=== PATIENT | female | born 1940 | race Caucasian/White ===

== ENCOUNTER 2017-11-09 10:06 | Day surgery (SDC) | payer OTHER, MEDICARE ==
[2017-11-06 19:05] VITALS: BMI 20.9
[2017-11-09 12:28] VITALS: TEMP 97.9
[2017-11-09 12:48] VITALS: BP 111/65; PULSE 65
--- NOTE | 2017-11-10 16:05 | PATH ---
Surgical Pathology Report Patient Name: NAKIA PROCTOR [facility]. Rec. #: [id number] /Age/Gender: 1940 (Age: 77) / F Account: [id number] Location: [facility]-ENDOSCOPY Taken: 11/09/2017 Received: 11/09/2017 Reported: 11/10/2017 Physicians: Omar Palafox M.D. Specimen(s) Received RIGHT COLON Clinical History Rule out colon cancer Postoperative diagnosis: Polyp Final Diagnosis COLON, RIGHT, BIOPSY: SESSILE SERRATED POLYP Electronically Signed Tanja Allred M.D. Gross Description Received in formalin, labeled "right colon" are 2 mcgrath, irregular portions of soft tissue measuring 0.1 and 1.1 cm. in greatest dimension. The specimens are submitted in toto in one cassette. 11/09/201711/09/2017
== END 2017-11-09 12:45 | disposition home or self-care (01) ==
LOC: FASU-ENDO 10:06
PROVIDERS: ATTEND Internal Medicine Gastroenterology
PROC: 0DBK8ZX Excision of Ascending Colon, Via Natural or Artificial Opening Endoscopic, Diagnostic (ICD-10-PCS; principal; 2017-11-09 11:21)
DX: D12.2 Benign neoplasm of ascending colon (principal); K57.30 Diverticulosis of large intestine without perforation or abscess without bleeding; K64.8 Other hemorrhoids; K62.5 Hemorrhage of anus and rectum; R19.4 Change in bowel habit
CPT/HCPCS: 88305-TC

== ENCOUNTER 2018-04-26 22:27 | Emergency (ER) | payer OTHER, MEDICARE ==
--- NOTE | 2018-04-26 22:55 | PDOC ---
Attending Attestation - Physicial Exam PE: 04/26/18 23:58 GENERAL: +thin and petite. Well developed, well nourished. Awake and alert. No acute distress. HEENT: +LT temporal swelling. +LT temporal pain.Normocephalic, atraumatic. PERRLA, EOMI. No conjunctival pallor. Sclera are non-icteric. Moist mucous membranes. Oropharynx is clear. NECK: No midline cervical tenderness. Supple. Full ROM. No JVD. Carotid pulses 2+ and symmetric, without bruits. No thyromegaly. No lymphadenopathy. CARDIOVASCULAR: Regular rate and rhythm. No murmurs, rubs, or gallops. Distal pulses are 2+ and symmetric. PULMONARY: No evidence of respiratory distress. Lungs clear to auscultation bilaterally. No wheezing, rales or rhonchi. ABDOMINAL: Soft. Non-tender. Non-distended. No rebound or guarding. No organomegaly. Normoactive bowel sounds. MUSCULOSKELETAL Normal range of motion at all joints. No bony deformities or tenderness. No CVA tenderness. EXTREMITIES: +LT knee pain on ambulation. +RT knee scar s/p knee replacement. +able to stand and bear weight. No cyanosis. No clubbing. No edema. No calf tenderness. SKIN: Warm and dry. Normal capillary refill. No rashes. No jaundice. NEUROLOGICAL: Alert, awake, appropriate. Cranial nerves 2-12 intact. No motor deficits in the in face, upper extremities and lower extremities. Normal speech. Toes are down- going bilaterally. PSYCHIATRIC: Cooperative. Good eye contact. Appropriate mood and affect - Medical Decision Making 04/27/18 01:40 EXAM: CERVICAL SPINE CT W/O CONTR HISTORY: Patient fell COMPARISON: No prior cervical spine CTs sent for comparison. FINDINGS: There is a grade 1-2 anterolisthesis of C3 on C4. This probably degenerative in nature (but in the absence of old scans it is difficult to confirm. Correlate with pain/tenderness in this area. Slight anterolisthesis of C7 on T1 is probably degenerative as well. The remainder of the cervical vertebrae are normally aligned without fracture. Degenerative changes are noted. EXAM: CT brain without contrast HISTORY: Trauma fall COMPARISON: None. FINDINGS: Involutional changes. 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 Mild chronic microvascular changes. No hemorrhage. Osseous structures are intact Read by Herminio Leigh MD <Eliza Velazquez - Last Filed: 04/27/18 01:40> - Resident Resident Name: Tessy Cruz - ED Attending Attestation I have performed the following: I have examined & evaluated the patient, The case was reviewed & discussed with the resident, I agree w/resident's findings & plan, Exceptions are as noted - HPI HPI: 04/26/18 23:11 77-year-old female who was trying was running and fell forwards and now has complaint of hitting the left side of her head, her left knee and her left hand. She has history of dementia, but she is alert and conversant. She usually ambulates with a cane due to her chronic left knee pain. She has had a knee replacement on her right knee and she has had hip replacement in the past. - Medical Decision Making 04/26/18 23:12 Alert and conversant 77-year-old female who has a history of dementia. She presents with her son after a mechanical fall while running. She thought that her cat was outside the house and ran to catch it and fell forward. Prior to this she was doing her [employer] class. 04/27/18 00:47 CAT scan of the head without contrast findings. 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 Mild chronic microvascular changes No hemorrhage. Osseous structures are intact pt is NOT on anticoagulation 04/27/18 01:43 pelvic no fractures,old ORIF knee radiograph: no dislocation, no acute fracture left hand no acute fracture,significant DJD <Yin Chaves - Last Filed: 04/27/18 01:44> Attestations - Attestations 04/27/18 00:06 Documentation prepared by Eliza Velazquez, acting as medical technologist clinical for Yin Chaves MD. <Eliza Velazquez - Last Filed: 04/27/18 01:40>
--- NOTE | 2018-04-26 22:59 | PDOC ---
History of Present Illness - General Stated Complaint: FALL Time Seen by Provider: 04/26/18 22:55 - History of Present Illness Initial Comments: Nancy Dugan is a 77yo woman with a PMH of dementia, R knee replacement, and previous R hip fracture s/p surgical repair who presents after mechanical fall outside her home this evening. Her son, who is her healthcare proxy, is at bedside. Ms Dugan reports that she went to a [employer] class this evening (dropped off by her son); the class ended at 9pm and she got a ride home. Prior to walking into the house, she thought that she saw her cat running in the alley, and she started to morgan the cat. She then realized it was likely not her cat, but she tripped and fell in the dark. She is not sure what part of her body hit the ground. She denies any lightheadedness, SOB, chest pain or other symptoms before the fall. She denies LOC. Ms Dugan was unable to stand (did not attempt ) after the fall, but she was able to crawl up the front steps and call a neighbor, who called an ambulance. Per her son, her class ended at 9pm and he was informed about the ambulance at 9:15. It does not appear that Ms Dugan was outside or on the ground for more than a few minutes. Ms Dugan is unable to report exactly where she hurts at this time. She does note that both knees, her right hip, and her shoulders hurt though notes that the [employer] class was very straining on her arms. Her son states that the left knee and right hip pain are chronic. She is unable to distinguish whether the pain is different at this time. Past History - Past Medical History Allergies/Adverse Reactions: Allergies Allergy/AdvReac Type Severity Reaction Status Date / Time Sulfa (Sulfonamide Allergy Unknown Verified 04/26/18 23:07 Antibiotics) sulfamethoxazole Allergy Verified 04/26/18 23:07 [From Bactrim] trimethoprim [From Bactrim] Allergy Verified 04/26/18 23:07 midazolam [From Versed] AdvReac Severe SEVERE Verified 04/26/18 23:07 MEMORY LOSS FOR SIX MONTHS AFER RECEIVING Opioids - Morphine Analogues AdvReac Verified 04/26/18 23:07 Home Medications: Ambulatory Orders Kirill/Vit B12/Folic Acid/Vit B6 [Folic Acid-Vit B6-Vit B12 Tab] 1 each PO DAILY L.acidoph,Paracasei, B.lactis [Probiotic] 1 each PO DAILY 11/06/17 Levocarnitine [l-Carnitine] 500 mg PO DAILY 11/06/17 Lutein [Natural Lutein] 20 mg PO DAILY 11/06/17 S-Adenosylmethionine Sul Tosyl [Edwin-E] 400 mg PO DAILY 11/06/17 Ubidecarenone [Coq-10] 200 mg PO DAILY 11/06/17 Anemia: No Asthma: No Cancer: No Cardiac Disorders: No CVA: No COPD: No CHF: No Dementia: No (PT HAS MEMORY LOSS) Diabetes: No GI Disorders: Yes (REDUNDANT BOWEL) Disorders: No HTN: No Hypercholesterolemia: No Liver Disease: No Seizures: No Thyroid Disease: No - Surgical History Abdominal Surgery: No Appendectomy: No Cardiac Surgery: No Cholecystectomy: No Lung Surgery: No Neurologic Surgery: No Orthopedic Surgery: Yes (R KNEE REPLACEMENT) - Immunization History Td Vaccination: No Immunization Up to Date: No - Suicide/Smoking/Psychosocial Hx Smoking Status: No Smoking History: Never smoked Years of Tobacco Use: 0 Number of Cigarettes Smoked Daily: 0 Hx Alcohol Use: No Drug/Substance Use Hx: No Substance Use Type: None Hx Substance Use Treatment: No Trauma Specific PMHX - Complaint Specific PMHX Arthritis: No Back Injury: No Neck Injury: No Hx Sacro Iliac Joint Dysfunction: No Other History: h/o right hip fracture s/p surgical repair, chronic hip and knee pain Review of Systems - Review of Systems Comments:: General: No fevers, no chills, no weight or appetite change, no malaise HEENT: No changes in vision, no changes in hearing, no congestion, no sore throat CV: No chest pain, no palpitations, no LE edema Pulm: No SOB, no cough, no wheezing GI: No nausea or vomiting, no change in bowel habits, no melena : No frequency, no urgency, no dysuria Musc: See HPI Skin: No rash, no lesions, no erythema Endo: No excessive thirst, no heat/cold intolerance Heme: No unusual bruising or bleeding, no swollen glands Neuro: No syncope, no numbness/tingling, no focal weakness. h/o dementia Vasc: No claudication Psych: No recent change in mood, no SI or HI *Physical Exam - Physical Exam Comments: General: Comfortable, no acute distress HEENT: PERRL, EOMI, MMM, voice normal, normal neck ROM, no LAD. Quarter-sized ecchymosis at lateral L eyebrow. Cards: RRR, no murmur appreciated Pulm: Comfortable on room air, clear to auscultation bilaterally Abd: Soft, nontender, nondistended Ext: No LE edema. ROM intact. Strength 5/5 and equal bilaterally. Able to ambulate, bear weight on BLE. Reports TTP diffusely on upper extremities, but otherwise normal UE exam. Reports pain on R hip and R medial/lateral knee w/o visible injury. Pain to palpation of L 5th finger and ulnar surface of hand Vasc: Extremities WWP. Skin: Normal color, no rashes or lesions Neuro: A&Ox3, CN grossly intact, normal speech, motor/sensory grossly intact and symmetric Psych: Mood appropriate to situation Medical Decision Making - Medical Decision Making 04/26/18 23:33 Nancy Dugan is a 77yo woman with a PMH of dementia, R knee replacement and surgical repair of R hip fracture who presents following a mechanical fall at home. - Story convincing for mechanical fall without preceding symptoms. No LOC, but Ms Dugan has forehead ecchymosis and appears frail. CT head and c-spine to rule out acute injury, fracture, intracranial bleed. - Unable to determine from history whether her left knee pain is chronic or acute. Per son, the knee and hip pain are chronic, but reporting pain on exam. Will xray to r/o injury. Also xray L hand as she reports pain at 5th finger. No obvious injuries - 650mg acetaminophen for pain 04/27/18 00:14 - Xrays of L hand, knee, and pelvis reviewed. No fracture, no dislocation. Extensive DJD. - Pt at CT currently. If scans are negative, will likely d/c home as Ms Dugan lives with her son, who seems very reliable 04/27/18 01:35 - CT head and CT c-spine negative for acute injury - Discussed home care with Ms Dugan and her son, who states understanding and agreement. Will follow up with her PMD. Discussed with Dr Chaves. Tessy Cruz PGY1 *DC/Admit/Observation/Transfer Diagnosis at time of Disposition: Fall - Discharge Dispostion Condition at time of disposition: Stable - Referrals - Patient Instructions Printed Discharge Instructions: DI for Closed Head Injury Additional Instructions: Discharge Instructions: - You were seen in the emergency department following a fall at home - You had xrays of your left knee, right hip, and left hand. You also had CT scans of your head and neck. These were all normal, without any fracture, head bleed, or other acute injury. - At home, you may use acetaminophen (Tylenol) 650mg every 6-8 hours as needed for pain. If there is pain or swelling on your face, hand, or knee you can apply ice packs for 15-20minutes every 2 hours - Make an appointment to follow up with your regular doctor within the next week to make sure you are healing well. - Seek immediate medical care if you (or family) notice any increased sleepiness , confusion, significant headache that does not improve with medication, or you have any of these along with 3 or more episodes of vomiting. - Post Discharge Activity
[2018-04-26 23:08] VITALS: BMI 20.5
[2018-04-26] MEDS ORDERED: ACETAMINOPHEN 325 MG TABLET (FP) PO ONE (23:08)
[2018-04-27 01:58] VITALS: BP 123/68; PULSE 88; TEMP 98.5
== END 2018-04-27 01:46 | disposition home or self-care (01) ==
LOC: JER 22:27
DX: S00.12XA Contusion of left eyelid and periocular area, initial encounter (principal); M25.562 Pain in left knee; M79.642 Pain in left hand; W18.39XA Other fall on same level, initial encounter; Y93.02 Activity, running; Y92.018 Other place in single-family (private) house as the place of occurrence of the external cause; Y99.8 Other external cause status; F03.90 Unspecified dementia, unspecified severity, without behavioral disturbance, psychotic disturbance, mood disturbance, and anxiety; Z96.651 Presence of right artificial knee joint; Z88.2 Allergy status to sulfonamides; Z88.8 Allergy status to other drugs, medicaments and biological substances
CPT/HCPCS: 70450-TC; 72125-TC; 72170-TC-FY; 73130-TC-LT-FY; 73560-TC-LT-FY; 99282-25

== ENCOUNTER 2018-04-28 16:40 | Emergency (ER) | payer OTHER, MEDICARE ==
[2018-04-28 16:44] VITALS: BMI 20.5
[2018-04-28] MEDS ORDERED: ACETAMINOPHEN 325 MG TABLET (FP) PO ONE (16:52)
--- NOTE | 2018-04-28 16:53 | PDOC ---
Attending Attestation - Resident Resident Name: Nancy Milligan - ED Attending Attestation I have performed the following: I have examined & evaluated the patient, The case was reviewed & discussed with the resident, I agree w/resident's findings & plan, Exceptions are as noted - HPI HPI: 04/28/18 17:36 Patient with left wrist pain subsequent to a fall several days ago. X-ray at that time was negative for acute fracture, but showed extensive degenerative disease. The ulnar aspect of the wrist is always swollen, but pain is more severe now. There is a history of osteoarthritis but no rheumatoid arthritis or gout. 04/28/18 17:40 - Physicial Exam PE: 04/28/18 17:37 The left wrist shows soft tissue swelling over the radial aspect of the wrist, especially the ulnar styloid. There is no warmth or erythema which would suggest infection. There are no wounds or abrasions. Pulses are full. No distal sensory or motor deficits. Capillary refill intact. - Medical Decision Making 04/28/18 17:38 Assessment: Repeat x-ray shows no acute fracture but extensive degenerative disease with bony erosions and calcium deposits. Most likely this is an inflammatory reaction due to trauma superimposed on extensive DJD. Plan: Volar splint for immobilization. Sling for elevation. Ice. Rest. Small dose of anti-inflammatory medication for just 2 or 3 days. She has a primary care physician with whom she plans to follow-up in 2-3 days, and is referred to an orthopedist if pain and swelling persist or worsen. She is fully ambulatory and more comfortable, in no severe pain or other distress upon discharge the son to follow-up as directed.
[2018-04-28] MEDS ORDERED: ACETAMINOPHEN 325 MG TABLET (FP) ONE (17:06)
[2018-04-28 17:12] VITALS: BP 126/68; PULSE 69; TEMP 97.6
--- NOTE | 2018-04-28 17:30 | PDOC ---
History of Present Illness - General Chief Complaint: Pain, Acute Stated Complaint: LEFT WRIST PAIN Time Seen by Provider: 04/28/18 16:50 History Source: Patient, Family Exam Limitations: No Limitations - History of Present Illness Initial Comments: 04/28/18 17:22 77YOF with h/o dementia, right knee replacement, right hip replacement 2/2 fracture, who returns to the ED 2 days after a fall, now with worsening left wrist and hand pain. She had what sounds to be a mechanical fall 2 nights ago, for which she was seen at [facility] and had CT head/C-spine, and XR chest , pelvis, and left hand. The imaging showed no acute fractures, no ICH or other concerning abnormality. The hand XR was read by radiologist as no acute fracture. The patient notes that the pain and swelling and redness have been worsening since then. She has not tried taking analgesics because she "tries to stay away from that stuff." She notes a bit of mental fogginess since the fall, but otherwise no new symptoms except as stated above. Past History - Past Medical History Allergies/Adverse Reactions: Allergies Allergy/AdvReac Type Severity Reaction Status Date / Time Sulfa (Sulfonamide Allergy Unknown Verified 04/28/18 16:41 Antibiotics) sulfamethoxazole Allergy Verified 04/28/18 16:41 [From Bactrim] trimethoprim [From Bactrim] Allergy Verified 04/28/18 16:41 midazolam [From Versed] AdvReac Severe SEVERE Verified 04/28/18 16:41 MEMORY LOSS FOR SIX MONTHS AFER RECEIVING Opioids - Morphine Analogues AdvReac Verified 04/28/18 16:41 Home Medications: Ambulatory Orders Kirill/Vit B12/Folic Acid/Vit B6 [Folic Acid-Vit B6-Vit B12 Tab] 1 each PO DAILY L.acidoph,Paracasei, B.lactis [Probiotic] 1 each PO DAILY 11/06/17 Levocarnitine [l-Carnitine] 500 mg PO DAILY 11/06/17 Lutein [Natural Lutein] 20 mg PO DAILY 11/06/17 S-Adenosylmethionine Sul Tosyl [Edwin-E] 400 mg PO DAILY 11/06/17 Ubidecarenone [Coq-10] 200 mg PO DAILY 11/06/17 Ibuprofen [Motrin -] 200 mg PO TID #10 tablet 04/28/18 Anemia: No Asthma: No Cancer: No Cardiac Disorders: No CVA: No COPD: No CHF: No Dementia: No (PT HAS MEMORY LOSS) Diabetes: No GI Disorders: Yes (REDUNDANT BOWEL) Disorders: No HTN: No Hypercholesterolemia: No Liver Disease: No Seizures: No Thyroid Disease: No - Surgical History Abdominal Surgery: No Appendectomy: No Cardiac Surgery: No Cholecystectomy: No Lung Surgery: No Neurologic Surgery: No Orthopedic Surgery: Yes (R KNEE REPLACEMENT) - Immunization History Td Vaccination: No Immunization Up to Date: No - Suicide/Smoking/Psychosocial Hx Smoking Status: No Smoking History: Never smoked Years of Tobacco Use: 0 Have you smoked in the past 12 months: No Number of Cigarettes Smoked Daily: 0 Hx Alcohol Use: No Drug/Substance Use Hx: No Substance Use Type: None Hx Substance Use Treatment: No Review of Systems - Review of Systems Able to Perform ROS?: Yes Comments:: GEN: no fever, chills, generalized weakness, or malaise HEENT: no ear pain, eye pain, throat pain, throat swelling, nosebleed, vision change, or loose teeth SKIN: bruises, no cuts, abrasions, rashes, or jaundice CV: no chest pain, palpitations, or LOC RESP: no cough or SOB GI: no abdominal pain, nausea, vomiting, or black/bloody stool : no hematuria or flank pain/bruising MSK: wrist pain and swelling, no muscle weakness NEURO: no headache, seizure, numbness, tingling, or focal weakness PSYCH: no suicidality, homicidality, or substance use *Physical Exam - Vital Signs Last Vital Signs Temp Pulse Resp BP Pulse Ox 97.6 F 69 16 126/68 97 04/28/18 16:41 04/28/18 16:41 04/28/18 16:41 04/28/18 16:41 04/28/18 16:41 - Physical Exam Comments: GENERAL: pleasantly forgetful elderly female accompanied by her son, nontoxic and well-appearing, nourished, no acute distress, speaking in full sentences, answers questions appropriately HEENT: left inferior latter day with days old-appearing small ecchymosis, no cephalohematoma, no raccoon eyes, no lane sign, no jaw malocclusion, PERRLA, EOMI, moist mucous membranes, no posterior pharyngeal erythema, no tonsillar swelling or exudates, no cervical lymphadenopathy NECK: no midline ttp, no spinal stepoff or deformity, full ROM, supple CARDIOVASCULAR: regular rate and rhythm, radial and DP pulses 2+ and symmetric, capillary refill <2 seconds, extremities warm and well-perfused LUNGS/RESPIRATORY: no respiratory distress, lungs CTA bilaterally, equal breath sounds, no cyanosis, no nail clubbing GI/ABDOMEN: symmetric appearance, normoactive bowel sounds, soft, no tenderness to palpation, no midline pulsatile masses BACK: no midline ttp or stepoff or deformity of thoracic or lumbar spine EXTREMITIES: left distal forearm with ulnar>radial edema and ttp, limited ROM at the wrist likely 2/2 swelling, worst ttp is over the ulnar styloid, edema extends to proximal phalanges of digits 2-5 mildlydistal pulses 2+, full ROM MCP /PIP/DIP of all digits, no ttp of digits, sensation and motor intact distally, radial/median/ulnar nerves intact clinically, pulses 2+, extremities otherwise warm and well-perfused, no LE edema SKIN: changes as noted on extremities section; skin otherwise warm and dry, no pallor, no jaundice, no bruising, no rash, no skin breakdown, no cuts, no lesions NEUROLOGICAL: CN II-XII grossly intact, ambulating with normal gait, moving all extremities, 5/5 strength proximally and distally Moderate Sedation - Procedure Monitoring Vital Signs: Procedure Monitoring Vital Signs Temperature 97.6 F 04/28/18 16:41 Pulse Rate 69 04/28/18 16:41 Respiratory Rate 16 04/28/18 16:41 Blood Pressure 126/68 04/28/18 16:41 O2 Sat by Pulse Oximetry (%) 97 04/28/18 16:41 ED Treatment Course - RADIOLOGY Radiology Studies Ordered: Category Date Time Status WRIST W/HAND-LEFT* [RAD] Stat Radiology 04/28/18 16:51 Ordered - Medications Given in the ED: ED Medications Discontinued Medications Generic Name Dose Route Start Last Admin Trade Name Freq PRN Reason Stop Dose Admin Acetaminophen 650 mg 04/28/18 16:52 04/28/18 17:11 Tylenol - PO 04/28/18 16:53 650 mg ONCE ONE Administration Medical Decision Making - Medical Decision Making 04/28/18 17:32 77YOF patient p/w FOOSH 2d ago now with wrist swelling and pain. Initial Vital Signs Temp Pulse Resp BP Pulse Ox 97.6 F 69 16 126/68 97 04/28/18 16:41 04/28/18 16:41 04/28/18 16:41 04/28/18 16:41 04/28/18 16:41 Exam: As noted in Physical Exam section. DDX: soft tissue contusion, exacerbation of chronic arthritis, fracture, dislocation, sprain/strain, ligamentous injury, gout, much less likely septic arthritis as the joint is not warm and the patient is very well appearing. W/U ordered: XR Lt Wrist TX ordered: Tylenol EKG: Reviewed; results as noted in ECG Review section. Left wrist XR: Unchanged from earlier this week. Nothing acute. Old trauma and extensive chronic calcifications. Orthoglass splint placed (volar splint). Patient tolerated procedure well, no complications. Neurovascularly intact distally and strength 5/5 distally. On splint check patient is neurovascularly intact, distal capillary refill <2 seconds. Patient denies any significant pain or pressure from the splint. This patient has gotten significant relief of symptoms while in the ED. On last reassessment, vitals are wnl, pain is reasonably controlled, and exam is benign. Workup is not concerning for emergency-level pathology at this time. This patient is appropriate for discharge with close outpatient follow up. She is given referral information for orthopedist. E-Rx is sent for 200 mg Motrin #10 pills for her to take #1 each, TID, to help reduce inflammation. They are comfortable with this plan and will follow up with their primary care provider in 1-3 days. Referral information given for orthopedist recreation attendant and patient will follow up with them as well. Specific return precautions are discussed and they will come back to the ER if necessary. *DC/Admit/Observation/Transfer Diagnosis at time of Disposition: Wrist pain, left - Discharge Dispostion Disposition: HOME Condition at time of disposition: Stable Decision to Admit order: No - Prescriptions Prescriptions: Ibuprofen [Motrin -] 200 mg PO TID #10 tablet - Referrals Referrals: Luis A Heller MD [Primary Care Provider] - Yared Sky MD [Staff Physician] - - Patient Instructions Additional Instructions: You were seen in the ER for a fall onto your outstretched hand, now with swelling and pain. We took x-rays which showed nothing new. We placed a splint around that wrist, which is not to be taken off until you see your doctor or an orthopedist. After our assessment, we do not believe you are having a medical emergency any longer at this time, and we believe you are safe to go home. Please keep the splint dry; do not expose it to any water. Take Tylenol as needed for pain. We are also sending a prescription for Motrin to your pharmacy , which you should take as instructed on the prescription to reduce inflammation. Please follow up with the orthopedist clinic (we are providing referral information in this information packet). Call their clinic [facility], tell them you were seen in the ER, and tell them you need an appointment. Please come back to the ER at any time, 24 hours a day, for any new or worsening symptoms, especially severe pain or hand numbness and tingling. If you are having severe or life threatening symptoms, or symptoms that make it unsafe to drive or have someone drive you, please call 911. - Post Discharge Activity
[2018-04-28] MEDS ORDERED: IBUPROFEN 200 MG TABLET PO ONE (17:49)
[2018-04-28] MEDS ORDERED: IBUPROFEN 400 MG TABLET (FP) PO ONE (17:50)
== END 2018-04-28 17:59 | disposition home or self-care (01) ==
LOC: FER 16:40
PROC: 2W3DX1Z Immobilization of Left Lower Arm using Splint (ICD-10-PCS; principal; 2018-04-28)
DX: M25.532 Pain in left wrist (principal); Z96.651 Presence of right artificial knee joint; Z96.641 Presence of right artificial hip joint; W18.39XA Other fall on same level, initial encounter; Y93.89 Activity, other specified; Y92.89 Other specified places as the place of occurrence of the external cause
CPT/HCPCS: 73110-TC-LR-FY; 73130-TC-LT-FY; 99283-25

== ENCOUNTER 2018-05-05 08:09 | Emergency (ER) | payer OTHER, MEDICARE ==
[2018-05-05 08:37] VITALS: BP 123/59; PULSE 71; TEMP 98.1; BMI 19.5
[2018-05-05 09:04] LABS: BASO % 1.4 % (0-2.0); EOS % 3.3 % (0-4.5); HEMATOCRIT 37.1 % (32.4-45.2); HEMOGLOBIN 12.4 GM/dl (10.7-15.3); LYMPH % 34.2 % (8-40); MCH 30.9 pg (25.7-33.7); MCHC 33.3 g/dl (32.0-36.0); MEAN CELL VOLUME 92.8 fl (80-96); MEAN PLT VOLUME 8.6 fl (7.5-11.1); MONO % 10.1 % (3.8-10.2); PLATELET COUNT 247 K/MM3 (134-434); RDW 12.8 % (11.6-15.6); WHITE BLOOD COUNT 3.8 K/mm3 (4.0-10.8)
[2018-05-05 09:10] LABS: ANION GAP 9 MMOL/L (8-16); BLOOD UREA NITROGEN 23 mg/dl (7-18); CALCIUM 9.3 mg/dl (8.5-10); CHLORIDE 102 mmol/L (98-107); CO2 25 mmol/L (21-32); CREATININE 0.7 mg/dl (0.55-1.3); GLUCOSE,RANDOM 109 mg/dl (74-106); POTASSIUM 3.6 mmol/L (3.5-5.1); SODIUM 136 mmol/L (136-145)
--- NOTE | 2018-05-05 09:34 | PDOC ---
History of Present Illness - General Chief Complaint: Shortness of Breath Stated Complaint: SOB Time Seen by Provider: 05/05/18 08:25 History Source: Patient, EMS, Family Exam Limitations: Dementia - History of Present Illness Initial Comments: 05/05/18 09:31 77YOF with h/o dementia, right knee replacement, right hip replacement 2/2 fracture with mechanical fall 1 week ago with healing bruise, presents by EMS with SOB, when she woke up this morning at home and sound heard her screaming.. No cp, syncope, singletary/dizziness, AP, n/v, urinary sx, diarrhea or weakness/ paresthesias. Some limitations of ROS and history with dementia. Corroboration by EMS and family/son at bedside. 1 week ago s/p mechanical fall with negative imaging and CT head/C spine. Healing facial contusion on left. No additional falls or injuries. No head trauma/fall today. No f/c or infectious or additional respiratory sx. she also sustained a left wrist sprain ~1 week ago, saw orthopedics this week and uses a brace for treatment/immobilization. Allergies: sulfa allergies Past Medical History: dementia, right knee replacement, right hip replacement 2 /2 fracture Social history: Lives with family. No smoking. No alcohol. No illicit drugs. Surgical history: knee replacement. PMD Dr Pina FUNEZ Constitutional: no fevers or chills. HEENT: no headache or dizziness. No congestion. CVS: no cp or syncope. Resp: +SOB. No cough. Gastrointestinal: no abdominal pain, nausea or vomiting. Genitourinary: no urinary sx MUSCULOSKELETAL: No joint pain and swelling. No neck or back pain. SKIN: no redness or skin changes, no discharge, no rash. No wounds. Hematologic: no easy bruising/bleeding. NEUROLOGIC: No headache, dizziness, LOC or altered mental status. No weakness, numbness or tingling. Allergic/Immunologic: sulfa allergies All other systems reviewed and negative, or as documented in HPI. PE: General: Well appearing, awake and alert, NAD. disoriented at baseline (alert and oriented to person and place) HEENT: NCAT, PERRL, EOMI, clear conjunctiva, anicteric, +left periorbital/ lateral face healing ecchymosis/contusion. clear oropharynx, no oral lesions.. Neck: neck supple, FROM Resp: CTAB, normal and even respirations, no respiratory distress CVS: RRR, no murmurs, 2+ peripheral pulses throughout, no peripheral edema Abdomen: soft, NTND, no peritoneal signs. Back: nontender, normal inspection and ROM MSK: no edema, THURMAN x4, ROM intact. No clubbing or cyanosis. normal bulk and tone. Extremities: no calf tenderness Neuro: alert, oriented to person and place only. Speech clear Skin: warm and well perfused, cap refill <2 sec, normal color 05/05/18 09:36 05/05/18 09:37 05/05/18 09:43 Past History - Past Medical History Allergies/Adverse Reactions: Allergies Allergy/AdvReac Type Severity Reaction Status Date / Time Sulfa (Sulfonamide Allergy Unknown Verified 04/28/18 16:41 Antibiotics) sulfamethoxazole Allergy Verified 04/28/18 16:41 [From Bactrim] trimethoprim [From Bactrim] Allergy Verified 04/28/18 16:41 midazolam [From Versed] AdvReac Severe SEVERE Verified 04/28/18 16:41 MEMORY LOSS FOR SIX MONTHS AFER RECEIVING Opioids - Morphine Analogues AdvReac Verified 04/28/18 16:41 Home Medications: Ambulatory Orders Kirill/Vit B12/Folic Acid/Vit B6 [Folic Acid-Vit B6-Vit B12 Tab] 1 each PO DAILY L.acidoph,Paracasei, B.lactis [Probiotic] 1 each PO DAILY 11/06/17 Levocarnitine [l-Carnitine] 500 mg PO DAILY 11/06/17 Lutein [Natural Lutein] 20 mg PO DAILY 11/06/17 S-Adenosylmethionine Sul Tosyl [Edwin-E] 400 mg PO DAILY 11/06/17 Ubidecarenone [Coq-10] 200 mg PO DAILY 11/06/17 Ibuprofen [Motrin -] 200 mg PO TID #10 tablet 04/28/18 Anemia: No Asthma: No Cancer: No Cardiac Disorders: No CVA: No COPD: No CHF: No Dementia: No (PT HAS MEMORY LOSS) Diabetes: No GI Disorders: Yes (REDUNDANT BOWEL) Disorders: No HTN: No Hypercholesterolemia: No Liver Disease: No Seizures: No Thyroid Disease: No - Surgical History Abdominal Surgery: No Appendectomy: No Cardiac Surgery: No Cholecystectomy: No Lung Surgery: No Neurologic Surgery: No Orthopedic Surgery: Yes (R KNEE REPLACEMENT) - Immunization History Td Vaccination: No Immunization Up to Date: No - Suicide/Smoking/Psychosocial Hx Smoking Status: No Smoking History: Unknown if ever smoked Years of Tobacco Use: 0 Have you smoked in the past 12 months: No Number of Cigarettes Smoked Daily: 0 Information on smoking cessation initiated: No Hx Alcohol Use: No Drug/Substance Use Hx: No Substance Use Type: None Hx Substance Use Treatment: No *Physical Exam - Vital Signs Last Vital Signs Temp Pulse Resp BP Pulse Ox 98.1 F 71 20 123/59 L 100 05/05/18 08:09 05/05/18 08:09 05/05/18 08:09 05/05/18 08:09 05/05/18 08:09 Moderate Sedation - Procedure Monitoring Vital Signs: Procedure Monitoring Vital Signs Temperature 98.1 F 05/05/18 08:09 Pulse Rate 71 05/05/18 08:09 Respiratory Rate 20 05/05/18 08:09 Blood Pressure 123/59 L 05/05/18 08:09 O2 Sat by Pulse Oximetry (%) 100 05/05/18 08:09 Heart Score/ECG Review - ECG Impressions Normal ECG: Yes Comment:: 05/05/18 09:34 EKG normal sinus rhythm, no interval abnormalities, narrow QRS, ST and T wave segments and morphology normal. 05/05/18 09:34 ED Treatment Course - LABORATORY CBC & Chemistry Diagram: 05/05/18 08:46 05/05/18 08:46 - ADDITIONAL ORDERS Additional order review: Laboratory Results 05/05/18 05/05/18 08:46 08:46 Sodium 136 Potassium 3.6 Chloride 102 Carbon Dioxide 25 Anion Gap 9 BUN 23 H Creatinine 0.7 Creat Clearance w eGFR > 60 Random Glucose 109 H Calcium 9.3 Troponin I < 0.03 05/05/18 08:46 RBC 4.00 MCV 92.8 MCHC 33.3 RDW 12.8 MPV 8.6 Neutrophils % 51.0 Lymphocytes % 34.2 Monocytes % 10.1 Eosinophils % 3.3 Basophils % 1.4 - RADIOLOGY Radiology Studies Ordered: Category Date Time Status CHEST PA & LAT [RAD] Stat Radiology 05/05/18 08:25 Taken Medical Decision Making - Medical Decision Making 05/05/18 09:32 See HPI for details DDx. pulmonary edema, infection, anxiety, ACS, angina, arrhythmia, GERD, esophageal spasm, metabolic /electrolyte derangements, anemia, anxiety. Vital signs reviewed, wnl. Prior notes reviewed, including admissions, discharges and consultations. laboratory results and imaging reviewed, basic labs and lytes wnl CXR_clear lungs, no edema or infiltrate, normal cardiac contours. Cardiac panel_neg trop, unlikely ACS or cardiac. EKG normal sinus rhythm, no interval abnormalities, narrow QRS, ST and T wave segments and morphology normal. ED course : no acute events. at baseline status. lungs are clear, no respiratory distress workup neg discussed with son regarding results. back at baseline status, waxes/waning mental status at times, but normal workup here and reassuring appearance has good f/u with Dr Heller, fall safety preventions reviewed and continued supportive care and outpatient workup for snoring/possible sleep apnea, that may have contributed to sx today. Dispo: Pt and family (son) informed of my clinical impression, treatment recommendations and disposition plan. All questions answered to patient/family' s satisfaction and expressed understanding and comfort with this. Reasons for returning to the ED sooner discussed with the patient otherwise, follow up with primary care physician. At the time of discharge, the patient is alert, clinically improved, tolerating po and verbalizes understanding of instructions. Patient does not suffer from an acute life-threatening medical condition at this time she is safe for outpatient follow-up. 05/05/18 09:43 *DC/Admit/Observation/Transfer Diagnosis at time of Disposition: Shortness of breath, Dementia - Discharge Dispostion Disposition: HOME Condition at time of disposition: Improved Decision to Admit order: No - Referrals Referrals: Luis A Heller MD [Staff Physician] - - Patient Instructions Printed Discharge Instructions: DI for Shortness of Breath Additional Instructions: your blood work here has all been normal Chest xray was clear, no fluid or infection EKG also normal Follow up with your physician and consultants as instructed, take your medications as instructed Return if worsening symptoms including fevers, headache, vomiting, visual or hearing disturbances, abdominal pain, chest pain, shortness of breath, syncope, dehydration, inability to take things by mouth/vomiting, altered mental status, or worsening concerning symptoms. - Post Discharge Activity
--- NOTE | 2018-05-05 14:54 | EKG ---
Test Reason : Blood Pressure : / mmHG Vent. Rate : 058 BPM Atrial Rate : 058 BPM P-R Int : 138 ms QRS Dur : 086 ms QT Int : 446 ms P-R-T Axes : 009 -20 045 degrees QTc Int : 437 ms SINUS BRADYCARDIA OTHERWISE NORMAL ECG WHEN COMPARED WITH ECG OF 05-SEP-2013 20:07, NO SIGNIFICANT CHANGE WAS FOUND Confirmed by JOE BUENROSTRO MD ([id number]) on 05/05/2018 2:53:53 PM Referred By: LOU CANCHOLA Confirmed By:JOE BUENROSTRO MD
== END 2018-05-05 10:01 | disposition home or self-care (01) ==
LOC: FER 08:09
DX: R06.02 Shortness of breath (principal); F03.90 Unspecified dementia, unspecified severity, without behavioral disturbance, psychotic disturbance, mood disturbance, and anxiety; Z96.641 Presence of right artificial hip joint; Z96.651 Presence of right artificial knee joint
CPT/HCPCS: 36415; 71046-TC-FY; 80048; 84484; 85025; 93005; 99281-25

== ENCOUNTER 2019-05-21 20:44 | Inpatient (IN) | payer OTHER, MEDICARE ==
[2019-05-21] MEDS ORDERED: SODIUM CHLORIDE 1,000 ML IV STA (20:54)
--- NOTE | 2019-05-21 21:01 | PDOC ---
Attending Attestation - Resident Resident Name: Adilia Da Silva - ED Attending Attestation I have performed the following: I have examined & evaluated the patient, The case was reviewed & discussed with the resident, I agree w/resident's findings & plan - HPI HPI: 05/21/19 21:29 Pt comes with spasticity and chronically biting her teeth and grinding her teeth - Physicial Exam PE: 05/21/19 21:30 Afebrile VSS Pt has normal heart and lungs Abd soft NT ND pt is spastic; right arm flexed; bilat legs are extended and spastic. Pt is very rigid and eyes are closed. She answers to her name being called, but she doesn't interact. doesn't open eyes Pt is anxious and appears scared. - Medical Decision Making 05/21/19 21:28 No pneumonia on CXR rectal temp is 99F Pt is very stiff' left leg is completely spastic 05/21/19 22:39 Labs normal lactate elevated she will be admitted for the spasms 05/22/19 01:14 Pt has a UTI and she will be treated with ceftriaxone Heart Score/ECG Review - ECG Intrepretation Rhythm: Regular Rhythm - [place]: Normal - P and NH Delta Wave(s) Present: No WPW: No - QRS Poor R Wave Progression: No Q Wave Present: No - ST and T Early Repolarization: No Non Specific ST-T Wave changes: No Flattened T Waves: No Prolonged Q-T Interval: No - ECG Impressions Normal ECG: Yes Non-specific ST Elevation: No Ischemic Changes: No Comment:: 05/22/19 01:13 POOR BASELINE
[2019-05-21 21:15] LABS: BASO % 1.3 % (0-2.0); EOS % 3.7 % (0-4.5); HEMATOCRIT 36.9 % (32.4-45.2); HEMOGLOBIN 12.6 GM/dL (10.7-15.3); LYMPH % 30.2 % (8-40); MCH 30.1 pg (25.7-33.7); MCHC 34.1 g/dl (32.0-36.0); MEAN CELL VOLUME 88.4 fl (80-96); MEAN PLT VOLUME 8.6 fl (7.5-11.1); MONO % 10.2 % (3.8-10.2); NEUT % 54.6 % (42.8-82.8); PLATELET COUNT 403 K/MM3 (134-434); RBC 4.17 M/mm3 (3.60-5.2); WHITE BLOOD COUNT 7.8 K/mm3 (4.0-10.0)
[2019-05-21] MEDS ORDERED: ACETAMINOPHEN 1000 MG/100 ML VIAL (NON FORMULARY) IVPB ONE (21:16)
[2019-05-21] MEDS ORDERED: BENZTROPINE MESYLATE 2 MG/2 ML INJECTION IM ONE (21:30)
[2019-05-21 21:32] LABS: VENOUS PC02 26.9 mmHg (38-52); VENOUS PH 7.59 (7.31-7.41)
[2019-05-21] MEDS ORDERED: ACETAMINOPHEN INJECTION 100 ML IVPB ONE (21:33)
[2019-05-21 21:34] LABS: VENOUS PO2 < 49 mmHg (28-48)
[2019-05-21 21:35] LABS: INR 0.87 (0.83-1.09); PROTHROMBIN TIME (PATIENT) 10.2 SEC (9.7-13.0)
[2019-05-21 21:37] LABS: ACTIVATED PTT 31.4 SECONDS (25.2-36.5)
[2019-05-21 21:45] LABS: ALBUMIN 3.2 g/dl (3.4-5.0); BILIRUBIN,TOTAL 0.1 mg/dL (0.2-1); BLOOD UREA NITROGEN 28.4 mg/dL (7-18); CALCIUM 9.6 mg/dL (8.5-10.1); CREATININE 0.9 mg/dL (0.55-1.3); POTASSIUM 4.4 mmol/L (3.5-5.1); TOT PROT 6.9 g/dl (6.4-8.2)
--- NOTE | 2019-05-21 23:03 | PDOC ---
History of Present Illness - General Chief Complaint: Respiratory Stated Complaint: RESPIRATORY DISTRESS Time Seen by Provider: 05/21/19 20:58 - History of Present Illness Initial Comments: 05/21/19 23:06 78 yo F PMH neurological disorder (uncertain diagnosis, followed by Dr. Avalos at [facility] for neurology, ddx from Parkinson's to Creutz Kartik, precipitous decline in mental status over the past year), dementia, presenting with tachypnea and bruxism. Patient has history of episodes where her teeth grind in the past and is on Baclofen, but normally she stops when told to by family. Today, there has been no surcease, and she has been breathing quickly for multiple hours. Family also states that she has had worsening rigidity over the past several days (has had rigidity in her arms and legs over the past year, possibly 2/2 to unknown neurological disorder). Past History - Past Medical History Allergies/Adverse Reactions: Allergies Allergy/AdvReac Type Severity Reaction Status Date / Time Sulfa (Sulfonamide Allergy Unknown Verified 04/28/18 16:41 Antibiotics) sulfamethoxazole Allergy Verified 04/28/18 16:41 [From Bactrim] trimethoprim [From Bactrim] Allergy Verified 04/28/18 16:41 midazolam [From Versed] AdvReac Severe SEVERE Verified 04/28/18 16:41 MEMORY LOSS FOR SIX MONTHS AFER RECEIVING Opioids - Morphine Analogues AdvReac Verified 04/28/18 16:41 Home Medications: Ambulatory Orders Kirill/Vit B12/Folic Acid/Vit B6 [Folic Acid-Vit B6-Vit B12 Tab] 1 each PO DAILY L.acidoph,Paracasei, B.lactis [Probiotic] 1 each PO DAILY 11/06/17 Levocarnitine [l-Carnitine] 500 mg PO DAILY 11/06/17 Lutein [Natural Lutein] 20 mg PO DAILY 11/06/17 S-Adenosylmethionine Sul Tosyl [Edwin-E] 400 mg PO DAILY 11/06/17 Ubidecarenone [Coq-10] 200 mg PO DAILY 11/06/17 Ibuprofen [Motrin -] 200 mg PO TID #10 tablet 04/28/18 Anemia: No Asthma: No Cancer: No Cardiac Disorders: No CVA: No COPD: No CHF: No Dementia: No (PT HAS MEMORY LOSS) Diabetes: No GI Disorders: Yes (REDUNDANT BOWEL) Disorders: No HTN: No Hypercholesterolemia: No Liver Disease: No Seizures: No Thyroid Disease: No - Surgical History Abdominal Surgery: No Appendectomy: No Cardiac Surgery: No Cholecystectomy: No Lung Surgery: No Neurologic Surgery: No Orthopedic Surgery: Yes (R KNEE REPLACEMENT) - Immunization History Td Vaccination: No Immunization Up to Date: No - Psycho Social/Smoking Cessation Hx Smoking Status: No Smoking History: Unknown if ever smoked Years of Tobacco Use: 0 Have you smoked in the past 12 months: No Number of Cigarettes Smoked Daily: 0 Hx Alcohol Use: No Drug/Substance Use Hx: No Substance Use Type: None Hx Substance Use Treatment: No Review of Systems - Review of Systems Able to Perform ROS?: No (dementia) *Physical Exam - Vital Signs Last Vital Signs Temp Pulse Resp BP Pulse Ox 98.9 F 87 34 H 125/61 98 05/21/19 21:10 05/21/19 21:10 05/21/19 21:10 05/21/19 21:10 05/21/19 21:10 - Physical Exam 05/22/19 05:30 GENERAL: Awake, alert, appears anxious, does not answer orientation questions HEAD: Normal with no signs of trauma EYES: Pupils equal, round and reactive to light, extraocular movements intact, sclera anicteric, conjunctiva clear. No lid lag EARS, NOSE, THROAT: Ears normal, nares patent, oropharynx clear without exudates. Dry mucous membranes NECK: Normal range of motion, supple without lymphadenopathy, JVD, or masses LUNGS: Tachypneic. Breath sounds equal, clear to auscultation bilaterally. No wheezes, and no crackles. HEART: Regular rate and rhythm, normal S1 and S2 without murmur, rub or gallop. ABDOMEN: Soft, nontender, non-distended, normoactive bowel sounds, negative guarding, negative rebound MUSCULOSKELETAL: Diffusely contracted in arms and legs. No bony deformities or tenderness. No CVA tenderness. NEUROLOGICAL: Unable to assess, parrots statements made toward her SKIN: Warm, dry ED Treatment Course - LABORATORY CBC & Chemistry Diagram: 05/21/19 21:00 05/21/19 21:00 - ADDITIONAL ORDERS Additional order review: Laboratory Results 05/21/19 05/21/19 05/21/19 21:00 21:00 21:00 PT with INR INR PTT (Actin FS) VBG pH 7.59 H POC VBG pCO2 26.9 L POC VBG pO2 < 49 H VBG HCO3 25.6 VBG O2 Sat (Mercedes) 67.6 L VBG Base Excess 4.5 H Sodium 135 L Potassium 4.4 Chloride 102 Carbon Dioxide 23 Anion Gap 9 BUN 28.4 H Creatinine 0.9 Est GFR (CKD-EPI)AfAm 70.98 Est GFR (CKD-EPI)NonAf 61.24 Random Glucose 88 Lactic Acid 2.7 H* Calcium 9.6 Total Bilirubin 0.1 L AST 17 ALT 19 Alkaline Phosphatase 69 Creatine Kinase Troponin I Total Protein 6.9 Albumin 3.2 L 05/21/19 05/21/19 21:00 21:00 PT with INR 10.20 INR 0.87 PTT (Actin FS) 31.4 VBG pH POC VBG pCO2 POC VBG pO2 VBG HCO3 VBG O2 Sat (Mercedes) VBG Base Excess Sodium Potassium Chloride Carbon Dioxide Anion Gap BUN Creatinine Est GFR (CKD-EPI)AfAm Est GFR (CKD-EPI)NonAf Random Glucose Lactic Acid Calcium Total Bilirubin AST ALT Alkaline Phosphatase Creatine Kinase 45 Troponin I < 0.02 Total Protein Albumin 05/21/19 21:00 RBC 4.17 MCV 88.4 MCHC 34.1 RDW 14.0 MPV 8.6 Neutrophils % 54.6 Lymphocytes % 30.2 Monocytes % 10.2 Eosinophils % 3.7 Basophils % 1.3 - Medications Given in the ED: ED Medications Discontinued Medications Generic Name Dose Route Start Last Admin Trade Name Freq PRN Reason Stop Dose Admin Acetaminophen 1,000 mg 05/21/19 21:16 05/21/19 22:06 Ofirmev Injection - IVPB 05/21/19 21:17 1,000 mg ONCE ONE Administration Benztropine Mesylate 2 mg 05/21/19 21:30 05/21/19 22:06 Cogentin Injection - IM 05/21/19 21:31 2 mg NOW ONE Administration Diphenhydramine HCl 50 mg 05/21/19 21:26 05/21/19 21:42 Benadryl Injection - IVPUSH 05/21/19 21:27 50 mg ONCE ONE Administration Sodium Chloride 1,000 mls @ 1,000 mls/hr 05/21/19 20:54 05/21/19 21:25 Normal Saline - IV 05/21/19 21:53 1,000 mls/hr ASDIR STA Administration Lorazepam 2 mg 05/21/19 21:17 05/21/19 21:50 Ativan Injection - IVPUSH 05/21/19 21:18 Not Given ONCE ONE Medical Decision Making - Medical Decision Making 05/21/19 23:10 Concern for worsening bruxism and tachypnea, possible infection. - sepsis workup - Benadryl/Cogentin - admit 05/21/19 23:11 CXR without PNA, lactic acidosis to 2.7. pH 7.50, pCO2 26.9, consistent with respiratory alkalosis. Will admit patient for lactic acidosis, bruxism. Discharge - Discharge Information Problems reviewed: Yes Clinical Impression/Diagnosis: Bruxism (teeth grinding), Tachypnea, Lactic acidosis - Follow up/Referral - Patient Discharge Instructions - Post Discharge Activity
[2019-05-22 00:27] LABS: EPI CELLS 0.3 /HPF (0-5/HPF); HYALINE CASTS 1 /lpf (0-8); PH,URINE 8.5 (5.0-8.0); URINE APPEARANCE TURBID; URINE BACTERIA 2455.2 /hpf (NEGATIVE); URINE BILIRUBIN NEGATIVE (NEGATIVE); URINE COLOR YELLOW; URINE GLUCOSE (UA) NEGATIVE (NEGATIVE); URINE KETONE NEGATIVE (NEGATIVE); URINE LEUK ESTERASE 3+ (NEGATIVE); URINE NITRITE POSITIVE (NEGATIVE); URINE PROTEIN NEGATIVE (NEGATIVE); URINE RBC 9 /hpf (0-4); URINE UROBILINOGEN 0.2 mg/dL (0.2-1.0); URINE WBC 675 /hpf (0-5)
--- NOTE | 2019-05-22 00:35 | HP ---
<Valente Fernandes - Last Filed: 05/22/19 01:34> CHIEF COMPLAINT: spasticity HISTORY OF PRESENT ILLNESS: This is a 78 yo F with a PMHx significant for a neurological disorder (uncertain diagnosis, followed by Dr. Avalos at [facility] for neurology), unknown dx if Parkinson's/LB dementia vs Ricardo Leigh, who p/w precipitous decline in mental status, tachypnea and worsened bruxism. Patient has history of episodes where her teeth grind in the past and is on Baclofen, but normally she stops when told to by family. She also has worsened spasticity more so in the LLE than the other leg. Family at bedside, who also states that she has had worsening rigidity over the past several days ( has had rigidity in her arms and legs over the past year, possibly 2/2 to unknown neurological disorder). Pt not exhibiting any cp, sob, bowel/bladder complaints, fevers, chills,increased frequency or dysuria at this time. ER course was notable for: (1)UA 3+ leuk est, 2455 bacteria (2)LA- 2.7, cxr negative for pna (3) PAST SURGICAL HISTORY: rt knee replacement (2011), Lt hip fracture (2016) Social History: Smoking: denies Alcohol:denies Drugs: denies Allergies Sulfa (Sulfonamide Antibiotics) Allergy (Unknown, Verified 04/28/18 16:41) sulfamethoxazole [From Bactrim] Allergy (Verified 04/28/18 16:41) trimethoprim [From Bactrim] Allergy (Verified 04/28/18 16:41) midazolam [From Versed] Adverse Reaction (Severe, Verified 04/28/18 16:41) SEVERE MEMORY LOSS FOR SIX MONTHS AFER RECEIVING Opioids - Morphine Analogues Adverse Reaction (Verified 04/28/18 16:41) "GOT DISORIENTED" "TOOK A LOG TIME TO GET OUT OF ME" HOME MEDICATIONS: Home Medications Medication Instructions Recorded Kirill/Vit B12/Folic Acid/Vit B6 1 each PO DAILY 11/06/17 [Folic Acid-Vit B6-Vit B12 Tab] L.acidoph,Paracasei, B.lactis 1 each PO DAILY 11/06/17 [Probiotic] Levocarnitine [l-Carnitine] 500 mg PO DAILY 11/06/17 Lutein [Natural Lutein] 20 mg PO DAILY 11/06/17 S-Adenosylmethionine Sul Tosyl 400 mg PO DAILY 11/06/17 [Edwin-E] Ubidecarenone [Coq-10] 200 mg PO DAILY 11/06/17 Ibuprofen [Motrin -] 200 mg PO TID #10 tablet 04/28/18 REVIEW OF SYSTEMS negative except as above PHYSICAL EXAMINATION Vital Signs - 24 hr 05/21/19 21:10 Temperature 98.9 F Pulse Rate 87 Respiratory 34 H Rate Blood Pressure 125/61 O2 Sat by Pulse 98 Oximetry (%) GENERAL: Awake, agitated, oriented to place and self, not year. exhibiting bruxism HEAD: Normal with no signs of trauma. LUNGS: Breath sounds equal, clear to auscultation bilaterally. No wheezes, and no crackles. No accessory muscle use. HEART: Regular rate and rhythm, normal S1 and S2 without murmur, rub or gallop. ABDOMEN: Soft, nontender, not distended, normoactive bowel sounds, no guarding, no rebound, no masses. No hepatomegaly or splenomegaly. LOWER EXTREMITIES: 2+ pulses, warm, well-perfused. No calf tenderness. No peripheral edema. Spastic left lower extremity unable to bend b/l LE's. NEUROLOGICAL: Normal speech. PSYCHIATRIC: agitated with bruxism Laboratory Results - last 24 hr 05/21/19 05/21/19 05/21/19 21:00 21:00 21:00 WBC 7.8 RBC 4.17 Hgb 12.6 Hct 36.9 MCV 88.4 MCH 30.1 MCHC 34.1 RDW 14.0 Plt Count 403 D MPV 8.6 Absolute Neuts (auto) 4.2 Neutrophils % 54.6 Lymphocytes % 30.2 Monocytes % 10.2 Eosinophils % 3.7 Basophils % 1.3 Nucleated RBC % 0 PT with INR 10.20 INR 0.87 PTT (Actin FS) 31.4 VBG pH POC VBG pCO2 POC VBG pO2 VBG HCO3 VBG O2 Sat (Mercedes) VBG Base Excess Sodium Potassium Chloride Carbon Dioxide Anion Gap BUN Creatinine Est GFR (CKD-EPI)AfAm Est GFR (CKD-EPI)NonAf Random Glucose Lactic Acid Calcium Total Bilirubin AST ALT Alkaline Phosphatase Creatine Kinase 45 Troponin I < 0.02 Total Protein Albumin Urine Color Urine Appearance Urine pH Ur Specific [place] Urine Protein Urine Glucose (UA) Urine Ketones Urine Blood Urine Nitrite Urine Bilirubin Urine Urobilinogen Ur Leukocyte Esterase Urine WBC (Auto) Urine RBC (Auto) Urine Casts (Auto) U Epithel Cells (Auto) Urine Bacteria (Auto) 05/21/19 05/21/19 05/21/19 21:00 21:00 21:00 WBC RBC Hgb Hct MCV MCH MCHC RDW Plt Count MPV Absolute Neuts (auto) Neutrophils % Lymphocytes % Monocytes % Eosinophils % Basophils % Nucleated RBC % PT with INR INR PTT (Actin FS) VBG pH 7.59 H POC VBG pCO2 26.9 L POC VBG pO2 < 49 H VBG HCO3 25.6 VBG O2 Sat (Mercedes) 67.6 L VBG Base Excess 4.5 H Sodium 135 L Potassium 4.4 Chloride 102 Carbon Dioxide 23 Anion Gap 9 BUN 28.4 H Creatinine 0.9 Est GFR (CKD-EPI)AfAm 70.98 Est GFR (CKD-EPI)NonAf 61.24 Random Glucose 88 Lactic Acid 2.7 H* Calcium 9.6 Total Bilirubin 0.1 L AST 17 ALT 19 Alkaline Phosphatase 69 Creatine Kinase Troponin I Total Protein 6.9 Albumin 3.2 L Urine Color Urine Appearance Urine pH Ur Specific [place] Urine Protein Urine Glucose (UA) Urine Ketones Urine Blood Urine Nitrite Urine Bilirubin Urine Urobilinogen Ur Leukocyte Esterase Urine WBC (Auto) Urine RBC (Auto) Urine Casts (Auto) U Epithel Cells (Auto) Urine Bacteria (Auto) 05/21/19 23:55 WBC RBC Hgb Hct MCV MCH MCHC RDW Plt Count MPV Absolute Neuts (auto) Neutrophils % Lymphocytes % Monocytes % Eosinophils % Basophils % Nucleated RBC % PT with INR INR PTT (Actin FS) VBG pH POC VBG pCO2 POC VBG pO2 - c VBG HCO3 VBG O2 Sat (Mercedes) VBG Base Excess Sodium Potassium Chloride Carbon Dioxide Anion Gap BUN Creatinine Est GFR (CKD-EPI)AfAm Est GFR (CKD-EPI)NonAf Random Glucose Lactic Acid Calcium Total Bilirubin AST ALT Alkaline Phosphatase Creatine Kinase Troponin I Total Protein Albumin Urine Color Yellow Urine Appearance Turbid Urine pH 8.5 H Ur Specific [place] 1.014 Urine Protein Negative Urine Glucose (UA) Negative Urine Ketones Negative Urine Blood 1+ H Urine Nitrite Positive H Urine Bilirubin Negative Urine Urobilinogen 0.2 Ur Leukocyte Esterase 3+ H Urine WBC (Auto) 675 Urine RBC (Auto) 9 Urine Casts (Auto) 1 U Epithel Cells (Auto) 0.3 Urine Bacteria (Auto) 2455.2 ASSESSMENT/PLAN: This is a 78 yo F with a PMHx significant for a neurological disorder ( uncertain diagnosis, followed by Dr. Avalos at [facility] for neurology), unknown dx if Parkinson's/LB dementia vs Creutzjairon Leigh, who p/w precipitous decline in mental status, tachypnea and worsened bruxism. Patient has history of episodes where her teeth grind in the past and is on Baclofen, but normally she stops when told to by family. #Acute cystitis - UA 3+ leuk est with 2455 bacteria - bed bound mostly 2/2 stasis - ceftriaxone 2 g daily - ? if acute mental status changes is 2/2 UTI - bladder scan pending result and trial of voiding - if unable to void will place evans - urine culture/blood culture ordered #Neurologic dysfunction/Bruxism - possibly 2/2 UTI vs underlying PD/LB dementia vs Tardive dyskinesia but doubt it given not on antipsychotic and symptoms not aligned completely. - son refuse meds for bruxism, benzo haldol clonidine - neurology consult (Dr. Vargas) for spasticity and proper neurologic dx identification with possible EMG. 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 - psych consult for psych med optimization (Dr. Davenport) - continue home med baclofen 10 BID, per family pt only on CBD cream and baclofen - benadryl prn for agitation/? Tardive dyskinesia - Utox pending - ekg ordered - B12, Folic acid, TSH, cpk, mg, phos pending DVT Ppx: Heparin [id number] Visit type - Emergency Visit Emergency Visit: Yes ED Registration Date: 05/21/19 Care time: The patient presented to the Emergency Department on the above date and was hospitalized for further evaluation of their emergent condition. - New Patient This patient is new to me today: Yes Date on this admission: 05/22/19 - Critical Care Critical Care patient: No ATTENDING PHYSICIAN STATEMENT I saw and evaluated the patient. I reviewed the resident's note and discussed the case with the resident. I agree with the resident's findings and plan as documented. SUBJECTIVE: OBJECTIVE: ASSESSMENT AND PLAN: <Brian Interiano - Last Filed: 05/22/19 07:09> CHIEF COMPLAINT: PCP: HISTORY OF PRESENT ILLNESS: ER course was notable for: (1) (2) (3) Recent Travel: PAST MEDICAL HISTORY: PAST SURGICAL HISTORY: Social History: Smoking: Alcohol: Drugs: Allergies Sulfa (Sulfonamide Antibiotics) Allergy (Unknown, Verified 04/28/18 16:41) sulfamethoxazole [From Bactrim] Allergy (Verified 04/28/18 16:41) trimethoprim [From Bactrim] Allergy (Verified 04/28/18 16:41) midazolam [From Versed] Adverse Reaction (Severe, Verified 04/28/18 16:41) SEVERE MEMORY LOSS FOR SIX MONTHS AFER RECEIVING Opioids - Morphine Analogues Adverse Reaction (Verified 04/28/18 16:41) "GOT DISORIENTED" "TOOK A LOG TIME TO GET OUT OF ME" HOME MEDICATIONS: Home Medications Medication Instructions Recorded Kirill/Vit B12/Folic Acid/Vit B6 1 each PO DAILY 11/06/17 [Folic Acid-Vit B6-Vit B12 Tab] L.acidoph,Paracasei, B.lactis 1 each PO DAILY 11/06/17 [Probiotic] Levocarnitine [l-Carnitine] 500 mg PO DAILY 11/06/17 Lutein [Natural Lutein] 20 mg PO DAILY 11/06/17 S-Adenosylmethionine Sul Tosyl 400 mg PO DAILY 11/06/17 [Edwin-E] Ubidecarenone [Coq-10] 200 mg PO DAILY 11/06/17 Ibuprofen [Motrin -] 200 mg PO TID #10 tablet 04/28/18 REVIEW OF SYSTEMS CONSTITUTIONAL: Absent: fever, chills, diaphoresis, generalized weakness, malaise, loss of appetite, weight change HEENT: Absent: rhinorrhea, nasal congestion, throat pain, throat swelling, difficulty swallowing, mouth swelling, ear pain, eye pain, visual changes CARDIOVASCULAR: Absent: chest pain, syncope, palpitations, irregular heart rate, lightheadedness , peripheral edema RESPIRATORY: Absent: cough, shortness of breath, dyspnea with exertion, orthopnea, wheezing, stridor, hemoptysis GASTROINTESTINAL: Absent: abdominal pain, abdominal distension, nausea, vomiting, diarrhea, constipation, melena, hematochezia GENITOURINARY: Absent: dysuria, frequency, urgency, hesitancy, hematuria, flank pain, genital pain MUSCULOSKELETAL: Absent: myalgia, arthralgia, joint swelling, back pain, neck pain SKIN: Absent: rash, itching, pallor HEMATOLOGIC/IMMUNOLOGIC: Absent: easy bleeding, easy bruising, lymphadenopathy, frequent infections ENDOCRINE: Absent: unexplained weight gain, unexplained weight loss, heat intolerance, cold intolerance NEUROLOGIC: Absent: headache, focal weakness or paresthesias, dizziness, unsteady gait, seizure, mental status changes, bladder or bowel incontinence PSYCHIATRIC: Absent: anxiety, depression, suicidal or homicidal ideation, hallucinations. PHYSICAL EXAMINATION Vital Signs - 24 hr 05/21/19 05/21/19 05/22/19 21:10 23:50 05:28 Temperature 98.9 F 97.7 F Pulse Rate 87 68 Pulse Rate [ 67 Apical] Respiratory 34 H 24 H 20 Rate Blood Pressure 125/61 141/69 Blood Pressure 130/67 [Left Arm] O2 Sat by Pulse 98 97 97 Oximetry (%) 05/22/19 06:00 Temperature 99.5 F Pulse Rate 80 Pulse Rate [ Apical] Respiratory 20 Rate Blood Pressure 125/78 Blood Pressure [Left Arm] O2 Sat by Pulse Oximetry (%) GENERAL: Awake, alert, and fully oriented, in no acute distress. HEAD: Normal with no signs of trauma. EYES: Pupils equal, round and reactive to light, extraocular movements intact, sclera anicteric, conjunctiva clear. No lid lag. EARS, NOSE, THROAT: Ears normal, nares patent, oropharynx clear without exudates. Moist mucous membranes. NECK: Normal range of motion, supple without lymphadenopathy, JVD, or masses. LUNGS: Breath sounds equal, clear to auscultation bilaterally. No wheezes, and no crackles. No accessory muscle use. HEART: Regular rate and rhythm, normal S1 and S2 without murmur, rub or gallop. ABDOMEN: Soft, nontender, not distended, normoactive bowel sounds, no guarding, no rebound, no masses. No hepatomegaly or splenomegaly. MUSCULOSKELETAL: Normal range of motion at all joints. No bony deformities or tenderness. No CVA tenderness. UPPER EXTREMITIES: 2+ pulses, warm, well-perfused. No cyanosis. No clubbing. No peripheral edema. LOWER EXTREMITIES: 2+ pulses, warm, well-perfused. No calf tenderness. No peripheral edema. NEUROLOGICAL: Cranial nerves II-XII intact. Normal speech. Normal gait. PSYCHIATRIC: Cooperative. Good eye contact. Appropriate mood and affect. SKIN: Warm, dry, normal turgor, no rashes or lesions noted, normal capillary refill. Laboratory Results - last 24 hr 05/21/19 05/21/19 05/21/19 21:00 21:00 21:00 WBC 7.8 RBC 4.17 Hgb 12.6 Hct 36.9 MCV 88.4 MCH 30.1 MCHC 34.1 RDW 14.0 Plt Count 403 D MPV 8.6 Absolute Neuts (auto) 4.2 Neutrophils % 54.6 Lymphocytes % 30.2 Monocytes % 10.2 Eosinophils % 3.7 Basophils % 1.3 Nucleated RBC % 0 PT with INR 10.20 INR 0.87 PTT (Actin FS) 31.4 VBG pH POC VBG pCO2 POC VBG pO2 VBG HCO3 VBG O2 Sat (Mercedes) VBG Base Excess Sodium Potassium Chloride Carbon Dioxide Anion Gap BUN Creatinine Est GFR (CKD-EPI)AfAm Est GFR (CKD-EPI)NonAf Random Glucose Lactic Acid Calcium Total Bilirubin AST ALT Alkaline Phosphatase Creatine Kinase 45 Troponin I < 0.02 Total Protein Albumin Urine Color Urine Appearance Urine pH Ur Specific [place] Urine Protein Urine Glucose (UA) Urine Ketones Urine Blood Urine Nitrite Urine Bilirubin Urine Urobilinogen Ur Leukocyte Esterase Urine WBC (Auto) Urine RBC (Auto) Urine Casts (Auto) U Epithel Cells (Auto) Urine Bacteria (Auto) Influenza A (Rapid) Influenza B (Rapid) 05/21/19 05/21/19 05/21/19 21:00 21:00 21:00 WBC RBC Hgb Hct MCV MCH MCHC RDW Plt Count MPV Absolute Neuts (auto) Neutrophils % Lymphocytes % Monocytes % Eosinophils % Basophils % Nucleated RBC % PT with INR INR PTT (Actin FS) VBG pH 7.59 H POC VBG pCO2 26.9 L POC VBG pO2 < 49 H VBG HCO3 25.6 VBG O2 Sat (Mercedes) 67.6 L VBG Base Excess 4.5 H Sodium 135 L Potassium 4.4 Chloride 102 Carbon Dioxide 23 Anion Gap 9 BUN 28.4 H Creatinine 0.9 Est GFR (CKD-EPI)AfAm 70.98 Est GFR (CKD-EPI)NonAf 61.24 Random Glucose 88 Lactic Acid 2.7 H* Calcium 9.6 Total Bilirubin 0.1 L AST 17 ALT 19 Alkaline Phosphatase 69 Creatine Kinase Troponin I Total Protein 6.9 Albumin 3.2 L Urine Color Urine Appearance Urine pH Ur Specific [place] Urine Protein Urine Glucose (UA) Urine Ketones Urine Blood Urine Nitrite Urine Bilirubin Urine Urobilinogen Ur Leukocyte Esterase Urine WBC (Auto) Urine RBC (Auto) Urine Casts (Auto) U Epithel Cells (Auto) Urine Bacteria (Auto) Influenza A (Rapid) Influenza B (Rapid) 05/21/19 05/22/19 05/22/19 23:55 01:37 01:40 WBC RBC Hgb Hct MCV MCH MCHC RDW Plt Count MPV Absolute Neuts (auto) Neutrophils % Lymphocytes % Monocytes % Eosinophils % Basophils % Nucleated RBC % PT with INR INR PTT (Actin FS) VBG pH POC VBG pCO2 POC VBG pO2 VBG HCO3 VBG O2 Sat (Mercedes) VBG Base Excess Sodium Potassium Chloride Carbon Dioxide Anion Gap BUN Creatinine Est GFR (CKD-EPI)AfAm Est GFR (CKD-EPI)NonAf Random Glucose Lactic Acid 1.8 Calcium Total Bilirubin AST ALT Alkaline Phosphatase Creatine Kinase Troponin I Total Protein Albumin Urine Color Yellow Urine Appearance Turbid Urine pH 8.5 H Ur Specific [place] 1.014 Urine Protein Negative Urine Glucose (UA) Negative Urine Ketones Negative Urine Blood 1+ H Urine Nitrite Positive H Urine Bilirubin Negative Urine Urobilinogen 0.2 Ur Leukocyte Esterase 3+ H Urine WBC (Auto) 675 Urine RBC (Auto) 9 Urine Casts (Auto) 1 U Epithel Cells (Auto) 0.3 Urine Bacteria (Auto) 2455.2 Influenza A (Rapid) Negative Influenza B (Rapid) Negative ASSESSMENT/PLAN: ATTENDING PHYSICIAN STATEMENT I saw and evaluated the patient. I reviewed the resident's note and discussed the case with the resident. I agree with the resident's findings and plan as documented. 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 As per family she has worsening of her neurological symptoms for past several days. Her LE became more stiff. She denies chest pain, SOb, nausea, vomiting, fever, urinary frequency, dysuria. patient is examined at bedside with resident staff. 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 They want only benadryl to be given Neurology consult in AM benadryl prn B12, Folic acid, TSH, cpk, mg, phos DVt ppx
[2019-05-22] MEDS: SODIUM CHLORIDE 1,000 ML IV SCH (01:29)
[2019-05-22] MEDS ORDERED: diphenhydrAMINE HCL 25 MG CAPSULE (FP) PO ONE (02:08)
[2019-05-22] MEDS: diphenhydrAMINE HCL 25 MG CAPSULE (FP) PO PRN (02:10)
[2019-05-22 06:10] VITALS: BMI 23.7
[2019-05-22] MEDS: HEPARIN NA (PORCINE) 5,000 UNITS/ML 1ML VIAL SQ SCH ×3 (06:22→22:55)
[2019-05-22] MEDS ORDERED: CEFTRIAXONE 2 GM in DEXTROSE 5%-WATER 100 ML IVPB SCH (10:00)
--- NOTE | 2019-05-22 10:05 | CONSULT ---
Consult - text type - Consultation Consultation Note: Neurology CHIEF COMPLAINT: spasticity HISTORY OF PRESENT ILLNESS: Seen in coverage for Dr. Vargas 78 yo F with a PMHx significant for a neurological disorder (uncertain diagnosis , followed by Dr. Avalos at [facility] for neurology), unknown dx if Parkinson's/LB dementia vs Ricardo Leigh, who presented with precipitous decline in mental status, tachypnea and worsened bruxism on day of admission. Patient has history of episodes where her teeth grind in the past and is on Baclofen, but normally she stops when told to by family. She also has worsened spasticity more so in the LLE than the other leg. Family at bedside, who also states that she has had worsening rigidity over the past several days prior to admission (has had rigidity in her arms and legs over the past year, possibly 2/ 2 to unknown neurological disorder). Pt not exhibiting any cp, sob, bowel/ bladder complaints, fevers, chills,increased frequency or dysuria at this time. Lactic Acid elevated at 2.7, possible UTI. In speaking with the patient, she is awake alert and conversive, tangential n conversation butis following simple commands. Unclear diagnosis as limited information available, do not have records of prior workup from [place] aand history and exam alone and not elucidating of her condition. At this time, would continue to treat symptomatically and would advise her to follow-up with neurologist that she has been seeing. PAST MEDICAL HISTORY: unknown dx if Parkinson's/LB dementia PAST SURGICAL HISTORY: rt knee replacement (2011), Lt hip fracture (2016) Social History: Smoking: denies Alcohol:denies Drugs: denies Family History: HTN Allergies Allergy/AdvReac Type Severity Reaction Status Date / Time Sulfa (Sulfonamide Allergy Unknown Verified 04/28/18 16:41 Antibiotics) sulfamethoxazole Allergy Verified 04/28/18 16:41 [From Bactrim] trimethoprim [From Bactrim] Allergy Verified 04/28/18 16:41 midazolam [From Versed] AdvReac Severe SEVERE Verified 04/28/18 16:41 MEMORY LOSS FOR SIX MONTHS AFER RECEIVING Opioids - Morphine Analogues AdvReac Verified 04/28/18 16:41 HOME MEDICATIONS: Ambulatory Orders Kirill/Vit B12/Folic Acid/Vit B6 [Folic Acid-Vit B6-Vit B12 Tab] 1 each PO DAILY L.acidoph,Paracasei, B.lactis [Probiotic] 1 each PO DAILY 11/06/17 Levocarnitine [l-Carnitine] 500 mg PO DAILY 11/06/17 Lutein [Natural Lutein] 20 mg PO DAILY 11/06/17 S-Adenosylmethionine Sul Tosyl [Edwin-E] 400 mg PO DAILY 11/06/17 Ubidecarenone [Coq-10] 200 mg PO DAILY 11/06/17 Ibuprofen [Motrin -] 200 mg PO TID #10 tablet 04/28/18 Active Medications Baclofen (Lioresal -) 10 mg PO BID [facility] Diphenhydramine HCl (Benadryl -) 25 mg PO DAILY PRN PRN Reason: AGITATION Last Admin: 05/22/19 02:10 Dose: 25 mg Heparin Sodium (Porcine) (Heparin -) 5,000 unit SQ TID [facility] Last Admin: 05/22/19 06:22 Dose: 5,000 unit Sodium Chloride (Normal Saline -) 1,000 mls @ 75 mls/hr IV ASDIR [facility] Last Admin: 05/22/19 01:29 Dose: 75 mls/hr Ceftriaxone Sodium 2 gm/ (Dextrose) 100 mls @ 100 mls/hr IVPB DAILY [facility]; Protocol REVIEW OF SYSTEMS CONSTITUTIONAL: Absent: fever, chills, diaphoresis, generalized weakness, malaise, loss of appetite, weight change HEENT: Absent: rhinorrhea, nasal congestion, throat pain, throat swelling, difficulty swallowing, mouth swelling, ear pain, eye pain, visual changes CARDIOVASCULAR: Absent: chest pain, syncope, palpitations, irregular heart rate, lightheadedness , peripheral edema RESPIRATORY: Absent: cough, shortness of breath, dyspnea with exertion, orthopnea, wheezing, stridor, hemoptysis GASTROINTESTINAL: Absent: abdominal pain, abdominal distension, nausea, vomiting, diarrhea, constipation, melena, hematochezia GENITOURINARY: Absent: dysuria, frequency, urgency, hesitancy, hematuria, flank pain, genital pain MUSCULOSKELETAL: Absent: myalgia, arthralgia, joint swelling, back pain, neck pain SKIN: Absent: rash, itching, pallor HEMATOLOGIC/IMMUNOLOGIC: Absent: easy bleeding, easy bruising, lymphadenopathy, frequent infections ENDOCRINE: Absent: unexplained weight gain, unexplained weight loss, heat intolerance, cold intolerance NEUROLOGIC: Absent: headache, focal weakness or paresthesias, dizziness, unsteady gait, seizure, mental status changes, bladder or bowel incontinence PSYCHIATRIC: Absent: anxiety, depression, suicidal or homicidal ideation, hallucinations. PHYSICAL EXAMINATION Vital Signs Period Temp Pulse Resp BP Sys/Rivera Pulse Ox Last 24 Hr 97.7 F-99.5 F 67-87 20-34 125-141/61-78 97-98 GENERAL: Awake, calm, oriented to place and self HEAD: Normal with no signs of trauma. LUNGS: Breath sounds equal, clear to auscultation bilaterally. No wheezes, and no crackles. No accessory muscle use. HEART: Regular rate and rhythm, normal S1 and S2 without murmur, rub or gallop. ABDOMEN: Soft, nontender, not distended, normoactive bowel sounds, no guarding, no rebound, no masses. No hepatomegaly or splenomegaly. LOWER EXTREMITIES: 2+ pulses, warm, well-perfused. No calf tenderness. No peripheral edema. Spastic left lower extremity unable to bend b/l LE's. NEUROLOGICAL: no aphasia, no dysarthria,tangential, cranial nerves intact, right upper extremity in flexed position, left arm mobile, adequate hospital coordinator strength, lower extremities 5-/5, sensory intact PSYCHIATRIC: calm, not agitated CBCD WBC 7.8 K/mm3 (4.0-10.0) 05/21/19 21:00 RBC 4.17 M/mm3 (3.60-5.2) 05/21/19 21:00 Hgb 12.6 GM/dL (10.7-15.3) 05/21/19 21:00 Hct 36.9 % (32.4-45.2) 05/21/19 21:00 MCV 88.4 fl (80-96) 05/21/19 21:00 MCHC 34.1 g/dl (32.0-36.0) 05/21/19 21:00 RDW 14.0 % (11.6-15.6) 05/21/19 21:00 Plt Count 403 K/MM3 (134-434) D 05/21/19 21:00 MPV 8.6 fl (7.5-11.1) 05/21/19 21:00 CMP Sodium 135 mmol/L (136-145) L 05/21/19 21:00 Potassium 4.4 mmol/L (3.5-5.1) 05/21/19 21:00 Chloride 102 mmol/L (98-107) 05/21/19 21:00 Carbon Dioxide 23 mmol/L (21-32) 05/21/19 21:00 Anion Gap 9 MMOL/L (8-16) 05/21/19 21:00 BUN 28.4 mg/dL (7-18) H 05/21/19 21:00 Creatinine 0.9 mg/dL (0.55-1.3) 05/21/19 21:00 Random Glucose 88 mg/dL (74-106) 05/21/19 21:00 Calcium 9.6 mg/dL (8.5-10.1) 05/21/19 21:00 Total Bilirubin 0.1 mg/dL (0.2-1) L 05/21/19 21:00 AST 17 U/L (15-37) 05/21/19 21:00 ALT 19 U/L (13-61) 05/21/19 21:00 Alkaline Phosphatase 69 U/L (45-117) 05/21/19 21:00 Total Protein 6.9 g/dl (6.4-8.2) 05/21/19 21:00 Albumin 3.2 g/dl (3.4-5.0) L 05/21/19 21:00 CARDIAC ENZYMES Creatine Kinase 45 U/L (26-192) 05/21/19 21:00 Troponin I < 0.02 ng/ml (0.00-0.05) 05/21/19 21:00 ASSESSMENT/PLAN: 78 yo F with a PMHx significant for a neurological disorder (uncertain diagnosis , followed by Dr. Avalos at [facility] for neurology), unknown dx if Parkinson's/LB dementia vs Creleonie Leigh, who presented with precipitous decline in mental status, tachypnea and worsened bruxism on day of admission. Patient has history of episodes where her teeth grind in the past and is on Baclofen, but normally she stops when told to by family. She also has worsened spasticity more so in the LLE than the other leg. Family at bedside, who also states that she has had worsening rigidity over the past several days prior to admission (has had rigidity in her arms and legs over the past year, possibly 2/ 2 to unknown neurological disorder). Pt not exhibiting any cp, sob, bowel/ bladder complaints, fevers, chills,increased frequency or dysuria at this time. Lactic Acid elevated at 2.7, possible UTI. In speaking with the patient, she is awake alert and conversive, tangential n conversation butis following simple commands. Unclear diagnosis as limited information available, do not have records of prior workup from [place] aand history and exam alone and not elucidating of her condition. At this time, would continue to treat symptomatically and would advise her to follow-up with neurologist that she has been seeing. Can continue baclofen as well as Benadryl. Continue ceftriaxone for urinary tract infection. Maintain adequate hydration, frequent reorientation. Will also inform Dr. Vargas of case.
[2019-05-22] MEDS ORDERED: DEXTROSE 5%-WATER 100 ML IVPB ONE (10:59)
[2019-05-22] MEDS: BACLOFEN 10 MG TABLET (FP) PO SCH ×2 (11:06→22:53)
[2019-05-22 13:49] LABS: HEMATOCRIT 32.6 % (32.4-45.2); HEMOGLOBIN 10.9 GM/dL (10.7-15.3); MCH 29.4 pg (25.7-33.7); MCHC 33.3 g/dl (32.0-36.0); MEAN CELL VOLUME 88.3 fl (80-96); MEAN PLT VOLUME 8.7 fl (7.5-11.1); PLATELET COUNT 359 K/MM3 (134-434); RBC 3.69 M/mm3 (3.60-5.2); RDW 14.2 % (11.6-15.6); WHITE BLOOD COUNT 6.5 K/mm3 (4.0-10.0)
--- NOTE | 2019-05-22 13:55 | PN ---
Physical Exam: SUBJECTIVE: Patient seen and examined. She is confused. She says she is afraid because her family left her. She appears comfortable. OBJECTIVE: Vital Signs Period Temp Pulse Resp BP Sys/Rivera Pulse Ox Last 24 Hr 97.6 F-99.5 F 67-87 20-34 125-141/61-78 97-100 GENERAL: The patient is awake, alert, and confused, in no acute distress. LUNGS: Breath sounds equal, clear to auscultation bilaterally, no wheezes, no crackles, no accessory muscle use. HEART: Regular rate and rhythm, S1, S2 without murmur, rub or gallop. ABDOMEN: Soft, nontender, nondistended, normoactive bowel sounds, no guarding, no rebound, no hepatosplenomegaly, no masses. EXTREMITIES: 2+ pulses, warm, well-perfused, no edema. Laboratory Results - last 24 hr 05/21/19 05/21/19 05/21/19 21:00 21:00 21:00 WBC 7.8 RBC 4.17 Hgb 12.6 Hct 36.9 MCV 88.4 MCH 30.1 MCHC 34.1 RDW 14.0 Plt Count 403 D MPV 8.6 Absolute Neuts (auto) 4.2 Neutrophils % 54.6 Lymphocytes % 30.2 Monocytes % 10.2 Eosinophils % 3.7 Basophils % 1.3 Nucleated RBC % 0 PT with INR 10.20 INR 0.87 PTT (Actin FS) 31.4 VBG pH POC VBG pCO2 POC VBG pO2 VBG HCO3 VBG O2 Sat (Mercedes) VBG Base Excess Sodium Potassium Chloride Carbon Dioxide Anion Gap BUN Creatinine Est GFR (CKD-EPI)AfAm Est GFR (CKD-EPI)NonAf Random Glucose Lactic Acid Calcium Total Bilirubin AST ALT Alkaline Phosphatase Creatine Kinase 45 Troponin I < 0.02 Total Protein Albumin Urine Color Urine Appearance Urine pH Ur Specific Edison Urine Protein Urine Glucose (UA) Urine Ketones Urine Blood Urine Nitrite Urine Bilirubin Urine Urobilinogen Ur Leukocyte Esterase Urine WBC (Auto) Urine RBC (Auto) Urine Casts (Auto) U Epithel Cells (Auto) Urine Bacteria (Auto) Influenza A (Rapid) Influenza B (Rapid) 05/21/19 05/21/19 05/21/19 21:00 21:00 21:00 WBC RBC Hgb Hct MCV MCH MCHC RDW Plt Count MPV Absolute Neuts (auto) Neutrophils % Lymphocytes % Monocytes % Eosinophils % Basophils % Nucleated RBC % PT with INR INR PTT (Actin FS) VBG pH 7.59 H POC VBG pCO2 26.9 L POC VBG pO2 < 49 H VBG HCO3 25.6 VBG O2 Sat (Mercedes) 67.6 L VBG Base Excess 4.5 H Sodium 135 L Potassium 4.4 Chloride 102 Carbon Dioxide 23 Anion Gap 9 BUN 28.4 H Creatinine 0.9 Est GFR (CKD-EPI)AfAm 70.98 Est GFR (CKD-EPI)NonAf 61.24 Random Glucose 88 Lactic Acid 2.7 H* Calcium 9.6 Total Bilirubin 0.1 L AST 17 ALT 19 Alkaline Phosphatase 69 Creatine Kinase Troponin I Total Protein 6.9 Albumin 3.2 L Urine Color Urine Appearance Urine pH Ur Specific Edison Urine Protein Urine Glucose (UA) Urine Ketones Urine Blood Urine Nitrite Urine Bilirubin Urine Urobilinogen Ur Leukocyte Esterase Urine WBC (Auto) Urine RBC (Auto) Urine Casts (Auto) U Epithel Cells (Auto) Urine Bacteria (Auto) Influenza A (Rapid) Influenza B (Rapid) 05/21/19 05/22/19 05/22/19 23:55 01:37 01:40 WBC RBC Hgb Hct MCV MCH MCHC RDW Plt Count MPV Absolute Neuts (auto) Neutrophils % Lymphocytes % Monocytes % Eosinophils % Basophils % Nucleated RBC % PT with INR INR PTT (Actin FS) VBG pH POC VBG pCO2 POC VBG pO2 VBG HCO3 VBG O2 Sat (Mercedes) VBG Base Excess Sodium Potassium Chloride Carbon Dioxide Anion Gap BUN Creatinine Est GFR (CKD-EPI)AfAm Est GFR (CKD-EPI)NonAf Random Glucose Lactic Acid 1.8 Calcium Total Bilirubin AST ALT Alkaline Phosphatase Creatine Kinase Troponin I Total Protein Albumin Urine Color Yellow Urine Appearance Turbid Urine pH 8.5 H Ur Specific Edison 1.014 Urine Protein Negative Urine Glucose (UA) Negative Urine Ketones Negative Urine Blood 1+ H Urine Nitrite Positive H Urine Bilirubin Negative Urine Urobilinogen 0.2 Ur Leukocyte Esterase 3+ H Urine WBC (Auto) 675 Urine RBC (Auto) 9 Urine Casts (Auto) 1 U Epithel Cells (Auto) 0.3 Urine Bacteria (Auto) 2455.2 Influenza A (Rapid) Negative Influenza B (Rapid) Negative Active Medications Generic Name Dose Route Start Last Admin Trade Name Freq PRN Reason Stop Dose Admin Baclofen 10 mg 05/22/19 10:00 05/22/19 11:06 Lioresal - PO 10 mg BID [facility] Administration Diphenhydramine HCl 25 mg 05/22/19 00:29 05/22/19 02:10 Benadryl - PO 25 mg DAILY PRN Administration AGITATION Heparin Sodium (Porcine) 5,000 unit 05/22/19 06:00 05/22/19 06:22 Heparin - SQ 5,000 unit TID [facility] Administration Sodium Chloride 1,000 mls @ 75 mls/hr 05/22/19 00:30 05/22/19 01:29 Normal Saline - IV 75 mls/hr ASDIR [facility] Administration Ceftriaxone Sodium 2 gm/ 100 mls @ 100 mls/hr 05/22/19 10:00 05/22/19 11:01 Dextrose IVPB 100 mls/hr DAILY [facility] Administration Protocol ASSESSMENT/PLAN: This is a 78 year old woman with a history of an undiagnosed neurological disorder who presented to the ED with declining mental status, tachypnea, teeth grinding. 1. Acute metabolic encephalopathy secondary to UTI - Continue ceftriaxone - Urine, blood cultures pending 2. Lactic acidosis - Improved 3. Neurological disorder with cognitive decline, spasticity, bruxism - Obtain prior neurology records - Continue Baclofen - TSH, B12, folate pending Visit type - Emergency Visit Emergency Visit: Yes ED Registration Date: 05/21/19 Care time: The patient presented to the Emergency Department on the above date and was hospitalized for further evaluation of their emergent condition. - New Patient This patient is new to me today: Yes Date on this admission: 05/22/19 - Critical Care Critical Care patient: No - Discharge Referral Referred to [facility] Med P.C.: No
[2019-05-22 14:30] LABS: ALBUMIN 2.9 g/dl (3.4-5.0); BILIRUBIN,TOTAL 0.2 mg/dL (0.2-1); BLOOD UREA NITROGEN 16.4 mg/dL (7-18); CALCIUM 9.1 mg/dL (8.5-10.1); CREATININE 0.6 mg/dL (0.55-1.3); MAGNESIUM 2.1 mg/dL (1.8-2.4); POTASSIUM 4.1 mmol/L (3.5-5.1); TOT PROT 6.3 g/dl (6.4-8.2)
[2019-05-23] MEDS: HEPARIN NA (PORCINE) 5,000 UNITS/ML 1ML VIAL SQ SCH ×3 (07:04→22:09)
[2019-05-23] MEDS: SODIUM CHLORIDE 1,000 ML IV SCH ×2 (07:04→22:45)
[2019-05-23] MEDS ORDERED: DEXTROSE 5%-WATER - 50 ML IVPB ONE (09:38)
[2019-05-23] MEDS ORDERED: cefTRIAXone SODIUM 1 GM VIAL ONE (09:38)
--- NOTE | 2019-05-23 10:17 | EKG ---
Test Reason : Blood Pressure : / mmHG Vent. Rate : 069 BPM Atrial Rate : 267 BPM P-R Int : 000 ms QRS Dur : 076 ms QT Int : 394 ms P-R-T Axes : 050 -26 231 degrees QTc Int : 422 ms Poor data quality , motion artifact Likely sinus rhythm ABNORMAL ECG WHEN COMPARED WITH ECG OF 05-MAY-2018 08:43, Repeat ECG Confirmed by Giancarlo Tran ([id number]) on 05/23/2019 10:17:07 AM Referred By: Confirmed By:Giancarlo Tran
[2019-05-23] MEDS: BACLOFEN 10 MG TABLET (FP) PO SCH ×2 (10:20→22:10)
[2019-05-23] MEDS: CEFTRIAXONE 1 GM in DEXTROSE 5%-WATER - 50 ML IVPB SCH (10:20)
--- NOTE | 2019-05-23 10:56 | PN ---
Progress Note (short form) - Note Progress Note: Neurology CHIEF COMPLAINT: spasticity HISTORY OF PRESENT ILLNESS: Seen in coverage for Dr. Vargas 78 yo F with a PMHx significant for a neurological disorder (uncertain diagnosis , followed by Dr. Avalos at [facility] for neurology), unknown dx if Parkinson's/LB dementia vs Ricardo Leigh, who presented with precipitous decline in mental status, tachypnea and worsened bruxism on day of admission. Patient has history of episodes where her teeth grind in the past and is on Baclofen, but normally she stops when told to by family. She also has worsened spasticity more so in the LLE than the other leg. Family at bedside, who also states that she has had worsening rigidity over the past several days prior to admission (has had rigidity in her arms and legs over the past year, possibly 2/ 2 to unknown neurological disorder). Pt not exhibiting any cp, sob, bowel/ bladder complaints, fevers, chills,increased frequency or dysuria at this time. Lactic Acid elevated at 2.7, possible UTI. In speaking with the patient, she is awake alert and conversive, tangential conversation but is following simple commands. Unclear diagnosis as limited information available, do not have records of prior workup from [place] and history and exam alone and not elucidating of her condition. At this time, would continue to treat symptomatically and would advise her to follow-up with neurologist that she has been seeing. Remains on baclofen as well as Benadryl, not sedated or demonstrating significant side effects from these medications but clearly has cognitive impairment. Active Medications Baclofen (Lioresal -) 10 mg PO BID [facility] Last Admin: 05/23/19 10:20 Dose: 10 mg Diphenhydramine HCl (Benadryl -) 25 mg PO DAILY PRN PRN Reason: AGITATION Last Admin: 05/22/19 02:10 Dose: 25 mg Heparin Sodium (Porcine) (Heparin -) 5,000 unit SQ TID [facility] Last Admin: 05/23/19 07:04 Dose: 5,000 unit Sodium Chloride (Normal Saline -) 1,000 mls @ 75 mls/hr IV ASDIR [facility] Last Admin: 05/23/19 07:04 Dose: 75 mls/hr Ceftriaxone Sodium 1 gm/ (Dextrose) 50 mls @ 200 mls/hr IVPB DAILY [facility]; Protocol Last Admin: 05/23/19 10:20 Dose: 200 mls/hr PHYSICAL EXAMINATION Vital Signs Period Temp Pulse Resp BP Sys/Rivera Pulse Ox Last 24 Hr 97.3 F-98.7 F 57-79 20-20 103-133/57-86 96 GENERAL: Awake, calm, oriented to place and self HEAD: Normal with no signs of trauma. LUNGS: Breath sounds equal, clear to auscultation bilaterally. No wheezes, and no crackles. No accessory muscle use. HEART: Regular rate and rhythm, normal S1 and S2 without murmur, rub or gallop. ABDOMEN: Soft, nontender, not distended, normoactive bowel sounds, no guarding, no rebound, no masses. No hepatomegaly or splenomegaly. LOWER EXTREMITIES: 2+ pulses, warm, well-perfused. No calf tenderness. No peripheral edema. Spastic left lower extremity unable to bend b/l LE's. NEUROLOGICAL: no aphasia, no dysarthria,tangential, cranial nerves intact, right upper extremity in flexed position, left arm mobile, adequate inclusion special educator strength, lower extremities 5-/5, sensory intact PSYCHIATRIC: calm, not agitated CBCD WBC 6.5 K/mm3 (4.0-10.0) 05/22/19 13:18 RBC 3.69 M/mm3 (3.60-5.2) 05/22/19 13:18 Hgb 10.9 GM/dL (10.7-15.3) 05/22/19 13:18 Hct 32.6 % (32.4-45.2) 05/22/19 13:18 MCV 88.3 fl (80-96) 05/22/19 13:18 MCHC 33.3 g/dl (32.0-36.0) 05/22/19 13:18 RDW 14.2 % (11.6-15.6) 05/22/19 13:18 Plt Count 359 K/MM3 (134-434) 05/22/19 13:18 MPV 8.7 fl (7.5-11.1) 05/22/19 13:18 CMP Sodium 140 mmol/L (136-145) 05/22/19 13:18 Potassium 4.1 mmol/L (3.5-5.1) 05/22/19 13:18 Chloride 110 mmol/L (98-107) H 05/22/19 13:18 Carbon Dioxide 22 mmol/L (21-32) 05/22/19 13:18 Anion Gap 8 MMOL/L (8-16) 05/22/19 13:18 BUN 16.4 mg/dL (7-18) 05/22/19 13:18 Creatinine 0.6 mg/dL (0.55-1.3) 05/22/19 13:18 Random Glucose 105 mg/dL (74-106) 05/22/19 13:18 Calcium 9.1 mg/dL (8.5-10.1) 05/22/19 13:18 Total Bilirubin 0.2 mg/dL (0.2-1) 05/22/19 13:18 AST 15 U/L (15-37) 05/22/19 13:18 ALT 15 U/L (13-61) 05/22/19 13:18 Alkaline Phosphatase 57 U/L (45-117) 05/22/19 13:18 Total Protein 6.3 g/dl (6.4-8.2) L 05/22/19 13:18 Albumin 2.9 g/dl (3.4-5.0) L 05/22/19 13:18 CARDIAC ENZYMES Creatine Kinase 63 U/L (26-192) 05/22/19 13:18 Troponin I < 0.02 ng/ml (0.00-0.05) 05/21/19 21:00 ASSESSMENT/PLAN: 78 yo F with a PMHx significant for a neurological disorder (uncertain diagnosis , followed by Dr. Avalos at [facility] for neurology), unknown dx if Parkinson's/LB dementia vs [place] Leigh, who presented with precipitous decline in mental status, tachypnea and worsened bruxism on day of admission. Patient has history of episodes where her teeth grind in the past and is on Baclofen, but normally she stops when told to by family. She also has worsened spasticity more so in the LLE than the other leg. Family at bedside, who also states that she has had worsening rigidity over the past several days prior to admission (has had rigidity in her arms and legs over the past year, possibly 2/ 2 to unknown neurological disorder). Pt not exhibiting any cp, sob, bowel/ bladder complaints, fevers, chills,increased frequency or dysuria at this time. Lactic Acid elevated at 2.7, possible UTI. In speaking with the patient, she is awake alert and conversive, tangential n conversation butis following simple commands. Unclear diagnosis as limited information available, do not have records of prior workup from [place] aand history and exam alone and not elucidating of her condition. At this time, would continue to treat symptomatically and would advise her to follow-up with neurologist that she has been seeing. Can continue baclofen as well as Benadryl. Continue ceftriaxone for urinary tract infection. Remains on baclofen as well as Benadryl, not sedated or demonstrating significant side effects from these medications but clearly has cognitive impairment. Maintain adequate hydration, frequent reorientation. Will also inform Dr. Vargas of case.
--- NOTE | 2019-05-23 12:10 | PN ---
Physical Exam: SUBJECTIVE: Patient seen and examined. She has no complaints. OBJECTIVE: Vital Signs Period Temp Pulse Resp BP Sys/Rivera Pulse Ox Last 24 Hr 97.3 F-98.7 F 57-79 20-20 103-133/57-86 96 GENERAL: The patient is awake, alert, and confused, in no acute distress. LUNGS: Breath sounds equal, clear to auscultation bilaterally, no wheezes, no crackles, no accessory muscle use. HEART: Regular rate and rhythm, S1, S2 without murmur, rub or gallop. ABDOMEN: Soft, nontender, nondistended, normoactive bowel sounds, no guarding, no rebound, no hepatosplenomegaly, no masses. EXTREMITIES: 2+ pulses, warm, well-perfused, no edema. Laboratory Results - last 24 hr 05/22/19 05/22/19 05/22/19 13:18 13:18 13:18 WBC 6.5 RBC 3.69 Hgb 10.9 Hct 32.6 MCV 88.3 MCH 29.4 MCHC 33.3 RDW 14.2 Plt Count 359 MPV 8.7 D-Dimer 2325 H Sodium 140 Potassium 4.1 Chloride 110 H Carbon Dioxide 22 Anion Gap 8 BUN 16.4 Creatinine 0.6 Est GFR (CKD-EPI)AfAm 101.18 Est GFR (CKD-EPI)NonAf 87.30 Random Glucose 105 Calcium 9.1 Phosphorus 4.0 Magnesium 2.1 Total Bilirubin 0.2 AST 15 ALT 15 Alkaline Phosphatase 57 Creatine Kinase Total Protein 6.3 L Albumin 2.9 L Vitamin B12 Serum Folate TSH 1.64 05/22/19 13:18 WBC RBC Hgb Hct MCV MCH MCHC RDW Plt Count MPV D-Dimer Sodium Potassium Chloride Carbon Dioxide Anion Gap BUN Creatinine Est GFR (CKD-EPI)AfAm Est GFR (CKD-EPI)NonAf Random Glucose Calcium Phosphorus Magnesium Total Bilirubin AST ALT Alkaline Phosphatase Creatine Kinase 63 Total Protein Albumin Vitamin B12 379 Serum Folate 10 TSH Active Medications Generic Name Dose Route Start Last Admin Trade Name Freq PRN Reason Stop Dose Admin Baclofen 10 mg 05/22/19 10:00 05/23/19 10:20 Lioresal - PO 10 mg BID [facility] Administration Diphenhydramine HCl 25 mg 05/22/19 00:29 05/22/19 02:10 Benadryl - PO 25 mg DAILY PRN Administration AGITATION Heparin Sodium (Porcine) 5,000 unit 05/22/19 06:00 05/23/19 07:04 Heparin - SQ 5,000 unit TID [facility] Administration Sodium Chloride 1,000 mls @ 75 mls/hr 05/22/19 00:30 05/23/19 07:04 Normal Saline - IV 75 mls/hr ASDIR [facility] Administration Ceftriaxone Sodium 1 gm/ 50 mls @ 200 mls/hr 05/23/19 10:00 05/23/19 10:20 Dextrose IVPB 200 mls/hr DAILY [facility] Administration Protocol ASSESSMENT/PLAN: This is a 78 year old woman with a history of an undiagnosed neurological disorder who presented to the ED with declining mental status, tachypnea, teeth grinding. 1. Acute metabolic encephalopathy secondary to UTI - Continue ceftriaxone - Urine culture growing gram neg rods - Blood cultures negative after 24 hours 2. Lactic acidosis - Improved 3. Neurological disorder with cognitive decline, spasticity, bruxism - Obtain prior neurology records - Continue Baclofen - TSH, B12, folate normal Visit type - Emergency Visit Emergency Visit: Yes ED Registration Date: 05/21/19 Care time: The patient presented to the Emergency Department on the above date and was hospitalized for further evaluation of their emergent condition. - New Patient This patient is new to me today: No - Critical Care Critical Care patient: No - Discharge Referral Referred to [facility] Med P.C.: No
[2019-05-24] MEDS: SODIUM CHLORIDE 1,000 ML IV SCH ×2 (06:55→11:45)
[2019-05-24] MEDS: HEPARIN NA (PORCINE) 5,000 UNITS/ML 1ML VIAL SQ SCH ×3 (06:55→22:09)
[2019-05-24 09:23] LABS: HEMATOCRIT 31.4 % (32.4-45.2); HEMOGLOBIN 10.6 GM/dL (10.7-15.3); MCH 29.9 pg (25.7-33.7); MCHC 33.6 g/dl (32.0-36.0); MEAN PLT VOLUME 8.9 fl (7.5-11.1); PLATELET COUNT 306 K/MM3 (134-434); RBC 3.53 M/mm3 (3.60-5.2); RDW 14.1 % (11.6-15.6); WHITE BLOOD COUNT 6.7 K/mm3 (4.0-10.0)
--- NOTE | 2019-05-24 09:35 | PN ---
Physical Exam: SUBJECTIVE: Patient seen and examined at bedside. pt is stating that she has some pain but is very vague and unable to explain where OBJECTIVE: Vital Signs Period Temp Pulse Resp BP Sys/Rivera Pulse Ox Last 24 Hr 97.3 F-98.7 F 62-66 20-20 101-154/48-86 97 GENERAL: The patient is awake, alert, and fully oriented, in no acute distress. + bruxism HEAD: Normal with no signs of trauma. ENT: moist mucous membranes. LUNGS: Breath sounds equal, no wheezes, no crackles, no accessory muscle use. HEART: Regular rate and rhythm, S1, S2 without murmur, rub or gallop. ABDOMEN: Soft, TTP RUQ RLQ suprapubic; nondistended, normoactive bowel sounds EXTREMITIES: 2+ pulses, warm, well-perfused, no edema. SKIN: Warm, dry, normal turgor, no rashes or lesions noted Active Medications Current Medications Baclofen (Lioresal -) 10 mg PO BID [facility] Last Admin: 05/23/19 22:10 Dose: 10 mg Diphenhydramine HCl (Benadryl -) 25 mg PO DAILY PRN PRN Reason: AGITATION Last Admin: 05/22/19 02:10 Dose: 25 mg Heparin Sodium (Porcine) (Heparin -) 5,000 unit SQ TID [facility] Last Admin: 05/24/19 06:55 Dose: 5,000 unit Sodium Chloride (Normal Saline -) 1,000 mls @ 75 mls/hr IV ASDIR [facility] Last Admin: 05/24/19 06:55 Dose: Not Given Ceftriaxone Sodium 1 gm/ (Dextrose) 50 mls @ 200 mls/hr IVPB DAILY [facility]; Protocol Last Admin: 05/23/19 10:20 Dose: 200 mls/hr ASSESSMENT/PLAN: 78 yo F PMH of Parkinson's presented to the ED for worsening mental status and bruxism. Pt is admitted for acute toxic metabolic encephalopathy 2/2 UTI Acute Toxic metabolic encephalopathy 2/2 UTI - c/w ceftriaxone day 2 - UCx: enterobacter, sensitivities reviewed. mike sensitive -BCx Neg to date - psych consulted, no intervention necessary' - neuro consulted Lactic Acidosis -improved Parkinsons vs Ricardo Leigh - pending neuro records - c/w baclofen -TSH, B12 , folate wnl -contacted outpt Neurologist : Dr. Avalos; stated that working DDx is Creutzfeld vs Parkinson's. Pt was not tested for Creutzfeld and has not been seen since 01/2019. pending fax report of records Visit type - Emergency Visit Emergency Visit: No - New Patient This patient is new to me today: Yes Date on this admission: 05/24/19 - Critical Care Critical Care patient: No - Discharge Referral Referred to [facility] Med P.C.: No ATTENDING PHYSICIAN STATEMENT I saw and evaluated the patient. I reviewed the resident's note and discussed the case with the resident. I agree with the resident's findings and plan as documented. SUBJECTIVE: OBJECTIVE: ASSESSMENT AND PLAN:
[2019-05-24] MEDS ORDERED: cefTRIAXone SODIUM 1 GM VIAL ONE (09:46)
[2019-05-24] MEDS ORDERED: DEXTROSE 5%-WATER - 50 ML IVPB ONE (09:47)
[2019-05-24] MEDS: CEFTRIAXONE 1 GM in DEXTROSE 5%-WATER - 50 ML IVPB SCH (09:50)
[2019-05-24] MEDS: BACLOFEN 10 MG TABLET (FP) PO SCH ×2 (09:50→22:08)
[2019-05-24 09:56] LABS: BLOOD UREA NITROGEN 10.9 mg/dL (7-18); CALCIUM 8.9 mg/dL (8.5-10.1); CREATININE 0.5 mg/dL (0.55-1.3); MAGNESIUM 1.9 mg/dL (1.8-2.4); PHOSPHOROUS 3.3 mg/dL (2.5-4.9); POTASSIUM 3.9 mmol/L (3.5-5.1)
--- NOTE | 2019-05-24 10:12 | CON.PSY ---
Psychiatry Consult Chief Complaint: 78 Year old female with Parkinsons disese and other severe spasms seen for Psych meds. She appatanrly bneen ojn Psycvh meds at a N home. No reports of her meds. Patient is notv disp0l;aying any acute agitation or Psychosis or self damaging behaviours. Has severe spasms all over her body along with cognitive impairment. - Previous Psychiatric Treatment Outpatient: None Inpatient: None - Previous Substance Abuse Treatment Outpatient: None Inpatient: None - Current Medications Current Medications: Active Medications Baclofen (Lioresal -) 10 mg PO BID [facility] Last Admin: 05/24/19 09:50 Dose: 10 mg Diphenhydramine HCl (Benadryl -) 25 mg PO DAILY PRN PRN Reason: AGITATION Last Admin: 05/22/19 02:10 Dose: 25 mg Heparin Sodium (Porcine) (Heparin -) 5,000 unit SQ TID [facility] Last Admin: 05/24/19 06:55 Dose: 5,000 unit Sodium Chloride (Normal Saline -) 1,000 mls @ 75 mls/hr IV ASDIR [facility] Last Admin: 05/24/19 06:55 Dose: Not Given Ceftriaxone Sodium 1 gm/ (Dextrose) 50 mls @ 200 mls/hr IVPB DAILY [facility]; Protocol Last Admin: 05/24/19 09:50 Dose: 200 mls/hr - Allergies Allergies: Allergies Allergy/AdvReac Type Severity Reaction Status Date / Time Sulfa (Sulfonamide Allergy Unknown Verified 04/28/18 16:41 Antibiotics) sulfamethoxazole Allergy Verified 04/28/18 16:41 [From Bactrim] trimethoprim [From Bactrim] Allergy Verified 04/28/18 16:41 midazolam [From Versed] AdvReac Severe SEVERE Verified 04/28/18 16:41 MEMORY LOSS FOR SIX MONTHS AFER RECEIVING Opioids - Morphine Analogues AdvReac Verified 04/28/18 16:41 - Current Living Status Usual Living Arrangement: With Child - Current Mental Status Evaluation Appearance: Well Groomed Attitude: Cooperative - Affect Affect: Constrictive Appropriateness: Not Appropriate - Mood Mood: Euthymic - Speech/Language Expressive: Delayed - Psychomotor Activity Psychomotor Activity: Hyperactive - Thought Process Thought Process: Circumstantial - Thought Content Hallucinations: Absent Delusions: Absent - Self Perception Self Perception: No Impairment - Cognition Attention: Alert, Diminished Orientation: Time Memory, Immediate Recall: Impaired Memory, Short Term: 1/3 Memory, Remote with Promptin/3 - Concentration Serial Sevens Intact: No Simple Calculations Intact: No - Abstraction Proverb Interpretation: Impaired Judgement: Intact - Insight Insight: Impaired - Impulse Control Impulse Control: Good Control - Suicidal Ideation Suicidal Ideation: No - Homicidal Ideation Homicidal Ideation: No Assessment/Plan 1) No Psych meds needed at this time.
[2019-05-24] MEDS ORDERED: PT OWN MED DRAWER 7, Y5N ONE (11:31)
--- NOTE | 2019-05-24 16:16 | PN ---
Teaching Attending Note Name of Resident: Joy Arnold ATTENDING PHYSICIAN STATEMENT I saw and evaluated the patient. I reviewed the resident's note and discussed the case with the resident. I agree with the resident's findings and plan as documented. SUBJECTIVE: Patient awake and alert. She is keeping her hands clenched and is grinding teeth. OBJECTIVE: Vital Signs Period Temp Pulse Resp BP Sys/Rivera Pulse Ox Last 24 Hr 97.3 F-98.7 F 62-64 20-20 105-154/48-86 95-97 GENERAL: The patient is awake, alert, and confused, in no acute distress. LUNGS: Breath sounds equal, clear to auscultation bilaterally, no wheezes, no crackles, no accessory muscle use. HEART: Regular rate and rhythm, S1, S2 without murmur, rub or gallop. ABDOMEN: Soft, nontender, nondistended, normoactive bowel sounds, no guarding, no rebound, no hepatosplenomegaly, no masses. EXTREMITIES: 2+ pulses, warm, well-perfused, no edema. Laboratory Results - last 24 hr 05/24/19 05/24/19 08:17 08:17 WBC 6.7 RBC 3.53 L Hgb 10.6 L Hct 31.4 L MCV 89.0 MCH 29.9 MCHC 33.6 RDW 14.1 Plt Count 306 MPV 8.9 Sodium 140 Potassium 3.9 Chloride 111 H Carbon Dioxide 22 Anion Gap 7 L BUN 10.9 Creatinine 0.5 L Est GFR (CKD-EPI)AfAm 107.44 Est GFR (CKD-EPI)NonAf 92.70 Random Glucose 87 Calcium 8.9 Phosphorus 3.3 Magnesium 1.9 Current Medications Generic Name Dose Route Start Last Admin Trade Name Freq PRN Reason Stop Dose Admin Baclofen 10 mg 05/22/19 10:00 05/24/19 09:50 Lioresal - PO 10 mg BID [facility] Administration Diphenhydramine HCl 25 mg 05/22/19 00:29 05/22/19 02:10 Benadryl - PO 25 mg DAILY PRN Administration AGITATION Heparin Sodium (Porcine) 5,000 unit 05/22/19 06:00 05/24/19 06:55 Heparin - SQ 5,000 unit TID [facility] Administration Sodium Chloride 1,000 mls @ 75 mls/hr 05/22/19 00:30 05/24/19 11:45 Normal Saline - IV 75 mls/hr ASDIR [facility] Administration Ceftriaxone Sodium 1 gm/ 50 mls @ 200 mls/hr 05/23/19 10:00 05/24/19 09:50 Dextrose IVPB 200 mls/hr DAILY [facility] Administration Protocol ASSESSMENT AND PLAN: This is a 78 year old woman with a history of an undiagnosed neurological disorder who presented to the ED with declining mental status, tachypnea, teeth grinding. 1. Acute metabolic encephalopathy secondary to UTI - Continue ceftriaxone (day 3) - Urine culture growing Enterobacter aerogenes sensitive to ceftriaxone - Blood cultures negative 2. Lactic acidosis - Improved 3. Neurological disorder with cognitive decline, spasticity, bruxism - Obtain prior neurology records - Continue Baclofen - TSH, B12, folate normal 4. Disposition - Discharge planning for possible return home
[2019-05-25] MEDS: SODIUM CHLORIDE 1,000 ML IV SCH ×2 (01:14→09:29)
[2019-05-25] MEDS: HEPARIN NA (PORCINE) 5,000 UNITS/ML 1ML VIAL SQ SCH ×3 (06:31→23:13)
[2019-05-25 08:56] LABS: HEMATOCRIT 30.2 % (32.4-45.2); HEMOGLOBIN 10.2 GM/dL (10.7-15.3); MCH 29.9 pg (25.7-33.7); MCHC 33.8 g/dl (32.0-36.0); MEAN CELL VOLUME 88.7 fl (80-96); MEAN PLT VOLUME 9.2 fl (7.5-11.1); PLATELET COUNT 303 K/MM3 (134-434); RBC 3.41 M/mm3 (3.60-5.2); RDW 14.2 % (11.6-15.6); WHITE BLOOD COUNT 6.5 K/mm3 (4.0-10.0)
[2019-05-25 09:10] LABS: BLOOD UREA NITROGEN 8.2 mg/dL (7-18); CALCIUM 8.6 mg/dL (8.5-10.1); CREATININE 0.4 mg/dL (0.55-1.3); MAGNESIUM 1.9 mg/dL (1.8-2.4); PHOSPHOROUS 3.2 mg/dL (2.5-4.9); POTASSIUM 3.6 mmol/L (3.5-5.1)
[2019-05-25] MEDS ORDERED: DEXTROSE 5%-WATER - 50 ML IVPB ONE (09:27)
[2019-05-25] MEDS ORDERED: cefTRIAXone SODIUM 1 GM VIAL ONE (09:27)
[2019-05-25] MEDS: BACLOFEN 10 MG TABLET (FP) PO SCH ×2 (09:29→23:12)
[2019-05-25] MEDS: CEFTRIAXONE 1 GM in DEXTROSE 5%-WATER - 50 ML IVPB SCH (09:30)
--- NOTE | 2019-05-25 17:55 | PN ---
Physical Exam: SUBJECTIVE: Patient seen and examined at bedside. pt is more coherent today. she states she has pain but she is unable to specify. she is able to stop grinding teeth and movements when prompted. OBJECTIVE: Vital Signs Period Temp Pulse Resp BP Sys/Rivera Pulse Ox Last 24 Hr 97.7 F-99.7 F 68-82 20-20 100-141/53-79 95 GENERAL: The patient is awake, alert, in no acute distress. pt is spastic. she has facial twitches. +bruxism- improved from yesterday HEAD: Normal with no signs of trauma. EYES: PERRL, extraocular movements intact LUNGS: Breath sounds equal, no wheezes, no crackles, no accessory muscle use. HEART: Regular rate and rhythm, S1, S2 ABDOMEN: Soft, nontender, mildly TTP of Upper abdomen and suprapubic, normoactive bowel sounds EXTREMITIES: 2+ pulses, warm, well-perfused, no edema. SKIN: Warm, dry, normal turgor, no rashes or lesions noted Laboratory Results - last 24 hr 05/25/19 05/25/19 08:00 08:00 WBC 6.5 RBC 3.41 L Hgb 10.2 L Hct 30.2 L MCV 88.7 MCH 29.9 MCHC 33.8 RDW 14.2 Plt Count 303 MPV 9.2 Sodium 140 Potassium 3.6 Chloride 110 H Carbon Dioxide 25 Anion Gap 5 L BUN 8.2 Creatinine 0.4 L Est GFR (CKD-EPI)AfAm 115.62 Est GFR (CKD-EPI)NonAf 99.76 Random Glucose 87 Calcium 8.6 Phosphorus 3.2 Magnesium 1.9 Microbiology 05/21/19 21:00 Blood - Peripheral Venous Blood Culture - Preliminary NO GROWTH OBTAINED AFTER 72 HOURS, INCUBATION TO CONTINUE FOR 2 DAYS. 05/21/19 21:00 Blood - Peripheral Venous Blood Culture - Preliminary NO GROWTH OBTAINED AFTER 72 HOURS, INCUBATION TO CONTINUE FOR 2 DAYS. 05/21/19 23:55 Urine - Urine - Catheterized Urine Culture - Final Enterobacter Aerogenes Current Medications Baclofen (Lioresal -) 10 mg PO BID [facility] Last Admin: 05/25/19 09:29 Dose: 10 mg Diphenhydramine HCl (Benadryl -) 25 mg PO DAILY PRN PRN Reason: AGITATION Last Admin: 05/22/19 02:10 Dose: 25 mg Heparin Sodium (Porcine) (Heparin -) 5,000 unit SQ TID [facility] Last Admin: 05/25/19 15:36 Dose: 5,000 unit Sodium Chloride (Normal Saline -) 1,000 mls @ 75 mls/hr IV ASDIR [facility] Last Admin: 05/25/19 09:29 Dose: 75 mls/hr Ceftriaxone Sodium 1 gm/ (Dextrose) 50 mls @ 200 mls/hr IVPB DAILY [facility]; Protocol Last Admin: 05/25/19 09:30 Dose: 200 mls/hr ASSESSMENT/PLAN: 78 yo F PMH of Parkinson's presented to the ED for worsening mental status and bruxism. Pt is admitted for acute toxic metabolic encephalopathy 2/2 UTI Acute Toxic metabolic encephalopathy 2/2 UTI - c/w ceftriaxone day 3 - UCx: enterobacter, sensitivities reviewed. mike sensitive -BCx Neg to date - psych consulted, no intervention necessary' - neuro consulted Lactic Acidosis -improved Parkinsons vs Creutzfeld Leigh - pending neuro records - c/w baclofen -TSH, B12 , folate wnl -contacted outpt Neurologist : Dr. Avalos; stated that working DDx is Creutzfeld vs Parkinson's. Pt was not tested for Creutzfeld and has not been seen since 01/2019. records obtained and reviewed, pt does not have any confirmatory tests for Creutzfeld, although outpt neurologist suggests thats the most likely Dx DVT ppx: Heparin Dispo: - contacted pt's son, pt has been immobile since last november. pt has 27/10 home health aid. - possible DC tomorrow Visit type - Emergency Visit Emergency Visit: No - New Patient This patient is new to me today: No - Critical Care Critical Care patient: No - Discharge Referral Referred to [facility] Med P.C.: No ATTENDING PHYSICIAN STATEMENT I saw and evaluated the patient. I reviewed the resident's note and discussed the case with the resident. I agree with the resident's findings and plan as documented. SUBJECTIVE: OBJECTIVE: ASSESSMENT AND PLAN:
--- NOTE | 2019-05-25 18:38 | PN ---
Teaching Attending Note Name of Resident: Joy Arnold ATTENDING PHYSICIAN STATEMENT I saw and evaluated the patient. I reviewed the resident's note and discussed the case with the resident. I agree with the resident's findings and plan as documented. SUBJECTIVE: denies pain, denies SOB. limited interaction OBJECTIVE: NAD, awake, alert, answers some questions, knows her name. teeth grinding Cv: RRR, no MRG Lungs: CTAB Abd: soft , NT, ND , NL BS Ext : No edema or erythema spasticity of legs and feet with b/l feet drop. flexion contraction of R elbow and wrist and hand ASSESSMENT AND PLAN: 78 y/o lady with h/o a neurological disorder being worked up by her neurologist who presented with worsening mental status 1- UTI 2- Acute metabolic encephalopathy : improved 3- cognitive impairment 4- Possible diagnosis of Creutzfeld Reese plan : - cont Abx - cx reviewed. - records obtained from her neurologist. possible diagnosis of Creleonie carcamo . last visit in Jan. family declined repeat LP as out pt - cont baclofen and benadryl - f/u with her own neuro as out pt Team spoke to son. Possible dc tomorrow . she is bed ridden at home and has services. He wants her to return home with services Possible dc tomorrow
[2019-05-26] MEDS: HEPARIN NA (PORCINE) 5,000 UNITS/ML 1ML VIAL SQ SCH ×3 (05:32→21:30)
[2019-05-26 08:14] LABS: HEMATOCRIT 31.8 % (32.4-45.2); HEMOGLOBIN 10.9 GM/dL (10.7-15.3); MCHC 34.2 g/dl (32.0-36.0); MEAN CELL VOLUME 87.7 fl (80-96); MEAN PLT VOLUME 8.9 fl (7.5-11.1); PLATELET COUNT 299 K/MM3 (134-434); RBC 3.62 M/mm3 (3.60-5.2); RDW 13.8 % (11.6-15.6); WHITE BLOOD COUNT 5.8 K/mm3 (4.0-10.0)
[2019-05-26 08:36] LABS: BLOOD UREA NITROGEN 9.1 mg/dL (7-18); CALCIUM 8.7 mg/dL (8.5-10.1); CREATININE 0.4 mg/dL (0.55-1.3); MAGNESIUM 1.9 mg/dL (1.8-2.4); PHOSPHOROUS 3.5 mg/dL (2.5-4.9); POTASSIUM 3.7 mmol/L (3.5-5.1)
[2019-05-26] MEDS ORDERED: DEXTROSE 5%-WATER - 50 ML IVPB ONE (10:07)
[2019-05-26] MEDS ORDERED: cefTRIAXone SODIUM 1 GM VIAL ONE (10:07)
[2019-05-26] MEDS: BACLOFEN 10 MG TABLET (FP) PO SCH ×2 (10:13→21:32)
[2019-05-26] MEDS: CEFTRIAXONE 1 GM in DEXTROSE 5%-WATER - 50 ML IVPB SCH (10:13)
--- NOTE | 2019-05-26 15:36 | PN ---
Teaching Attending Note Name of Resident: Joy Arnold ATTENDING PHYSICIAN STATEMENT I saw and evaluated the patient. I reviewed the resident's note and discussed the case with the resident. I agree with the resident's findings and plan as documented. SUBJECTIVE: no events. answers yes to almost all the questions including pain in chest, abd , hand, and head. OBJECTIVE: NAD, awake, alert, answers some questions, knows her name. teeth grinding Cv: RRR, no MRG Lungs: CTAB, but decreased breath sounds at bases Abd: soft, NT, ND, NL BS Ext: No edema or erythema. spasticity of legs and feet with b/l feet drop. 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 no signs of systemic response - mental status is at base line now - cont baclofen and benadryl. - f/u with her own neuro as out pt Team spoke to son yesterday. plan for home with [facility], she has 24/7 aid . dc today.
--- NOTE | 2019-05-26 18:39 | DS ---
Physical Exam: SUBJECTIVE: Patient seen and examined at bedside. she states no complaints. denies problems breathing or cp. eating well OBJECTIVE: Vital Signs Period Temp Pulse Resp BP Sys/Rivera Pulse Ox Last 24 Hr 98 F-99.8 F 64-85 - 115-144/56-73 95-95 PHYSICAL EXAM GENERAL: The patient is awake, alert, and oriented to person , in no acute distress.she appears more comfortable and less bruxism. HEAD: Normal with no signs of trauma. LUNGS: Breath sounds equal, clear to auscultation bilaterally, no accessory muscle use. HEART: Regular rate and rhythm, S1, S2 without murmur ABDOMEN: Soft, nontender, nondistended, normoactive bowel sounds EXTREMITIES: 2+ pulses, warm, well-perfused, no edema. Laboratory Results - last 24 hr 05/26/19 05/26/19 07:10 07:10 WBC 5.8 RBC 3.62 Hgb 10.9 Hct 31.8 L MCV 87.7 MCH 30.0 MCHC 34.2 RDW 13.8 Plt Count 299 MPV 8.9 Sodium 139 Potassium 3.7 Chloride 108 H Carbon Dioxide 23 Anion Gap 7 L BUN 9.1 Creatinine 0.4 L Est GFR (CKD-EPI)AfAm 115.62 Est GFR (CKD-EPI)NonAf 99.76 Random Glucose 90 Calcium 8.7 Phosphorus 3.5 Magnesium 1.9 HOSPITAL COURSE: Date of Admission:05/21/19 78 yo F PMH of Parkinson's presented to the ED for worsening mental status and bruxism. Pt is admitted for acute toxic metabolic encephalopathy 2/2 UTI. Urine cultures grew Enerobacter, sensitivities were sensitive to ceftriaxone. While in the hospital, pt was treated with ceftriaxone for 4 days. pt was evaluated by neurology, who recommended continuation of baclofen. Contact was made with the patient's neurologist, Dr. Avalos, records were received indicating the suspected dx of CJD, although no confirmatory testing was done and pt was lost to follow up since 01/2019. Psychiatry also assessed and did not see any psych intervention/ meds necessary. pt. Pt's son was contacted who stated that pt has had a rapid decline in mental status including bruxism since november, leaving her immobile. pt has a 27/10 home health aid, son stated over the phone that pts mental status appeared at baseline. Pt is discharged back home with Home health aid. Date of Discharge: 05/26/19 Minutes to complete discharge: 38 Discharge Summary Problems reviewed: Yes Reason For Visit: MUSCLE SPASM,LACTIC ACIDOSIS Current Active Problems Bruxism (teeth grinding) (Chronic) Creutzfeldt-Kevin disease, unspecified (Chronic) Condition: Improved - Instructions Diet, Activity, Other Instructions: You came into the hospital for an infection in your urine. You were treated with a complete course of IV antibiotics. You were seen by the medicine hospitalists, the neurologist, and the psychiatrist. After communication with your neurologist, Dr. Avalos, it is possible that you have an infection in your brain. Your symptoms worsened recently because you had the infection in your urine. Medications: Please continue your home medications as prescribed. Please follow up with your primary care physician in 1 week to monitor your improvement. Please follow up with your Neurologist, Dr. Avalos, in 1 week to monitor your neurologic improvement. If you have any new, worsening, or concerning symptoms please return to the ED or call 911. Referrals: Luis A Heller MD [Primary Care Provider] - 1 Week ON STAFF,NOT [Non Staff, Medical] - 1 Week (Dr. Avalos @ [facility] ([phone]) [address] [place] [address]) Disposition: VNS/HOME HEALTH CARE - Home Medications Comprehensive Discharge Medication List: Ambulatory Orders Baclofen 10 mg PO BID 05/25/19 This patient is new to me today: No Emergency Visit: No Critical Care patient: No - Discharge Referral Referred to [facility] Med [facility].: No ATTENDING PHYSICIAN STATEMENT I saw and evaluated the patient. I reviewed the resident's note and discussed the case with the resident. I agree with the resident's findings and plan as documented. SUBJECTIVE: OBJECTIVE: ASSESSMENT AND PLAN:
[2019-05-27] MEDS: diphenhydrAMINE HCL 25 MG CAPSULE (FP) PO PRN (01:17)
[2019-05-27] MEDS ORDERED: PT OWN MED DRAWER 7, Y5N ONE ×2 (05:25→21:01)
[2019-05-27] MEDS: HEPARIN NA (PORCINE) 5,000 UNITS/ML 1ML VIAL SQ SCH ×3 (07:01→21:06)
[2019-05-27] MEDS: BACLOFEN 10 MG TABLET (FP) PO SCH ×2 (10:41→21:06)
--- NOTE | 2019-05-27 16:41 | PN ---
Progress Note (short form) - Note Progress Note: Physical Exam: SUBJECTIVE: Patient seen and examined at bedside. she states no complaints. denies sob or cp. OBJECTIVE: Vital Signs Period Temp Pulse Resp BP Sys/Rivera Pulse Ox Last 24 Hr 98 F-99.8 F 64-85 20-20 115-144/56-73 95-95 PHYSICAL EXAM GENERAL: The patient is awake, alert, and oriented to person , in no acute distress.she appears more comfortable and less bruxism. HEAD: Normal with no signs of trauma. LUNGS: Breath sounds equal, clear to auscultation bilaterally, no accessory muscle use. HEART: Regular rate and rhythm, S1, S2 without murmur ABDOMEN: Soft, nontender, nondistended, normoactive bowel sounds EXTREMITIES: 2+ pulses, warm, well-perfused, no edema. Pt discharged yesterday. pt appealed discharge. plan still unchanged. 78 yo F PMH of Parkinson's presented to the ED for worsening mental status and bruxism. Pt is admitted for acute toxic metabolic encephalopathy 2/2 UTI Acute Toxic metabolic encephalopathy 2/2 UTI - s/p ceftriaxone x 3 days - UCx: enterobacter, sensitivities reviewed. mike sensitive - psych consulted, no intervention necessary' - neuro consulted, pt will f/u outpt Parkinsons vs Creutzfeld Leigh - c/w baclofen -TSH, B12 , folate wnl -contacted outpt Neurologist : Dr. Avalos; stated that working DDx is Creutzfeld vs Parkinson's. Pt was not tested for Creutzfeld and has not been seen since 01/2019. records obtained and reviewed, pt does not have any confirmatory tests for Creutzfeld, although outpt neurologist suggests thats the most likely Dx DVT ppx: Heparin pt DC home with 27/10 home health aid
--- NOTE | 2019-05-27 19:27 | PN ---
Teaching Attending Note Name of Resident: Joy Arnold ATTENDING PHYSICIAN STATEMENT I saw and evaluated the patient. I reviewed the resident's note and discussed the case with the resident. I agree with the resident's findings and plan as documented. SUBJECTIVE: seen at 8:30 am denies any pain or fever or N/V. No events over night OBJECTIVE: NAD, awake, alert, less teeth grinding CV: RRR, no MRG Lungs: CTAB anteriorly Abd: soft, NT, ND, NL BS Ext: No edema or erythema. spasticity of legs and feet with b/l feet drop. 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 - f/u with her own neuro as out pt patient was discharged today but family appealed
[2019-05-27] MEDS: POLYETHYLENE GLYCOL 3350 119 GM BTL PO SCH (21:06)
[2019-05-27] MEDS ORDERED: SENNOSIDES/DOCUSATE COMBO (SENNA PLUS) TABLET (UD) PO SCH (22:00)
[2019-05-28] MEDS: HEPARIN NA (PORCINE) 5,000 UNITS/ML 1ML VIAL SQ SCH ×2 (06:16→16:45)
[2019-05-28] MEDS: POLYETHYLENE GLYCOL 3350 119 GM BTL PO SCH (11:15)
[2019-05-28] MEDS: BACLOFEN 10 MG TABLET (FP) PO SCH (11:15)
--- NOTE | 2019-05-28 16:51 | PN ---
Teaching Attending Note Name of Resident: Joy Arnold ATTENDING PHYSICIAN STATEMENT I saw and evaluated the patient. I reviewed the resident's note and discussed the case with the resident. I agree with the resident's findings and plan as documented. SUBJECTIVE: seen around 10 am No fever or chills, she denies any pain, or SOB. she feels " better today " OBJECTIVE: NAD, awake, alert, no teeth grinding today CV: RRR, no MRG Lungs: CTAB anteriorly Abd: soft, NT, ND, NL BS. Ext: No edema or erythema. spasticity of legs and feet with b/l feet drop. 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 - f/u with her own neuro as out pt patient was already discharged but family declined taking her home ( the don' t want NH placement ). Of note per team d/w her neurologist, family was informed of possibility of CJD after many studies and LP. Family declined further diagnostic testing , including repeat LP and kept her at home with help. Last visit to neuro was Jan. patient has been declining but now at her base line before admission. Neuro eval during this admission , indicated stable condition and out pt follow up. Dr. Arnold discussed this case with Dr. Vargas who indicated no need for inpatient work up, and that all work up can be done as out pt . She was provided with dr. Vargas information to follow up with him if she and family wish to.
--- NOTE | 2019-05-28 18:48 | PN ---
Progress Note (short form) - Note Progress Note: Physical Exam: SUBJECTIVE: Patient seen and examined at bedside. she states no complaints. denies sob or cp. Vital Signs Period Temp Pulse Resp BP Sys/Rivera Pulse Ox Last 24 Hr 98.6 F-98.7 F 75-79 20-20 98-117/57-67 96-96 PHYSICAL EXAM GENERAL: The patient is awake, alert, and oriented to person , in no acute distress.she appears more comfortable and less bruxism. HEAD: Normal with no signs of trauma. LUNGS: Breath sounds equal, clear to auscultation bilaterally, no accessory muscle use. HEART: Regular rate and rhythm, S1, S2 without murmur ABDOMEN: Soft, nontender, nondistended, normoactive bowel sounds EXTREMITIES: 2+ pulses, warm, well-perfused, no edema. Pt discharged from 2 days ago. pt appealed discharge. plan still unchanged. pt plan was discussed with pt's sons. Dr. Vargas was consulted. Pt will be discharged and will follow up outpt for MRI. Pt will bring old MRI and testing to her outpt neuro appointment . pt advised to have close f/u with neuro and pmd. pt is discharged home to home health aid.
[2019-05-28 18:50] VITALS: BP 98/57; PULSE 76; TEMP 98.7
--- NOTE | 2019-05-28 19:16 | CONSULT ---
Consult - text type - Consultation Consultation Note: NEUROLOGY CONSULTATION is greatly appreciated: Events reviewed and discussed with Dr. Arnold and Pt's son, David, at the bedside. Later discussed with son, Casey. This 78 yo woman has had a year course of progressive neurological deterioration without a definitive diagnosis. Short-term memory changes were the harbinger of changes 4-5 years ago. At least 1 year of progressive gait dysfunction and falls. Used walker until last summer and wheelchair since. Progressive spasticity and contractures. Hallucinations and delusions over the last year unresponsive to multiple psychoactive meds which son feels may have induced worsening bruxism x 6 mos. David describes Lumbar puncture which was non-diagnostic and Casey recalls MRI of brain (07/2018) showing atrophy and extensive "White matter disease." Multiple hospitalizations for deterioration, often associated with UTI, including this admission. Apparently improving somewhat after antibiotics. - FH of neurodegenerative disease TSH and B12 Normal JONI: Neck rigid in all directions. No evidence of head trauma. No bruits. In diaper NEURO: Awake, alert. Rests with eyes closed. Follows simple commands. Perseverative speech. Names David after multiple tries. No month, date, year, etc. ++Glabella, snout, suck, root, grasps. Full EOM's. Occ. Right conjugate gaze deviation. Full youssef to threat. No facial. Gag OK. Swallowing soft and fluids without difficulty + bruxism and some dystonic mov'ts of head and neck Severe rigidity all fours but right arm >> left with severe contactures. Contractures of both ankle in plantarflexion. Plantars silent Some cogwheel rigidity. Normal upper and reduced LE reflexes. Grimaces to pinch all 4's. IMP: Severe B/L cerebral dysfunction (OMS) with progressive Rigidity contractures and mild extrapyramidal features. 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 Most like associated with the more global movement disorder +/- contribution of possible Tardive dyskinesia Worsening due to Toxic-metabolic encephalopathy (UTI). The most likely unifying diagnoses are neurodegenerative conditions and, statistically, Alzheimer's disease would be the most likely cause. Doubt infectious etiologies but would not exclude autoimmune conditions such as late onset MS. SUGGEST: I have offered to review the recent CSF results (especially to see is MS studies were sent) and the images of July's MRI-family will provide. I would then repeat the MRI and compare. Consider AMVID PET scan for Amyloidopathy and STU scan for alpha- Synucleinopathy. Review prior drug trials Try Clonazepam 0.5 mg q12 H for bruxism. Thank you very much, Herminio Vargas MD
[2019-05-28] MEDS ORDERED: clonazePAM 0.5 MG TABLET PO PRN (19:24)
== END 2019-05-28 08:45 | disposition home health service (06) | DRG 689 ==
LOC: JER 20:44 → JERBED 23:04 → J5S 05-22 03:02
PROVIDERS: ADMIT Internal Medicine; ATTEND Internal Medicine
DX: N39.0 Urinary tract infection, site not specified (principal); G93.41 Metabolic encephalopathy; E87.2 Acidosis; E87.3 Alkalosis; A81.00 Creutzfeldt-Jakob disease, unspecified; R06.82 Tachypnea, not elsewhere classified; F45.8 Other somatoform disorders; G20 Parkinson's disease; G31.84 Mild cognitive impairment of uncertain or unknown etiology
CPT/HCPCS: 36415; 71045-TC-FY; 80048; 80053; 81003; 82550; 82607; 82746; 82803; 83605; 83735; 84100; 84443; 84484; 85025; 85027; 85379; 85610; 85730; 87040; 87086; 87186; 87804; 93005; 93010; 97161-GP; 99285-25; J0131; J0475; J1644; J7030

== ENCOUNTER 2019-10-09 12:51 | Inpatient (IN) | payer OTHER, MEDICARE ==
--- NOTE | 2019-10-09 13:10 | PDOC ---
History of Present Illness - General Chief Complaint: Injury Stated Complaint: FALL Time Seen by Provider: 10/09/19 13:08 History Source: Family - History of Present Illness Initial Comments: 10/09/19 13:09 79F w/hx parkinson's disease, admission earlier this year for urosepsis (enterobacter, ceftriaxone sensitive) p/w unwitnessed fall at home. She has dementia and is unable to contribute to history. Per her son she has two home health aids who alternate shifts - the second home health aid found her on the ground this AM upon her arrival. Per her son she is at her baseline mental status. No recent fevers, cough, chills. She denies any pain, chest pain, sob, weakness, fatigue. She does not recall the fall. Neuro: Dr. Avalos Past History - Medical History Allergies/Adverse Reactions: Allergies Allergy/AdvReac Type Severity Reaction Status Date / Time Sulfa (Sulfonamide Allergy Unknown Verified 10/09/19 13:04 Antibiotics) sulfamethoxazole Allergy Verified 10/09/19 13:04 [From Bactrim] trimethoprim [From Bactrim] Allergy Verified 10/09/19 13:04 midazolam [From Versed] AdvReac Severe SEVERE Verified 10/09/19 13:04 MEMORY LOSS FOR SIX MONTHS AFER RECEIVING Opioids - Morphine Analogues AdvReac Verified 10/09/19 13:04 Home Medications: Ambulatory Orders Sennosides [Senna] 2 tab PO HS 10/09/19 Anemia: No Asthma: No Cancer: No Cardiac Disorders: No CVA: No COPD: No CHF: No Dementia: Yes Diabetes: No GI Disorders: Yes (REDUNDANT BOWEL) Disorders: No HTN: No Hypercholesterolemia: No Liver Disease: No Seizures: No Thyroid Disease: No - Surgical History Abdominal Surgery: No Appendectomy: No Cardiac Surgery: No Cholecystectomy: No Lung Surgery: No Neurologic Surgery: No Orthopedic Surgery: Yes (R KNEE REPLACEMENT) - Immunization History Td Vaccination: No Immunization Up to Date: No - Psycho-Social/Smoking History Smoking Status: No Smoking History: Unknown if ever smoked Years of Tobacco Use: 0 Have you smoked in the past 12 months: No Number of Cigarettes Smoked Daily: 0 Review of Systems - Review of Systems Able to Perform ROS?: Yes Comments:: GENERAL/CONSTITUTIONAL: No fever or chills. No weakness. HEAD, EYES, EARS, NOSE AND THROAT: No change in vision. No ear pain or discharge. No sore throat. CARDIOVASCULAR: No chest pain or shortness of breath RESPIRATORY: No cough, wheezing, or hemoptysis. GASTROINTESTINAL: No nausea, vomiting, diarrhea or constipation. GENITOURINARY: No dysuria, frequency, or change in urination. MUSCULOSKELETAL: No joint or muscle swelling or pain. No neck or back pain. SKIN: No rash NEUROLOGIC: No headache, vertigo, loss of consciousness, or change in strength/sensation. ENDOCRINE: No increased thirst. No abnormal weight change HEMATOLOGIC/LYMPHATIC: No anemia, easy bleeding, or history of blood clots. ALLERGIC/IMMUNOLOGIC: No hives or skin allergy. *Physical Exam - Physical Exam GENERAL: Awake, alert, in no acute distress HEAD: No signs of trauma, normocephalic, atraumatic EYES: PERRLA, EOMI, sclera anicteric, conjunctiva clear ENT: Auricles normal inspection, hearing grossly normal, nares patent, oropharynx clear without exudates. Moist mucosa NECK: Normal ROM, supple, no lymphadenopathy, JVD, or masses LUNGS: No distress, speaks full sentences, clear to auscultation bilaterally HEART: Regular rate and rhythm, normal S1 and S2, no murmurs, rubs or gallops, peripheral pulses normal and equal bilaterally. ABDOMEN: Soft, nontender, normoactive bowel sounds. No guarding, no rebound. No masses EXTREMITIES : Normal inspection, Normal range of motion, no edema. No clubbing or cyanosis NEUROLOGICAL: Cranial nerves II through XII grossly intact. Normal speech, normal gait, no focal sensorimotor deficits SKIN: Warm, Dry, normal turgor, no rashes or lesions noted BACK: Thoracic midline spinal tenderness, paraspinal tenderness. No bruising, crepitus, or bony stepoffs noted. ED Treatment Course - LABORATORY CBC & Chemistry Diagram: 10/10/19 07:40 10/10/19 07:40 Medical Decision Making - Medical Decision Making 10/09/19 13:34 79F w/hx dementia p/w unwitnessed fall at home. History limited by dementia. Ddx subdural vs other ICH, UTI, pneumonia. Plan: CT Head, cervical/thoracic/lumbar spine UA Urine culture Straight cath CBC CMP EKG CXR Troponin I PT/INR, APTT Dispo: Admit 10/09/19 14:05 rectal temp 99.4 --- UA - trace leuk esterase, 350 bacteria Plan for ceftriaxone. --- CT head/chest/CTL spines negative for fracture or other acute process. Plan for admission. Discharge - Discharge Information Problems reviewed: Yes Clinical Impression/Diagnosis: Fall, AMS (altered mental status), UTI (urinary tract infection) Condition: Stable - Admission Yes - Follow up/Referral - Patient Discharge Instructions - Post Discharge Activity
--- NOTE | 2019-10-09 13:38 | PDOC ---
Documentation entered by Meghan Piper SCRIBE, acting as scribe for Rosalia Ahumada MD. Rosalia Ahumada MD: This documentation has been prepared by the Feliz brock Ana, SCRIBE, under my direction and personally reviewed by me in its entirety. I confirm that the documentation accurately reflects all work, treatment, procedures, and medical decision making performed by me. Attending Attestation - Resident Resident Name: Logan Amaya - ED Attending Attestation I have performed the following: I have examined & evaluated the patient, The case was reviewed & discussed with the resident, I agree w/resident's findings & plan, Exceptions are as noted - HPI HPI: 10/09/19 13:14 Patient is a 79 year old female with a significant past medical history of dementia, arthritis, frequent UTIs, and hearing issues, who presents to the ED with a fall as per home health aid who found her on the ground this morning. Patient stated that she does not recall falling. Per EMS, patient is on multiple medications, patient cannot bend her left leg, there was slight coloration on her back, but there was no bleeding, bruising, or loss of consciousness. Patient stated she has minor back pain and pain increases when she lays in her side. Patient denies any other related symptoms. Allergies: sulfonamide antibiotics, sulfamethoxazole, benzodiazepines, diazepam - Physicial Exam PE: 10/09/19 13:20 awake alert head atraumatic. no midline spinal tenderness. abd soft nt nd ext wwp. lungs clear bilat heart rrr no mrg - Medical Decision Making 10/09/19 13:[address] head r/o ich, labs r/o anemia, electrolyte abnormality. also unwitness so will add trop and ekg r/o syncope. ct cervical spine. ua r/o infection. pt positive for uti given ceftriaxone. ct head c spine unremarkable. will be admitted. for unwitnessed fal/ syncope. and uti. Discharge - Discharge Information Problems reviewed: Yes Clinical Impression/Diagnosis: Fall, AMS (altered mental status), UTI (urinary tract infection) Condition: Stable Disposition: HOME - Follow up/Referral - Patient Discharge Instructions - Post Discharge Activity
[2019-10-09 14:10] LABS: BASO % 1.1 % (0-2.0); EOS % 2.9 % (0-4.5); HEMATOCRIT 34.4 % (32.4-45.2); HEMOGLOBIN 11.5 GM/dL (10.7-15.3); LYMPH % 22.1 % (8-40); MCH 28.8 pg (25.7-33.7); MCHC 33.4 g/dl (32.0-36.0); MEAN CELL VOLUME 86.3 fl (80-96); MEAN PLT VOLUME 7.2 fl (7.5-11.1); MONO % 12.1 % (3.8-10.2); NEUT % 61.8 % (42.8-82.8); PLATELET COUNT 362 K/MM3 (134-434); RBC 3.99 M/mm3 (3.60-5.2); RDW 14.5 % (11.6-15.6); WHITE BLOOD COUNT 6.9 K/mm3 (4.0-10.0)
[2019-10-09 14:16] LABS: INR 0.9 (0.83-1.09); PROTHROMBIN TIME (PATIENT) 10.6 SEC (9.7-13.0)
[2019-10-09 14:19] LABS: ACTIVATED PTT 30.4 SECONDS (25.2-36.5)
[2019-10-09 14:32] LABS: ALBUMIN 3.2 g/dl (3.4-5.0); ALK PHOS 68 U/L (45-117); ANION GAP 9 MMOL/L (8-16); BILIRUBIN,TOTAL 0.7 mg/dL (0.2-1); BLOOD UREA NITROGEN 5.9 mg/dL (7-18); CALCIUM 9.4 mg/dL (8.5-10.1); CHLORIDE 91 mmol/L (98-107); CO2 26 mmol/L (21-32); CREATININE 0.5 mg/dL (0.55-1.3); GLUCOSE,RANDOM 106 mg/dL (74-106); POTASSIUM 4.4 mmol/L (3.5-5.1); SGOT/AST 24 U/L (15-37); SGPT/ALT 14 U/L (13-61); SODIUM 126 mmol/L (136-145); TOT PROT 6.8 g/dl (6.4-8.2)
[2019-10-09] MEDS ORDERED: SODIUM CHLORIDE 0.9% 500 ML INFUS.BAG IV ONE (14:37)
[2019-10-09] MEDS ORDERED: CEFTRIAXONE 1,000 MG in DEXTROSE 5%-WATER - 50 ML IVPB ONE (14:42)
[2019-10-09 14:50] LABS: EPI CELLS 22 /uL (0-25.1); HYALINE CASTS 0 /uL (0-3.1); PH,URINE 8.5 (5.0-8.0); URINE APPEARANCE CLOUDY; URINE BACTERIA 353 /uL (0-1359); URINE BILIRUBIN NEGATIVE (NEGATIVE); URINE COLOR YELLOW; URINE GLUCOSE (UA) NEGATIVE (NEGATIVE); URINE KETONE NEGATIVE (NEGATIVE); URINE LEUK ESTERASE TRACE (NEGATIVE); URINE NITRITE NEGATIVE (NEGATIVE); URINE PROTEIN NEGATIVE (NEGATIVE); URINE UROBILINOGEN 0.2 mg/dL (0.2-1.0); URINE WBC 12 /uL (0-25.8)
[2019-10-09] MEDS ORDERED: CEFTRIAXONE 1 GM/50 ML BAG ONE (14:54)
[2019-10-09 15:14] LABS: URINE RBC 127.7 /uL (0-23.9); YEAST NON SEEN (NEGATIVE)
[2019-10-09] MEDS ORDERED: ACETAMINOPHEN 325 MG TABLET (FP) PO PRN (18:16)
--- NOTE | 2019-10-09 18:25 | HP ---
CHIEF COMPLAINT: post fall PCP: Dr Heller HISTORY OF PRESENT ILLNESS: 79F w/hx dementia (unclear exactly if parkinson's disease), admission earlier this year for urosepsis (enterobacter, ceftriaxone sensitive) p/w unwitnessed fall at home overnight. She has dementia and is unable to contribute to history. Per her son, David, she has two home health aids who alternate shifts - the second home health aid found her on the ground this AM upon her arrival. Per her son she is at her baseline mental status. No r ecent fevers, cough, chills. She denies any pain, chest pain, sob, weakness, fatigue. She does not recall the fall. Son reports that she was admitted about a year ago with panic attacks, then transferred to snf -- in the SNF she declined significantly to the point where they finally brought her home with 24 hour care. She is extremely sensitive to benzos and has adverse reactions, as well as seroquel. PER SON"S REQUEST - NO BENZOS OR SEROQUEL He uses benadryl at night if pt gets agitated and cannot fall asleep Neuro: Dr. Avalos ER course was notable for: (1) Low sodium (2) Confusion but at her baseline (3) Recent Travel: None PAST MEDICAL HISTORY: None, not taking any meds; dementia as mentioned above PAST SURGICAL HISTORY: Left hip fx, right knee repair Social History: Smoking: None Alcohol: None Drugs: None Allergies Sulfa (Sulfonamide Antibiotics) Allergy (Unknown, Verified 10/09/19 13:04) sulfamethoxazole [From Bactrim] Allergy (Verified 10/09/19 13:04) trimethoprim [From Bactrim] Allergy (Verified 10/09/19 13:04) midazolam [From Versed] Adverse Reaction (Severe, Verified 10/09/19 13:04) SEVERE MEMORY LOSS FOR SIX MONTHS AFER RECEIVING Opioids - Morphine Analogues Adverse Reaction (Verified 10/09/19 13:04) "GOT DISORIENTED" "TOOK A LOG TIME TO GET OUT OF ME" HOME MEDICATIONS: Home Medications Medication Instructions Recorded Sennosides [Senna] 2 tab PO HS 10/09/19 REVIEW OF SYSTEMS: unreliable as pt is disoriented, is only oriented to self right now CONSTITUTIONAL: Absent: fever, chills, diaphoresis, generalized weakness, malaise, loss of appetite, weight change HEENT: Absent: rhinorrhea, nasal congestion, throat pain, throat swelling, difficulty swallowing, mouth swelling, ear pain, eye pain, visual changes CARDIOVASCULAR: Absent: chest pain, syncope, palpitations, irregular heart rate, lightheadedness, peripheral edema RESPIRATORY: Absent: cough, shortness of breath, dyspnea with exertion, orthopnea, wheezing, stridor, hemoptysis GASTROINTESTINAL: Absent: abdominal pain, abdominal distension, nausea, vomiting, diarrhea, constipation, melena, hematochezia GENITOURINARY: Absent: dysuria, frequency, urgency, hesitancy, hematuria, flank pain, genital pain MUSCULOSKELETAL: Absent: myalgia, arthralgia, joint swelling, Pos back pain, no neck pain SKIN: Absent: rash, itching, pallor HEMATOLOGIC/IMMUNOLOGIC: Absent: easy bleeding, easy bruising, lymphadenopathy, frequent infections ENDOCRINE: Absent: unexplained weight gain, unexplained weight loss, heat intolerance, cold intolerance NEUROLOGIC: Absent: headache, focal weakness or paresthesias, dizziness, unsteady gait, seizure, mental status changes, bladder or bowel incontinence PSYCHIATRIC: Absent: anxiety, depression, suicidal or homicidal ideation, hallucinations. PHYSICAL EXAMINATION Vital Signs - 24 hr 10/09/19 10/09/19 13:04 13:20 Temperature 99.1 F Pulse Rate 74 Respiratory 24 H Rate Blood Pressure 109/66 O2 Sat by Pulse 96 Oximetry (%) GENERAL: Awake, alert, and answering questions but confused, pleasant, no agitation, son at bedside, in no acute distress. HEAD: Normal with no signs of trauma. EYES: extraocular movements intact, sclera anicteric, conjunctiva clear. No lid lag. EARS, NOSE, THROAT: Ears normal, nares patent, oropharynx clear without exudates. Moist mucous membranes. NECK: Normal range of motion, supple without lymphadenopathy, JVD, or masses. LUNGS: Breath sounds equal, clear to auscultation bilaterally. No wheezes, and no crackles. No accessory muscle use. HEART: Regular rate and rhythm, normal S1 and S2 without murmur, rub or gallop. ABDOMEN: Soft, nontender, not distended, normoactive bowel sounds, no guarding, no rebound, no masses. No hepatomegaly or splenomegaly. MUSCULOSKELETAL: Normal range of motion at all joints. No bony deformities or tenderness. No CVA tenderness. Mild mid back tenderness to palpation UPPER EXTREMITIES: 2+ pulses, warm, well-perfused. No cyanosis. No clubbing. No peripheral edema. RUE contracted (per son, for the past 6 months not new) LOWER EXTREMITIES: 2+ pulses, warm, well-perfused. No calf tenderness. No peripheral edema. NEUROLOGICAL: Unable to assess clearly, not following commands PSYCHIATRIC: Cooperative. Good eye contact. Appropriate mood and affect. Forgetful SKIN: Warm, dry, normal turgor, no rashes or lesions noted, normal capillary refill. Laboratory Results - last 24 hr 10/09/19 10/09/19 10/09/19 13:30 13:30 13:30 WBC 6.9 RBC 3.99 Hgb 11.5 Hct 34.4 MCV 86.3 MCH 28.8 MCHC 33.4 RDW 14.5 Plt Count 362 D MPV 7.2 L D Absolute Neuts (auto) 4.3 Neutrophils % 61.8 Lymphocytes % 22.1 D Monocytes % 12.1 H Eosinophils % 2.9 Basophils % 1.1 Nucleated RBC % 0 PT with INR 10.60 INR 0.90 PTT (Actin FS) 30.4 Sodium 126 L Potassium 4.4 Chloride 91 L Carbon Dioxide 26 Anion Gap 9 BUN 5.9 L Creatinine 0.5 L Est GFR (CKD-EPI)AfAm 106.69 Est GFR (CKD-EPI)NonAf 92.05 Random Glucose 106 Calcium 9.4 Total Bilirubin 0.7 AST 24 ALT 14 Alkaline Phosphatase 68 Troponin I < 0.02 Total Protein 6.8 Albumin 3.2 L Urine Color Urine Appearance Urine pH Ur Specific Hayden Urine Protein Urine Glucose (UA) Urine Ketones Urine Blood Urine Nitrite Urine Bilirubin Urine Urobilinogen Ur Leukocyte Esterase Urine WBC (Auto) Urine RBC (Auto) Urine Casts (Auto) U Epithel Cells (Auto) Urine Bacteria (Auto) Urine Yeast (Auto) 10/09/19 14:15 WBC RBC Hgb Hct MCV MCH MCHC RDW Plt Count MPV Absolute Neuts (auto) Neutrophils % Lymphocytes % Monocytes % Eosinophils % Basophils % Nucleated RBC % PT with INR INR PTT (Actin FS) Sodium Potassium Chloride Carbon Dioxide Anion Gap BUN Creatinine Est GFR (CKD-EPI)AfAm Est GFR (CKD-EPI)NonAf Random Glucose Calcium Total Bilirubin AST ALT Alkaline Phosphatase Troponin I Total Protein Albumin Urine Color Yellow Urine Appearance Cloudy Urine pH 8.5 H Ur Specific Hayden 1.007 L Urine Protein Negative Urine Glucose (UA) Negative Urine Ketones Negative Urine Blood 1+ H Urine Nitrite Negative Urine Bilirubin Negative Urine Urobilinogen 0.2 Ur Leukocyte Esterase Trace Urine WBC (Auto) 12 Urine RBC (Auto) 127.7 Urine Casts (Auto) 0 U Epithel Cells (Auto) 22 Urine Bacteria (Auto) 353 Urine Yeast (Auto) Non seen Ct head/thoracic spine - pending ekg: not done yet ASSESSMENT/PLAN: 79 y/o female with dementia admitted post fall * post unwitnessed fall -- ct head neg for acute pathology await rest of ct results -- rule out fx currently not in pain fall precautions at baseline per son *dementia - son requests to not use benzos or seropquel due to horrible reactions in the past on these meds will use benadryl may need restraints if s at night *hyponatremia - with low chloride likely volume contracted gentle hydration *?uti - given rocephin in ed ua looks unimpressive to me, con switch to oral abx if urine culture positive *dvt prophy - sq heparin F/U final; ekg, ct results as still not done Family Medical History Family History: Denies Problem List - Problem (1) Dementia Code(s): F03.90 - UNSPECIFIED DEMENTIA WITHOUT BEHAVIORAL DISTURBANCE Visit type - Emergency Visit Emergency Visit: Yes ED Registration Date: 10/09/19 Care time: The patient presented to the Emergency Department on the above date and was hospitalized for further evaluation of their emergent condition. - New Patient This patient is new to me today: Yes Date on this admission: 10/09/19 - Critical Care Critical Care patient: No
[2019-10-09] MEDS ORDERED: SODIUM CHLORIDE 1,000 ML IV SCH (18:30)
[2019-10-09 19:13] VITALS: BMI 21.2
[2019-10-09] MEDS ORDERED: diphenhydrAMINE HCL 25 MG CAPSULE (FP) PO ONE (22:16)
[2019-10-09] MEDS ORDERED: SENNOSIDES 8.6MG TABLET (FP) PO ONE (22:16)
[2019-10-09] MEDS ORDERED: HEPARIN NA (PORCINE) 5,000 UNITS/ML 1ML VIAL ONE (22:17)
[2019-10-09] MEDS: HEPARIN NA (PORCINE) 5,000 UNITS/ML 1ML VIAL SQ SCH (23:00)
[2019-10-09] MEDS: SENNOSIDES 8.6MG TABLET (FP) PO SCH (23:00)
[2019-10-10] MEDS ORDERED: diphenhydrAMINE HCL 25 MG CAPSULE (FP) PO ONE (04:37)
[2019-10-10] MEDS: diphenhydrAMINE HCL 25 MG CAPSULE (FP) PO SCH ×2 (04:44→22:19)
--- NOTE | 2019-10-10 07:44 | PN ---
Progress Note, Physician Chief Complaint: Seen and examined in ED with son at bedside. Confused -more so as per son-speech incoherent at times. Aferile. As per son has had episodes of hyponatremia causing confusion in the past. COVID PCR pending-tested negative as per family in past. History of Present Illness: 79 y/o female with dementia admitted post fall. Recently admitted and treated for UTI with sepsis-enterobacter ceftriaxone sensitive - Current Medication List Current Medications: Active Medications Acetaminophen (Tylenol -) 650 mg PO Q4H PRN PRN Reason: MILD PAIN 1-3 Diphenhydramine HCl (Benadryl -) 25 mg PO HS [facility] Last Admin: 10/10/19 04:44 Dose: 25 mg Documented by: Heparin Sodium (Porcine) (Heparin -) 5,000 unit SQ BID [facility] Last Admin: 10/09/19 23:00 Dose: 5,000 unit Documented by: Sodium Chloride (Normal Saline -) 1,000 mls @ 50 mls/hr IV ASDIR [facility] Stop: 10/10/19 18:17 Last Admin: 10/09/19 18:55 Dose: 50 mls/hr Documented by: Pneumococcal 13-Valent Conj Vacc (Prevnar 13 Syringe -) 0.5 ml IM .ONCE ONE Stop: 10/09/19 19:30 Senna (Senna -) 2 tab PO [facility] Last Admin: 10/09/19 23:00 Dose: 2 tab Documented by: - Objective Vital Signs: Vital Signs Temperature 97.8 F 10/10/19 06:58 Pulse Rate 66 10/10/19 06:58 Respiratory Rate 16 10/10/19 06:58 Blood Pressure 122/74 10/10/19 06:58 O2 Sat by Pulse Oximetry (%) 98 10/10/19 06:58 Constitutional: Yes: Anxious, Mild Distress, Thin Eyes: Yes: WNL, Conjunctiva Clear HENT: Yes: WNL, Atraumatic, Normocephalic Neck: Yes: WNL, Supple, Trachea Midline Cardiovascular: Yes: WNL, Regular Rate and Rhythm Respiratory: Yes: Regular, Diminished Gastrointestinal: Yes: Normal Bowel Sounds, Soft ...Rectal Exam: Yes: Deferred Genitourinary: Yes: WNL, Incontinence Musculoskeletal: Yes: WNL, Muscle Weakness (generalized weakness) Extremities: Yes: Other (RUE contracted (per son, for the past 6 months)) Edema: No Peripheral Pulses WNL: Yes Peripheral Pulses: Left Radial: 2+, Right Radial: 2+, Left Doralis Pedis: 2+, Right Dorsalis Pedis: 2+, Left Femoral: 2+, Right Femoral: 2+ Integumentary: Yes: Bruising (to left forarm), Other (to righ) Neurological: Yes: Alert, Confusion, Dysarthria, Weakness ...Motor Strength: LUE, LLE, RUE, RLE (generalized wekaness) Labs: CBC, BMP 10/09/19 13:30 10/09/19 13:30 INR, PTT INR 0.90 (0.83-1.09) 10/09/19 13:30 - ....Imaging Cat Scan: Report Reviewed (HCT: no acute pathology, bibasilar atelectasis) Problem List - Problems (1) Acute metabolic encephalopathy Assessment/Plan: more confused then normal as per son avoid benzo/seroquel-adverse effects can give Benadryl orn q hs multifactorial-hyponatremia, dementia, uti HCT withput acute patghology may need 1:1-try to avoid restraining overnight Code(s): G93.41 - METABOLIC ENCEPHALOPATHY (2) 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 Assessment/Plan: PT requested Code(s): M62.421 - CONTRACTURE OF MUSCLE, RIGHT UPPER ARM (3) Suspected COVID-19 virus infection Assessment/Plan: COVID Suspicion low On RA strict airborne/droplet precautions until resulted Code(s): Z20.828 - CONTACT W AND EXPOSURE TO OTH VIRAL COMMUNICABLE DISEASES (4) Prophylactic measure Assessment/Plan: FEN Fluids: poor PO intake Electrolytes: monitor & replete as needed Nutrition: reg diet DVT moderate risk sq heparin Dispo Maintain as inpatient full code discharge planning tp home-was in SNF and decompenesated mentally Code(s): Z29.9 - ENCOUNTER FOR PROPHYLACTIC MEASURES, UNSPECIFIED (5) Hyponatremia Assessment/Plan: Na 126-hx of hyponatremia in past Fluid restrict to 1000cc free water /day c/w IVF @ 50cc/he renal consultation requested-Dr Saba to see urine lytes pending Code(s): E87.1 - HYPO-OSMOLALITY AND HYPONATREMIA (6) Fall Assessment/Plan: s/p fall HCT negative fall precautions PT requested Code(s): W19.XXXA - UNSPECIFIED FALL, INITIAL ENCOUNTER (7) UTI (urinary tract infection) Assessment/Plan: UCx with LFNB grew enterbacter sensitive to ceftriaxone on last admission c/w ceftriaxone Code(s): N39.0 - URINARY TRACT INFECTION, SITE NOT SPECIFIED (8) Dementia Assessment/Plan: supportive care avoid benzo/seroquel Code(s): F03.90 - UNSPECIFIED DEMENTIA WITHOUT BEHAVIORAL DISTURBANCE (9) Malnutrition Assessment/Plan: as evidenced by muscle/temporal wasting, bony prominences nutritional supplements aviation electronic warfare operator consultation requested Code(s): E46 - UNSPECIFIED PROTEIN-CALORIE MALNUTRITION Visit type - Emergency Visit Emergency Visit: Yes ED Registration Date: 10/09/19 Care time: The patient presented to the Emergency Department on the above date and was hospitalized for further evaluation of their emergent condition. - New Patient This patient is new to me today: Yes Date on this admission: 10/10/19 - Critical Care Critical Care patient: No - Discharge Referral Referred to [facility] No
[2019-10-10 09:03] LABS: HEMATOCRIT 36.9 % (32.4-45.2); MCH 28.4 pg (25.7-33.7); MCHC 32.4 g/dl (32.0-36.0); MEAN CELL VOLUME 87.7 fl (80-96); MEAN PLT VOLUME 7.9 fl (7.5-11.1); PLATELET COUNT 392 K/MM3 (134-434); RBC 4.21 M/mm3 (3.60-5.2); RDW 14.9 % (11.6-15.6); WHITE BLOOD COUNT 6.1 K/mm3 (4.0-10.0)
[2019-10-10 09:41] LABS: BLOOD UREA NITROGEN 7.4 mg/dL (7-18); CALCIUM 9.1 mg/dL (8.5-10.1); CREATININE 0.5 mg/dL (0.55-1.3); MAGNESIUM 2.2 mg/dL (1.8-2.4); POTASSIUM 3.9 mmol/L (3.5-5.1)
--- NOTE | 2019-10-10 10:26 | EKG ---
Test Reason : Blood Pressure : / mmHG Vent. Rate : 069 BPM Atrial Rate : 069 BPM P-R Int : 180 ms QRS Dur : 084 ms QT Int : 392 ms P-R-T Axes : 048 -37 061 degrees QTc Int : 420 ms NORMAL SINUS RHYTHM LEFT AXIS DEVIATION NONSPECIFIC T WAVE ABNORMALITY ABNORMAL ECG WHEN COMPARED WITH ECG OF 22-MAY-2019 01:09, Likely no significant changes Confirmed by Giancarlo Tran ([id number]) on 10/10/2019 10:25:36 AM Referred By: Confirmed By:Giancarlo Tran
[2019-10-10] MEDS ORDERED: HEPARIN NA (PORCINE) 5,000 UNITS/ML 1ML VIAL ONE ×2 (10:50→22:04)
[2019-10-10] MEDS: HEPARIN NA (PORCINE) 5,000 UNITS/ML 1ML VIAL SQ SCH ×2 (11:15→22:19)
--- NOTE | 2019-10-10 13:48 | CON.ID ---
Consult - Alcohol/Substance Use Hx Alcohol Use: No - Smoking History Smoking history: Unknown if ever smoked Have you smoked in the past 12 months: No Aproximately how many cigarettes per day: 0 - Social History Usual Living Arrangement: With Child Home Medications - Allergies Allergies/Adverse Reactions: Allergies Allergy/AdvReac Type Severity Reaction Status Date / Time Sulfa (Sulfonamide Allergy Unknown Verified 10/09/19 13:04 Antibiotics) sulfamethoxazole Allergy Verified 10/09/19 13:04 [From Bactrim] trimethoprim [From Bactrim] Allergy Verified 10/09/19 13:04 midazolam [From Versed] AdvReac Severe SEVERE Verified 10/09/19 13:04 MEMORY LOSS FOR SIX MONTHS AFER RECEIVING Benzodiazepines AdvReac Verified 10/10/19 11:36 Opioids - Morphine Analogues AdvReac Verified 10/09/19 13:04 quetiapine [From Seroquel] AdvReac Verified 10/10/19 11:34 - Home Medications Home Medications: Ambulatory Orders Sennosides [Senna] 2 tab PO HS 10/09/19 Physical Exam Vital Signs: Vital Signs Temperature 97.8 F 10/10/19 06:58 Pulse Rate 66 10/10/19 06:58 Respiratory Rate 16 10/10/19 06:58 Blood Pressure 122/74 10/10/19 06:58 O2 Sat by Pulse Oximetry (%) 98 10/10/19 06:58 Labs: CBC, BMP 10/10/19 07:40 10/10/19 07:40
[2019-10-10] MEDS ORDERED: CEFTRIAXONE 1 GM/50 ML BAG ONE (15:26)
[2019-10-10] MEDS: CEFTRIAXONE 1 GM in DEXTROSE 5%-WATER - 50 ML IVPB SCH (15:27)
[2019-10-10] MEDS ORDERED: MELATONIN 1 MG TABLET PO ONE (22:01)
[2019-10-10] MEDS ORDERED: SENNOSIDES 8.6MG TABLET (FP) PO ONE (22:04)
[2019-10-10] MEDS ORDERED: MELATONIN 5 MG TABLETS ONE (22:04)
[2019-10-10] MEDS ORDERED: SODIUM CHLORIDE 1,000 ML IV SCH (22:15)
[2019-10-10] MEDS: SENNOSIDES 8.6MG TABLET (FP) PO SCH (22:19)
[2019-10-11] MEDS: HEPARIN NA (PORCINE) 5,000 UNITS/ML 1ML VIAL SQ SCH ×2 (09:45→21:00)
[2019-10-11] MEDS: CEFTRIAXONE 1 GM in DEXTROSE 5%-WATER - 50 ML IVPB SCH (09:46)
--- NOTE | 2019-10-11 12:33 | PN ---
Progress Note, Physician History of Present Illness: confused uncooperative - Current Medication List Current Medications: Active Medications Acetaminophen (Tylenol -) 650 mg PO Q4H PRN PRN Reason: MILD PAIN 1-3 Diphenhydramine HCl (Benadryl -) 25 mg PO HS LOGAN Last Admin: 10/10/19 22:19 Dose: Not Given Documented by: Heparin Sodium (Porcine) (Heparin -) 5,000 unit SQ BID LOGAN Last Admin: 10/11/19 09:45 Dose: 5,000 unit Documented by: Ceftriaxone Sodium 1 gm/ (Dextrose) 50 mls @ 100 mls/hr IVPB DAILY LOGAN; Protocol Last Admin: 10/11/19 09:46 Dose: 100 mls/hr Documented by: Sodium Chloride (Normal Saline -) 1,000 mls @ 50 mls/hr IV ASDIR LOGAN Stop: 10/11/19 22:01 Last Admin: 10/10/19 22:20 Dose: 50 mls/hr Documented by: Pneumococcal 13-Valent Conj Vacc (Prevnar 13 Syringe -) 0.5 ml IM .ONCE ONE Stop: 10/09/19 19:30 Senna (Senna -) 2 tab PO HS [facility] Last Admin: 10/10/19 22:19 Dose: 2 tab Documented by: - Objective Vital Signs: Vital Signs Temperature 97.9 F 10/11/19 08:22 Pulse Rate 66 10/11/19 08:22 Respiratory Rate 18 10/11/19 08:22 Blood Pressure 131/67 10/11/19 08:22 O2 Sat by Pulse Oximetry (%) 96 10/11/19 08:22 Constitutional: Yes: Calm, Other (uncooperative) Eyes: Yes: Conjunctiva Clear Cardiovascular: Yes: S1, S2 Respiratory: Yes: Regular, CTA Bilaterally Gastrointestinal: Yes: Normal Bowel Sounds, Soft Musculoskeletal: Yes: WNL Extremities: Yes: Other Wound/Incision: Yes: Other Neurological: Yes: Confusion Psychiatric: Yes: Other Labs: CBC, BMP 10/10/19 07:40 10/10/19 07:40 INR, PTT INR 0.90 (0.83-1.09) 10/09/19 13:30 Assessment/Plan 79 y/o female with dementia admitted post fall post unwitnessed fall dementia hyponatremia uti plan continue abx close watch
--- NOTE | 2019-10-11 12:36 | DS ---
Physical Exam: SUBJECTIVE: Patient seen and examined OBJECTIVE: Vital Signs Period Temp Pulse Resp BP Sys/Rivera Pulse Ox Last 24 Hr 97.2 F-98.5 F 66-73 16-18 111-141/63-76 96-97 PHYSICAL EXAM GENERAL: The patient is awake, alert, and fully oriented, in no acute distress. HEAD: Normal with no signs of trauma. EYES: PERRL, extraocular movements intact, sclera anicteric, conjunctiva clear. ENT: Ears normal, nares patent, oropharynx clear without exudates, moist mucous membranes. NECK: Trachea midline, full range of motion, supple. LUNGS: Breath sounds equal, clear to auscultation bilaterally, no wheezes, no crackles, no accessory muscle use. HEART: Regular rate and rhythm, S1, S2 without murmur, rub or gallop. ABDOMEN: Soft, nontender, nondistended, normoactive bowel sounds, no guarding, no rebound, no hepatosplenomegaly, no masses. EXTREMITIES: 2+ pulses, warm, well-perfused, no edema. NEUROLOGICAL: Cranial nerves II through XII grossly intact. Normal speech, gait not observed. PSYCH: Normal mood, normal affect. SKIN: Warm, dry, normal turgor, no rashes or lesions noted. 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
--- NOTE | 2019-10-11 17:00 | PN ---
Physical Exam: SUBJECTIVE: Patient seen and examined at the bedside. confused and speaking gibberish. when moved, began to get upset with me and her speech was clear. OBJECTIVE: Patient is a 79 year old female with a significant past medical history of dementia, admission earlier this year for urosepsis (enterobacter, ceftriaxone sensitive) p/w unwitnessed fall at home. She has dementia and is unable to contribute to history. Patient was found on the ground by her home health aide and family noted her to be more confused then her baseline. PER SON"S REQUEST - NO BENZOS OR SEROQUEL He uses benadryl at night if pt gets agitated and cannot fall asleep *awaiting today's labs Vital Signs Period Temp Pulse Resp BP Sys/Rivera Pulse Ox Last 24 Hr 97.2 F-98.5 F 57-73 16-18 111-141/62-75 96-97 GENERAL: The patient is awake, agitated. unable to give me any history. spoke gibberish, then speech was clear when she became upset i was auscultating her lungs. HEAD: Normal with no signs of trauma. EYES: PERRL, extraocular movements intact, sclera anicteric, conjunctiva clear. No ptosis. ENT: Ears normal, nares patent, oropharynx clear without exudates NECK: Trachea midline, full range of motion, supple. LUNGS: left base with mild fine crackles. right lung clear HEART: Regular rate and rhythm ABDOMEN: Soft, nontender, nondistended, normoactive bowel sounds EXTREMITIES: no edema. right foot drop, right arm contracted (baseline?) NEUROLOGICAL: gibberish speech/alternating with clear speech. PSYCH: Normal mood, normal affect. SKIN: Warm, dry, normal turgor, no rashes or lesions noted Active Medications Generic Name Dose Route Start Last Admin Trade Name Freq PRN Reason Stop Dose Admin Acetaminophen 650 mg 10/09/19 18:16 Tylenol - PO Q4H PRN MILD PAIN 1-3 Diphenhydramine HCl 25 mg 10/09/19 22:00 10/10/19 22:19 Benadryl - PO Not Given HS LOGAN Heparin Sodium (Porcine) 5,000 unit 10/09/19 22:00 10/11/19 09:45 Heparin - SQ 5,000 unit BID LOGAN Administration Ceftriaxone Sodium 1 gm/ 50 mls @ 100 mls/hr 10/10/19 14:00 10/11/19 09:46 Dextrose IVPB 100 mls/hr DAILY LOGAN Administration Protocol Sodium Chloride 1,000 mls @ 50 mls/hr 10/10/19 22:15 10/10/19 22:20 Normal Saline - IV 10/11/19 22:01 50 mls/hr ASDIR LOGAN Administration Pneumococcal 13-Valent Conj Vacc 0.5 ml 10/09/19 19:29 Prevnar 13 Syringe - IM 10/09/19 19:30 .ONCE ONE Senna 2 tab 10/09/19 22:00 10/10/19 22:19 Senna - PO 2 tab HS LOGAN Administration ASSESSMENT/PLAN: Problem List - Problems (1) Acute metabolic encephalopathy Assessment/Plan: Patient confused above baseline. Head CT negative. being treated for urosepsis, on ceftriaxone. Avoid any benzos, seroquel per family wishes HCT without acute pathology also noted to have hyponatremia, awaiting today's labs seen by neuro for similar presentation earlier this year. will consult neuro. 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 Code(s): E87.1 - HYPO-OSMOLALITY AND HYPONATREMIA (5) Malnutrition Assessment/Plan: monitor intake and output. may need calorie count if not tolerating PO Code(s): E46 - UNSPECIFIED PROTEIN-CALORIE MALNUTRITION (6) Prophylactic measure Code(s): Z29.9 - ENCOUNTER FOR PROPHYLACTIC MEASURES, UNSPECIFIED (7) Suspected COVID-19 virus infection Assessment/Plan: pending serology Code(s): Z20.828 - CONTACT W AND EXPOSURE TO OTH VIRAL COMMUNICABLE DISEASES (8) UTI (urinary tract infection) Assessment/Plan: on ceftriaxone for urine with ecoli Code(s): N39.0 - URINARY TRACT INFECTION, SITE NOT SPECIFIED (9) Creutzfeldt-La disease, unspecified Assessment/Plan: neuro follow up Code(s): A81.00 - CREUTZFELDT-LA DISEASE, UNSPECIFIED (10) DVT prophylaxis Assessment/Plan: heparin tid Code(s): Z29.9 - ENCOUNTER FOR PROPHYLACTIC MEASURES, UNSPECIFIED Visit type - Emergency Visit Emergency Visit: Yes ED Registration Date: 10/09/19 Care time: The patient presented to the Emergency Department on the above date and was hospitalized for further evaluation of their emergent condition. - New Patient This patient is new to me today: Yes Date on this admission: 10/11/19 - Critical Care Critical Care patient: No - Discharge Referral Referred to [facility] No
[2019-10-11 18:38] LABS: BASO % 0.4 % (0-2.0); HEMATOCRIT 37.4 % (32.4-45.2); HEMOGLOBIN 12.3 GM/dL (10.7-15.3); LYMPH % 26.6 % (8-40); MCHC 32.8 g/dl (32.0-36.0); MEAN CELL VOLUME 88.3 fl (80-96); MONO % 6.3 % (3.8-10.2); NEUT % 62.7 % (42.8-82.8); PLATELET COUNT 394 K/MM3 (134-434); RBC 4.24 M/mm3 (3.60-5.2); WHITE BLOOD COUNT 6.5 K/mm3 (4.0-10.0)
[2019-10-11 18:57] LABS: BLOOD UREA NITROGEN 9.2 mg/dL (7-18); CALCIUM 9.3 mg/dL (8.5-10.1); CREATININE 0.5 mg/dL (0.55-1.3); POTASSIUM 3.4 mmol/L (3.5-5.1)
[2019-10-11 19:00] LABS: ALBUMIN 3.2 g/dl (3.4-5.0); BILIRUBIN,TOTAL 0.4 mg/dL (0.2-1); BLOOD UREA NITROGEN 9.4 mg/dL (7-18); CALCIUM 9.5 mg/dL (8.5-10.1); CREATININE 0.5 mg/dL (0.55-1.3); MAGNESIUM 2.1 mg/dL (1.8-2.4); POTASSIUM 3.4 mmol/L (3.5-5.1); TOT PROT 6.8 g/dl (6.4-8.2)
--- NOTE | 2019-10-11 19:07 | CONSULT ---
Consult - text type - Consultation Consultation Note: NEUROLOGY CONSULTATION is greatly appreciated: This 79 yo RH woman with advancing dementia was recently seen in consultation in my office accompanied by her son with whom she lives. At least one year of progressive cognitive and functional decline punctuated by repeated hospitalizations for infections (UTI's), falls, etc. Progressive gait dysfunction for at least 1 year and 6 mos of bedbound with progressive contractures (R>L). No useful speech. Still takes PO. Home with round the clock health aides. Found on floor yesterday AM without signs of bodily or head trauma. Admittedly "at baseline" according to her son. CT of head (reviewed): Moderately severe, diffuse atrophy. 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 JONI: Advanced contractures right arm, knee and ankle, Early contractures on left (Leg>arm). No external head trauma. NEURO: Awake, alert. Follows rare, simple commands. Gibberish sing-song speech +Glabela, snout, suck, grasps. Extremely rigid tone (R>L) without sig. cogwheeling. Grimaces to pinch all fours. IMP: Moderately severe, B/L cerebral dysfunction (OMS, chronic). Most c/w Advanced Alzheimer's. No change from recent office exam. SUGGEST: Continue antibiotics and hydration. Bedside PT Quetiapine 12.5 mg PO q 8 hrs PRN agitation or sleep Check B12 levels. guest services director Thank you very much, Herminio Vargas MD
--- NOTE | 2019-10-11 19:11 | CONSULT ---
Consult Consult Specialty:: Nephrology Reason for Consultation:: hyponatremia - History of Present Illness Chief Complaint: s/p fall History of Present Illness: Pt is a 79 year old female with pmhx of dementia and uti who presents after a fall. She was found to have hyponatremia. She was started on fluids and sodium normalized. SHe is unable to give history. She has not had any recent fevers or chills. Her mental status has been declining over the last years. - History Source History Provided By: Family Member - Past Medical History KINDERGARTNER: Yes: Dementia - Alcohol/Substance Use Hx Alcohol Use: No - Smoking History Smoking history: Unknown if ever smoked Have you smoked in the past 12 months: No Aproximately how many cigarettes per day: 0 - Social History Usual Living Arrangement: With Child Home Medications - Allergies Allergies/Adverse Reactions: Allergies Allergy/AdvReac Type Severity Reaction Status Date / Time Sulfa (Sulfonamide Allergy Unknown Verified 10/09/19 13:04 Antibiotics) sulfamethoxazole Allergy Verified 10/09/19 13:04 [From Bactrim] trimethoprim [From Bactrim] Allergy Verified 10/09/19 13:04 midazolam [From Versed] AdvReac Severe SEVERE Verified 10/09/19 13:04 MEMORY LOSS FOR SIX MONTHS AFER RECEIVING Benzodiazepines AdvReac Verified 10/10/19 11:36 Opioids - Morphine Analogues AdvReac Verified 10/09/19 13:04 quetiapine [From Seroquel] AdvReac Verified 10/10/19 11:34 - Home Medications Home Medications: Ambulatory Orders Sennosides [Senna] 2 tab PO HS 10/09/19 Family Medical History Family History: Unable to Obtain Review of Systems Unable to obtain ROS, reason: lethargy Physical Exam Vital Signs: Vital Signs Temperature 99.0 F 10/11/19 17:00 Pulse Rate 68 10/11/19 17:00 Respiratory Rate 20 10/11/19 17:00 Blood Pressure 117/72 10/11/19 17:00 O2 Sat by Pulse Oximetry (%) 96 10/11/19 08:22 Constitutional: Yes: Calm Eyes: Yes: Conjunctiva Clear Cardiovascular: Yes: S1, S2 Respiratory: Yes: CTA Bilaterally Gastrointestinal: Yes: Soft Renal/: Yes: Incontinence Musculoskeletal: Yes: Muscle Weakness Edema: No Neurological: Yes: Lethargy Labs: CBC, BMP 10/11/19 17:45 07/07/20 17:45 Imaging - Results Cat Scan: Report Reviewed Assessment/Plan Current Medications Generic Name Dose Route Start Last Admin Trade Name Faustino PRN Reason Stop Dose Admin Acetaminophen 650 mg 10/09/19 18:16 Tylenol - PO Q4H PRN MILD PAIN 1-3 Diphenhydramine HCl 25 mg 10/09/19 22:00 10/10/19 22:19 Benadryl - PO Not Given HS LOGAN Heparin Sodium (Porcine) 5,000 unit 10/09/19 22:00 10/11/19 09:45 Heparin - SQ 5,000 unit BID LOGAN Administration Ceftriaxone Sodium 1 gm/ 50 mls @ 100 mls/hr 10/10/19 14:00 10/11/19 09:46 Dextrose IVPB 100 mls/hr DAILY LOGAN Administration Protocol Sodium Chloride 1,000 mls @ 50 mls/hr 10/10/19 22:15 10/10/19 22:20 Normal Saline - IV 10/11/19 22:01 50 mls/hr ASDIR LOGAN Administration Pneumococcal 13-Valent Conj Vacc 0.5 ml 10/09/19 19:29 Prevnar 13 Syringe - IM 10/09/19 19:30 .ONCE ONE Senna 2 tab 10/09/19 22:00 10/10/19 22:19 Senna - PO 2 tab HS LOGAN Administration Laboratory Tests 10/09/19 10/09/19 10/09/19 13:30 14:15 18:10 Sodium 126 L Potassium Creatine Kinase Ur Specific [place] 1.007 L COVID-19 (KELLIE) Pending 10/10/19 10/11/19 10/11/19 07:40 17:45 17:45 Sodium 133 L 135 L 135 L Potassium 3.4 L Creatine Kinase 43 Ur Specific [place] COVID-19 (KELLIE) Impression 1. hyponatremia 2. dementia 3. uti 4. hypokalemia Plan - sodium improved with saline - can decrease rate of fluids - repeat labs in am - called and spoke to son - replace potassium - check mag
[2019-10-11] MEDS: POTASSIUM CHLORIDE 10 MEQ in SODIUM CHLORIDE 1,000 ML IVPB SCH (19:48)
[2019-10-11] MEDS: POTASSIUM CHLORIDE ORAL LIQUID 20 MEQ/15 ML PO ONE ×2 (19:48→20:02)
[2019-10-11] MEDS: diphenhydrAMINE HCL 25 MG CAPSULE (FP) PO SCH (21:00)
[2019-10-11] MEDS: SENNOSIDES 8.6MG TABLET (FP) PO SCH (21:00)
[2019-10-12] MEDS: HEPARIN NA (PORCINE) 5,000 UNITS/ML 1ML VIAL SQ SCH ×3 (09:16→21:56)
[2019-10-12] MEDS: CEFTRIAXONE 1 GM in DEXTROSE 5%-WATER - 50 ML IVPB SCH (09:18)
[2019-10-12 11:48] LABS: BASO % 1.2 % (0-2.0); EOS % 3.5 % (0-4.5); HEMOGLOBIN 11.5 GM/dL (10.7-15.3); LYMPH % 18.7 % (8-40); MCH 28.5 pg (25.7-33.7); MCHC 32.7 g/dl (32.0-36.0); MEAN CELL VOLUME 86.9 fl (80-96); MEAN PLT VOLUME 7.8 fl (7.5-11.1); MONO % 8.6 % (3.8-10.2); PLATELET COUNT 387 K/MM3 (134-434); RBC 4.03 M/mm3 (3.60-5.2); RDW 15.2 % (11.6-15.6); WHITE BLOOD COUNT 6.9 K/mm3 (4.0-10.0)
--- NOTE | 2019-10-12 12:07 | PN ---
Progress Note, Physician History of Present Illness: confused calm now - Current Medication List Current Medications: Active Medications Acetaminophen (Tylenol -) 650 mg PO Q4H PRN PRN Reason: MILD PAIN 1-3 Diphenhydramine HCl (Benadryl -) 25 mg PO HS ON [facility] OF [facility] Last Admin: 10/11/19 21:00 Dose: 25 mg Documented by: Heparin Sodium (Porcine) (Heparin -) 5,000 unit SQ BID ON LICENSE OF [facility] Last Admin: 10/12/19 09:16 Dose: 5,000 unit Documented by: Ceftriaxone Sodium 1 gm/ (Dextrose) 50 mls @ 100 mls/hr IVPB DAILY ON LICENSE OF [facility]; Protocol Last Admin: 10/12/19 09:18 Dose: 100 mls/hr Documented by: Potassium Chloride 10 meq/ (Sodium Chloride) 1,005 mls @ 42 mls/hr IVPB Q24H ON LICENSE OF [facility] Last Admin: 10/11/19 19:48 Dose: 42 mls/hr Documented by: Pneumococcal 13-Valent Conj Vacc (Prevnar 13 Syringe -) 0.5 ml IM .ONCE ONE Stop: 10/09/19 19:30 Senna (Senna -) 2 tab PO [facility] Last Admin: 10/11/19 21:00 Dose: 2 tab Documented by: - Objective Vital Signs: Vital Signs Temperature 98.5 F 10/12/19 08:40 Pulse Rate 67 10/12/19 08:40 Respiratory Rate 18 10/12/19 08:42 Blood Pressure 119/66 10/12/19 08:40 O2 Sat by Pulse Oximetry (%) 98 10/12/19 08:42 Constitutional: Yes: No Distress, Calm Cardiovascular: Yes: S1, S2 Respiratory: Yes: Regular, CTA Bilaterally Gastrointestinal: Yes: Normal Bowel Sounds, Soft Musculoskeletal: Yes: WNL Extremities: Yes: WNL Neurological: Yes: Alert, Confusion, Other Psychiatric: Yes: Alert Labs: CBC, BMP 10/12/19 11:20 INR, PTT INR 0.90 (0.83-1.09) 10/09/19 13:30 Assessment/Plan 79 y/o female with dementia admitted post fall post unwitnessed fall dementia hyponatremia uti plan continue abx close watch will wait for final plan nutrition
[2019-10-12 12:10] LABS: ALBUMIN 2.8 g/dl (3.4-5.0); BILIRUBIN,TOTAL 0.2 mg/dL (0.2-1); BLOOD UREA NITROGEN 12.5 mg/dL (7-18); CALCIUM 9.2 mg/dL (8.5-10.1); CREATININE 0.5 mg/dL (0.55-1.3); MAGNESIUM 2.1 mg/dL (1.8-2.4); POTASSIUM 3.7 mmol/L (3.5-5.1); TOT PROT 6.2 g/dl (6.4-8.2)
--- NOTE | 2019-10-12 16:04 | PN ---
Physical Exam: SUBJECTIVE: Patient seen and examined OBJECTIVE: Patient is a 79 year old female with a significant past medical history of dementia, admission earlier this year for urosepsis (enterobacter, ceftriaxone sensitive) p/w unwitnessed fall at home. She has dementia and is unable to contribute to history. Patient was found on the ground by her home health aide and family noted her to be more confused then her baseline. PER SON"S REQUEST - NO BENZOS OR SEROQUEL He uses benadryl at night if pt gets agitated and cannot fall asleep Vital Signs Period Temp Pulse Resp BP Sys/Rivera Pulse Ox Last 24 Hr 97.6 F-99.0 F 67-74 18-20 110-132/59-72 98-98 GENERAL: The patient is awake, agitated. unable to give me any history. spoke gibberish, then speech was clear HEAD: Normal with no signs of trauma. EYES: PERRL, extraocular movements intact, sclera anicteric, conjunctiva clear. No ptosis. ENT: Ears normal, nares patent, oropharynx clear without exudates NECK: Trachea midline, full range of motion, supple. LUNGS: left base with mild fine crackles. right lung clear HEART: Regular rate and rhythm ABDOMEN: Soft, nontender, nondistended, normoactive bowel sounds EXTREMITIES: no edema. right foot drop, right arm contracted (baseline?) NEUROLOGICAL: gibberish speech/alternating with clear speech. PSYCH: Normal mood, normal affect. SKIN: Warm, dry, normal turgor, no rashes or lesions noted Laboratory Results - last 24 hr 10/11/19 10/11/19 10/11/19 17:45 17:45 17:45 WBC 6.5 RBC 4.24 Hgb 12.3 Hct 37.4 MCV 88.3 MCH 29.0 MCHC 32.8 RDW 15.0 Plt Count 394 MPV 8.0 Absolute Neuts (auto) 4.1 Neutrophils % 62.7 Lymphocytes % 26.6 D Monocytes % 6.3 Eosinophils % 4.0 Basophils % 0.4 Nucleated RBC % 0 Sodium 135 L 135 L Potassium 3.4 L 3.4 L Chloride 100 100 Carbon Dioxide 25 23 Anion Gap 10 11 BUN 9.2 9.4 Creatinine 0.5 L 0.5 L Est GFR (CKD-EPI)AfAm 106.69 106.69 Est GFR (CKD-EPI)NonAf 92.05 92.05 Random Glucose 139 H 145 H Lactic Acid Calcium 9.3 9.5 Magnesium 2.1 Total Bilirubin 0.4 AST 14 L ALT 14 Alkaline Phosphatase 63 Creatine Kinase 43 Total Protein 6.8 Albumin 3.2 L Vitamin B12 10/11/19 10/12/19 10/12/19 17:45 11:20 11:20 WBC 6.9 RBC 4.03 Hgb 11.5 Hct 35.0 MCV 86.9 MCH 28.5 MCHC 32.7 RDW 15.2 Plt Count 387 MPV 7.8 Absolute Neuts (auto) 4.7 Neutrophils % 68.0 Lymphocytes % 18.7 D Monocytes % 8.6 Eosinophils % 3.5 Basophils % 1.2 Nucleated RBC % 0 Sodium 136 Potassium 3.7 Chloride 103 Carbon Dioxide 24 Anion Gap 9 BUN 12.5 Creatinine 0.5 L Est GFR (CKD-EPI)AfAm 106.69 Est GFR (CKD-EPI)NonAf 92.05 Random Glucose 144 H Lactic Acid 1.0 Calcium 9.2 Magnesium 2.1 Total Bilirubin 0.2 AST 10 L ALT 14 Alkaline Phosphatase 60 Creatine Kinase Total Protein 6.2 L Albumin 2.8 L Vitamin B12 308 Active Medications Generic Name Dose Route Start Last Admin Trade Name Freq PRN Reason Stop Dose Admin Acetaminophen 650 mg 10/09/19 18:16 Tylenol - PO Q4H PRN MILD PAIN 1-3 Diphenhydramine HCl 25 mg 10/09/19 22:00 10/11/19 21:00 Benadryl - PO 25 mg HS LOGAN Administration Heparin Sodium (Porcine) 5,000 unit 10/09/19 22:00 10/12/19 09:16 Heparin - SQ 5,000 unit BID LOGAN Administration Ceftriaxone Sodium 1 gm/ 50 mls @ 100 mls/hr 10/10/19 14:00 10/12/19 09:18 Dextrose IVPB 100 mls/hr DAILY LOGAN Administration Protocol Potassium Chloride 10 meq/ 1,005 mls @ 42 mls/hr 10/11/19 19:30 10/11/19 19:48 Sodium Chloride IVPB 42 mls/hr Q24H LOGAN Administration Pneumococcal 13-Valent Conj Vacc 0.5 ml 10/09/19 19:29 Prevnar 13 Syringe - IM 10/09/19 19:30 .ONCE ONE Senna 2 tab 10/09/19 22:00 10/11/19 21:00 Senna - PO 2 tab HS LOGAN Administration ASSESSMENT/PLAN: Problem List - Problems (1) Acute metabolic encephalopathy Assessment/Plan: Patient confused above baseline. Head CT negative. per neuro, most c/w Advanced Alzheimer's. being treated for urosepsis, on ceftriaxone. 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 may need calorie count if not tolerating PO Code(s): E46 - UNSPECIFIED PROTEIN-CALORIE MALNUTRITION (6) Prophylactic measure Code(s): Z29.9 - ENCOUNTER FOR PROPHYLACTIC MEASURES, UNSPECIFIED (7) Suspected COVID-19 virus infection Assessment/Plan: pending serology Code(s): Z20.828 - CONTACT W AND EXPOSURE TO OTH VIRAL COMMUNICABLE DISEASES (8) UTI (urinary tract infection) Assessment/Plan: on ceftriaxone for urine with ecoli Code(s): N39.0 - URINARY TRACT INFECTION, SITE NOT SPECIFIED (9) Creutzfeldt-La disease, unspecified Assessment/Plan: neuro follow up Code(s): A81.00 - CREUTZFELDT-LA DISEASE, UNSPECIFIED (10) DVT prophylaxis Assessment/Plan: heparin tid Code(s): Z29.9 - ENCOUNTER FOR PROPHYLACTIC MEASURES, UNSPECIFIED Visit type - Emergency Visit Emergency Visit: Yes ED Registration Date: 10/09/19 Care time: The patient presented to the Emergency Department on the above date and was hospitalized for further evaluation of their emergent condition. - New Patient This patient is new to me today: No - Critical Care Critical Care patient: No - Discharge Referral Referred to [facility] Med P[facility] No
--- NOTE | 2019-10-12 20:01 | PN ---
Progress Note, Physician History of Present Illness: Pt seen and examined at bedside. She is awake today. She is speaking but her words do not make sense. - Current Medication List Current Medications: Active Medications Acetaminophen (Tylenol -) 650 mg PO Q4H PRN PRN Reason: MILD PAIN 1-3 Diphenhydramine HCl (Benadryl -) 25 mg PO HS [facility] Last Admin: 10/11/19 21:00 Dose: 25 mg Documented by: Heparin Sodium (Porcine) (Heparin -) 5,000 unit SQ BID [facility] Last Admin: 10/12/19 09:16 Dose: 5,000 unit Documented by: Ceftriaxone Sodium 1 gm/ (Dextrose) 50 mls @ 100 mls/hr IVPB DAILY [facility]; Protoc ol Last Admin: 10/12/19 09:18 Dose: 100 mls/hr Documented by: Potassium Chloride 10 meq/ (Sodium Chloride) 1,005 mls @ 42 mls/hr IVPB Q24H [facility] Last Admin: 10/11/19 19:48 Dose: 42 mls/hr Documented by: Pneumococcal 13-Valent Conj Vacc (Prevnar 13 Syringe -) 0.5 ml IM .ONCE ONE Stop: 10/09/19 19:30 Senna (Senna -) 2 tab PO HS [facility] Last Admin: 10/11/19 21:00 Dose: 2 tab Documented by: - Objective Vital Signs: Vital Signs Temperature 98.4 F 10/12/19 18:00 Pulse Rate 64 10/12/19 18:00 Respiratory Rate 18 10/12/19 18:00 Blood Pressure 109/64 10/12/19 18:00 O2 Sat by Pulse Oximetry (%) 98 10/12/19 08:42 Constitutional: Yes: Calm Eyes: Yes: Conjunctiva Clear HENT: Yes: Atraumatic Neck: Yes: Supple Cardiovascular: Yes: S1, S2 Respiratory: Yes: CTA Bilaterally Gastrointestinal: Yes: Soft Genitourinary: Yes: Incontinence Extremities: Yes: WNL Edema: No Neurological: Yes: Confusion Labs: CBC, BMP 10/12/19 11:20 10/12/19 11:20 INR, PTT INR 0.90 (0.83-1.09) 10/09/19 13:30 Assessment/Plan Current Medications Generic Name Dose Route Start Last Admin Trade Name Freq PRN Reason Stop Dose Admin Acetaminophen 650 mg 10/09/19 18:16 Tylenol - PO Q4H PRN MILD PAIN 1-3 Diphenhydramine HCl 25 mg 10/09/19 22:00 10/11/19 21:00 Benadryl - PO 25 mg HS [facility] Administration Heparin Sodium (Porcine) 5,000 unit 10/09/19 22:00 10/12/19 09:16 Heparin - SQ 5,000 unit BID [facility] Administration Ceftriaxone Sodium 1 gm/ 50 mls @ 100 mls/hr 10/10/19 14:00 10/12/19 09:18 Dextrose IVPB 100 mls/hr DAILY [facility] Administration Protocol Potassium Chloride 10 meq/ 1,005 mls @ 42 mls/hr 10/11/19 19:30 10/11/19 19:48 Sodium Chloride IVPB 42 mls/hr Q24H [facility] Administration Pneumococcal 13-Valent Conj Vacc 0.5 ml 10/09/19 19:29 Prevnar 13 Syringe - IM 10/09/19 19:30 .ONCE ONE Senna 2 tab 10/09/19 22:00 10/11/19 21:00 Senna - PO 2 tab HS [facility] Administration Impression 1. hyponatremia 2. dementia 3. uti 4. hypokalemia Plan - sodium normal - monitor mental status - can decrease fluids further - encourage po intake - cpk normal - mag level is normal - potassium stable
[2019-10-12] MEDS: POTASSIUM CHLORIDE 10 MEQ in SODIUM CHLORIDE 1,000 ML IVPB SCH ×2 (20:05→20:24)
[2019-10-12] MEDS: diphenhydrAMINE HCL 25 MG CAPSULE (FP) PO SCH ×2 (21:24→21:31)
[2019-10-12] MEDS: SENNOSIDES 8.6MG TABLET (FP) PO SCH ×2 (21:24→21:32)
[2019-10-13 08:11] LABS: EOS % 4.8 % (0-4.5); HEMATOCRIT 33.9 % (32.4-45.2); HEMOGLOBIN 11.1 GM/dL (10.7-15.3); MCHC 32.9 g/dl (32.0-36.0); MEAN CELL VOLUME 88.2 fl (80-96); MEAN PLT VOLUME 7.9 fl (7.5-11.1); MONO % 8.9 % (3.8-10.2); NEUT % 65.3 % (42.8-82.8); PLATELET COUNT 382 K/MM3 (134-434); RBC 3.84 M/mm3 (3.60-5.2); RDW 15.3 % (11.6-15.6); WHITE BLOOD COUNT 6.2 K/mm3 (4.0-10.0)
[2019-10-13 08:29] LABS: ALBUMIN 2.8 g/dl (3.4-5.0); BILIRUBIN,TOTAL 0.6 mg/dL (0.2-1); BLOOD UREA NITROGEN 11.8 mg/dL (7-18); CALCIUM 8.9 mg/dL (8.5-10.1); CREATININE 0.5 mg/dL (0.55-1.3); POTASSIUM 4.2 mmol/L (3.5-5.1); TOT PROT 6.1 g/dl (6.4-8.2)
[2019-10-13] MEDS: CEFTRIAXONE 1 GM in DEXTROSE 5%-WATER - 50 ML IVPB SCH (10:27)
[2019-10-13] MEDS: HEPARIN NA (PORCINE) 5,000 UNITS/ML 1ML VIAL SQ SCH ×2 (10:27→21:52)
--- NOTE | 2019-10-13 11:55 | PN ---
Progress Note, Physician History of Present Illness: confusion persists - Current Medication List Current Medications: Active Medications Acetaminophen (Tylenol -) 650 mg PO Q4H PRN PRN Reason: MILD PAIN 1-3 Diphenhydramine HCl (Benadryl -) 25 mg PO HS [facility] Last Admin: 10/12/19 21:31 Dose: Not Given Documented by: Heparin Sodium (Porcine) (Heparin -) 5,000 unit SQ BID [facility] Last Admin: 10/13/19 10:27 Dose: 5,000 unit Documented by: Ceftriaxone Sodium 1 gm/ (Dextrose) 50 mls @ 100 mls/hr IVPB DAILY [facility]; Protocol Last Admin: 10/13/19 10:27 Dose: 100 mls/hr Documented by: Potassium Chloride 10 meq/ (Sodium Chloride) 1,005 mls @ 35 mls/hr IVPB Q24H [facility] Last Admin: 10/12/19 20:24 Dose: 35 mls/hr Documented by: Pneumococcal 13-Valent Conj Vacc (Prevnar 13 Syringe -) 0.5 ml IM .ONCE ONE Stop: 10/09/19 19:30 Senna (Senna -) 2 tab PO [facility] Last Admin: 10/12/19 21:32 Dose: Not Given Documented by: - Objective Vital Signs: Vital Signs Temperature 98.1 F 10/13/19 10:00 Pulse Rate 69 10/13/19 10:00 Respiratory Rate 20 10/13/19 10:00 Blood Pressure 133/72 10/13/19 10:00 O2 Sat by Pulse Oximetry (%) 95 10/12/19 21:00 Constitutional: Yes: Calm, Mild Distress Eyes: Yes: Conjunctiva Clear HENT: Yes: Atraumatic Neck: Yes: Supple, Trachea Midline Cardiovascular: Yes: S1, S2 Respiratory: Yes: Regular, CTA Bilaterally Gastrointestinal: Yes: Normal Bowel Sounds, Soft Musculoskeletal: Yes: WNL Extremities: Yes: WNL Neurological: Yes: Alert, Confusion Labs: CBC, BMP 10/13/19 07:29 10/13/19 07:29 INR, PTT INR 0.90 (0.83-1.09) 10/09/19 13:30 Assessment/Plan 79 y/o female with dementia admitted post fall post unwitnessed fall dementia hyponatremia uti plan continue abx close watch will wait for final plan nutrition will deescalte
--- NOTE | 2019-10-13 15:22 | PN ---
Progress Note, Physician History of Present Illness: Pt seen and examined. No change in status. - Current Medication List Current Medications: Active Medications Acetaminophen (Tylenol -) 650 mg PO Q4H PRN PRN Reason: MILD PAIN 1-3 Diphenhydramine HCl (Benadryl -) 25 mg PO HS [facility] Last Admin: 10/12/19 21:31 Dose: Not Given Documented by: Heparin Sodium (Porcine) (Heparin -) 5,000 unit SQ BID [facility] Last Admin: 10/13/19 10:27 Dose: 5,000 unit Documented by: Ceftriaxone Sodium 1 gm/ (Dextrose) 50 mls @ 100 mls/hr IVPB DAILY [facility]; Protocol Last Admin: 10/13/19 10:27 Dose: 100 mls/hr Documented by: Potassium Chloride 10 meq/ (Sodium Chloride) 1,005 mls @ 35 mls/hr IVPB Q24H [facility] Last Admin: 10/12/19 20:24 Dose: 35 mls/hr Documented by: Pneumococcal 13-Valent Conj Vacc (Prevnar 13 Syringe -) 0.5 ml IM .ONCE ONE Stop: 10/09/19 19:30 Senna (Senna -) 2 tab PO [facility] Last Admin: 10/12/19 21:32 Dose: Not Given Documented by: - Objective Vital Signs: Vital Signs Temperature 97.0 F L 10/13/19 14:00 Pulse Rate 80 10/13/19 14:00 Respiratory Rate 18 10/13/19 14:00 Blood Pressure 136/82 10/13/19 14:00 O2 Sat by Pulse Oximetry (%) 96 10/13/19 09:00 Constitutional: Yes: Calm Eyes: Yes: Conjunctiva Clear HENT: Yes: Atraumatic Neck: Yes: Supple Cardiovascular: Yes: S1, S2 Respiratory: Yes: CTA Bilaterally Gastrointestinal: Yes: Soft Genitourinary: Yes: Incontinence Musculoskeletal: Yes: Muscle Weakness Edema: No Neurological: Yes: Confusion Labs: CBC, BMP 10/13/19 07:29 10/13/19 07:29 INR, PTT INR 0.90 (0.83-1.09) 10/09/19 13:30 Assessment/Plan Current Medications Generic Name Dose Route Start Last Admin Trade Name Freq PRN Reason Stop Dose Admin Acetaminophen 650 mg 10/09/19 18:16 Tylenol - PO Q4H PRN MILD PAIN 1-3 Diphenhydramine HCl 25 mg 10/09/19 22:00 10/12/19 21:31 Benadryl - PO Not Given HS [facility] Heparin Sodium (Porcine) 5,000 unit 10/09/19 22:00 10/13/19 10:27 Heparin - SQ 5,000 unit BID [facility] Administration Ceftriaxone Sodium 1 gm/ 50 mls @ 100 mls/hr 10/10/19 14:00 10/13/19 10:27 Dextrose IVPB 100 mls/hr DAILY [facility] Administration Protocol Potassium Chloride 10 meq/ 1,005 mls @ 35 mls/hr 10/12/19 20:01 10/12/19 20:24 Sodium Chloride IVPB 35 mls/hr Q24H [facility] Administration Pneumococcal 13-Valent Conj Vacc 0.5 ml 10/09/19 19:29 Prevnar 13 Syringe - IM 10/09/19 19:30 .ONCE ONE Senna 2 tab 10/09/19 22:00 10/12/19 21:32 Senna - PO Not Given HS [facility] Impression 1. hyponatremia 2. dementia 3. uti 4. hypokalemia Plan - sodium normal - can d/c fluids - pt requires one to one feeds - monitor lytes off of fluids - potassium stable
--- NOTE | 2019-10-13 16:58 | PN ---
Physical Exam: SUBJECTIVE: Patient seen and examined OBJECTIVE: Patient is a 79 year old female with a significant past medical history of dementia, admission earlier this year for urosepsis (enterobacter, ceftriaxone sensitive) p/w unwitnessed fall at home. She has dementia and is unable to contribute to history. Patient was found on the ground by her home health aide and family noted her to be more confused then her baseline. 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 discussed with son. Vital Signs Period Temp Pulse Resp BP Sys/Rivera Pulse Ox Last 24 Hr 97.0 F-98.4 F 62-80 18-22 109-136/60-82 95-96 GENERAL: The patient is awake, confused. spoke gibberish, then speech was clear HEAD: Normal with no signs of trauma. EYES: PERRL, extraocular movements intact, sclera anicteric, conjunctiva clear. No ptosis. ENT: Ears normal, nares patent, oropharynx clear without exudates NECK: Trachea midline, full range of motion, supple. LUNGS: left base with mild fine crackles. right lung clear HEART: Regular rate and rhythm ABDOMEN: Soft, nontender, nondistended, normoactive bowel sounds EXTREMITIES: no edema. right foot drop, right arm contracted (baseline?) NEUROLOGICAL: gibberish speech/alternating with clear speech. PSYCH: Normal mood, normal affect. SKIN: Warm, dry, normal turgor, no rashes or lesions noted 10/09/19 10/13/19 10/13/19 18:10 07:29 07:29 WBC 6.2 RBC 3.84 Hgb 11.1 Hct 33.9 MCV 88.2 MCH 29.0 MCHC 32.9 RDW 15.3 Plt Count 382 MPV 7.9 Absolute Neuts (auto) 4.1 Neutrophils % 65.3 Lymphocytes % 20.0 Monocytes % 8.9 Eosinophils % 4.8 H Basophils % 1.0 Nucleated RBC % 0 Sodium 137 Potassium 4.2 Chloride 106 Carbon Dioxide 25 Anion Gap 6 L BUN 11.8 Creatinine 0.5 L Est GFR (CKD-EPI)AfAm 106.69 Est GFR (CKD-EPI)NonAf 92.05 Random Glucose 95 Calcium 8.9 Magnesium 2.0 Total Bilirubin 0.6 AST 12 L ALT 14 Alkaline Phosphatase 60 Total Protein 6.1 L Albumin 2.8 L COVID-19 (KELLIE) Not detected Active Medications Generic Name Dose Route Start Last Admin Trade Name Freq PRN Reason Stop Dose Admin Acetaminophen 650 mg 10/09/19 18:16 Tylenol - PO Q4H PRN MILD PAIN 1-3 Diphenhydramine HCl 25 mg 10/09/19 22:00 10/12/19 21:31 Benadryl - PO Not Given HS [facility] Heparin Sodium (Porcine) 5,000 unit 10/09/19 22:00 10/13/19 10:27 Heparin - SQ 5,000 unit BID [facility] Administration Ceftriaxone Sodium 1 gm/ 50 mls @ 100 mls/hr 10/10/19 14:00 10/13/19 10:27 Dextrose IVPB 100 mls/hr DAILY [facility] Administration Protocol Potassium Chloride 10 meq/ 1,005 mls @ 35 mls/hr 10/12/19 20:01 10/12/19 20:24 Sodium Chloride IVPB 35 mls/hr Q24H [facility] Administration Pneumococcal 13-Valent Conj Vacc 0.5 ml 10/09/19 19:29 Prevnar 13 Syringe - IM 10/09/19 19:30 .ONCE ONE Senna 2 tab 10/09/19 22:00 10/12/19 21:32 Senna - PO Not Given HS [facility] ASSESSMENT/PLAN: Problem List - Problems (1) Acute metabolic encephalopathy Assessment/Plan: Patient confused and appears to be close to her baseline. Head CT negative. per neuro, most c/w Advanced Alzheimer's. being treated for urosepsis, on ceftriaxone. 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 may need calorie count if not tolerating PO Code(s): E46 - UNSPECIFIED PROTEIN-CALORIE MALNUTRITION (6) Prophylactic measure Code(s): Z29.9 - ENCOUNTER FOR PROPHYLACTIC MEASURES, UNSPECIFIED (7) Suspected COVID-19 virus infection Assessment/Plan: negative Code(s): Z20.828 - CONTACT W AND EXPOSURE TO OTH VIRAL COMMUNICABLE DISEASES (8) UTI (urinary tract infection) Assessment/Plan: on ceftriaxone for urine with ecoli Code(s): N39.0 - URINARY TRACT INFECTION, SITE NOT SPECIFIED (9) Creutzfeldt-La disease, unspecified Assessment/Plan: neuro follow up Code(s): A81.00 - CREUTZFELDT-LA DISEASE, UNSPECIFIED (10) DVT prophylaxis Assessment/Plan: heparin tid Code(s): Z29.9 - ENCOUNTER FOR PROPHYLACTIC MEASURES, UNSPECIFIED Visit type - Emergency Visit Emergency Visit: Yes ED Registration Date: 10/09/19 Care time: The patient presented to the Emergency Department on the above date and was hospitalized for further evaluation of their emergent condition. - New Patient This patient is new to me today: No - Critical Care Critical Care patient: No - Discharge Referral Referred to [facility] No
[2019-10-13] MEDS ORDERED: PNEUMOC 13-VAL CONJ-DIP CRM/PF 0.5 ML DISP.SYRIN IM ONE (19:29)
[2019-10-13] MEDS: diphenhydrAMINE HCL 25 MG CAPSULE (FP) PO SCH (21:51)
[2019-10-13] MEDS: SENNOSIDES 8.6MG TABLET (FP) PO SCH (21:51)
[2019-10-13] MEDS: POTASSIUM CHLORIDE 10 MEQ in SODIUM CHLORIDE 1,000 ML IVPB SCH (22:08)
[2019-10-14] MEDS: CEFUROXIME AXETIL 500 MG TABLET PO SCH ×2 (09:45→21:31)
[2019-10-14] MEDS: HEPARIN NA (PORCINE) 5,000 UNITS/ML 1ML VIAL SQ SCH ×2 (09:45→21:31)
--- NOTE | 2019-10-14 11:01 | PN ---
Progress Note, Physician History of Present Illness: stable no new issues still with confusion - Current Medication List Current Medications: Active Medications Acetaminophen (Tylenol -) 650 mg PO Q4H PRN PRN Reason: MILD PAIN 1-3 Cefuroxime Axetil (Ceftin -) 500 mg PO BID [facility] Last Admin: 10/14/19 09:45 Dose: 500 mg Documented by: Diphenhydramine HCl (Benadryl -) 25 mg PO [facility] Last Admin: 10/13/19 21:51 Dose: 25 mg Documented by: Heparin Sodium (Porcine) (Heparin -) 5,000 unit SQ BID [facility] Last Admin: 10/14/19 09:45 Dose: 5,000 unit Documented by: Potassium Chloride 10 meq/ (Sodium Chloride) 1,005 mls @ 35 mls/hr IVPB Q24H [facility] Last Admin: 10/13/19 22:08 Dose: 35 mls/hr Documented by: Senna (Senna -) 2 tab PO [facility] Last Admin: 10/13/19 21:51 Dose: 2 tab Documented by: - Objective Vital Signs: Vital Signs Temperature 98.5 F 10/14/19 09:03 Pulse Rate 100 H 10/14/19 09:03 Respiratory Rate 20 10/14/19 09:03 Blood Pressure 128/74 10/14/19 09:03 O2 Sat by Pulse Oximetry (%) 96 10/13/19 21:00 Constitutional: Yes: No Distress, Calm Cardiovascular: Yes: S1, S2 Respiratory: Yes: Regular, CTA Bilaterally Musculoskeletal: Yes: WNL Extremities: Yes: WNL Neurological: Yes: Alert, Confusion Labs: CBC, BMP 10/13/19 07:29 10/13/19 07:29 INR, PTT INR 0.90 (0.83-1.09) 10/09/19 13:30 Assessment/Plan 79 y/o female with dementia admitted post fall post unwitnessed fall dementia hyponatremia uti plan can stop abx rest as per the team
--- NOTE | 2019-10-14 14:32 | PN ---
Progress Note, Physician History of Present Illness: Pt remains confused. - Current Medication List Current Medications: Active Medications Acetaminophen (Tylenol -) 650 mg PO Q4H PRN PRN Reason: MILD PAIN 1-3 Cefuroxime Axetil (Ceftin -) 500 mg PO BID [facility] Last Admin: 10/14/19 09:45 Dose: 500 mg Documented by: Diphenhydramine HCl (Benadryl -) 25 mg PO [facility] Last Admin: 10/13/19 21:51 Dose: 25 mg Documented by: Heparin Sodium (Porcine) (Heparin -) 5,000 unit SQ BID [facility] Last Admin: 10/14/19 09:45 Dose: 5,000 unit Documented by: Potassium Chloride 10 meq/ (Sodium Chloride) 1,005 mls @ 35 mls/hr IVPB Q24H [facility] Last Admin: 10/13/19 22:08 Dose: 35 mls/hr Documented by: Senna (Senna -) 2 tab PO [facility] Last Admin: 10/13/19 21:51 Dose: 2 tab Documented by: - Objective Vital Signs: Vital Signs Temperature 97.8 F 10/14/19 14:00 Pulse Rate 82 10/14/19 14:00 Respiratory Rate 20 10/14/19 14:00 Blood Pressure 115/64 10/14/19 14:00 O2 Sat by Pulse Oximetry (%) 96 10/14/19 09:00 Constitutional: Yes: No Distress Eyes: Yes: Conjunctiva Clear HENT: Yes: Atraumatic Neck: Yes: Supple Cardiovascular: Yes: S1, S2 Respiratory: Yes: CTA Bilaterally Gastrointestinal: Yes: Soft Genitourinary: Yes: Incontinence Edema: No Labs: CBC, BMP 10/13/19 07:29 10/13/19 07:29 INR, PTT INR 0.90 (0.83-1.09) 10/09/19 13:30 Assessment/Plan Current Medications Generic Name Dose Route Start Last Admin Trade Name Freq PRN Reason Stop Dose Admin Acetaminophen 650 mg 10/09/19 18:16 Tylenol - PO Q4H PRN MILD PAIN 1-3 Cefuroxime Axetil 500 mg 10/14/19 10:00 10/14/19 09:45 Ceftin - PO 500 mg BID [facility] Administration Diphenhydramine HCl 25 mg 10/09/19 22:00 10/13/19 21:51 Benadryl - PO 25 mg HS [facility] Administration Heparin Sodium (Porcine) 5,000 unit 10/09/19 22:00 10/14/19 09:45 Heparin - SQ 5,000 unit BID [facility] Administration Potassium Chloride 10 meq/ 1,005 mls @ 35 mls/hr 10/12/19 20:01 10/13/19 22:08 Sodium Chloride IVPB 35 mls/hr Q24H [facility] Administration Senna 2 tab 10/09/19 22:00 10/13/19 21:51 Senna - PO 2 tab HS [facility] Administration Impression 1. hyponatremia 2. dementia 3. uti 4. hypokalemia Plan - will stop fluids - monitor lytes - encourage po intake - will follow prn
--- NOTE | 2019-10-14 15:19 | DS ---
Physical Exam: SUBJECTIVE: Patient seen and examined OBJECTIVE: Patient is a 79 year old female with a significant past medical history of dementia, admission earlier this year for urosepsis (enterobacter, ceftriaxone sensitive) p/w unwitnessed fall at home. She has dementia and is unable to contribute to history. Patient was found on the ground by her home health aide and family noted her to be more confused then her baseline. PER SON"S REQUEST - NO BENZOS OR SEROQUEL He uses benadryl at night if pt gets agitated and cannot fall asleep Patient to be discharged home tomorrow once her [employer] is set up. discussed with son. Vital Signs Period Temp Pulse Resp BP Sys/Rivera Pulse Ox Last 24 Hr 97.5 F-98.5 F 77-100 18-20 115-150/64-88 96-96 PHYSICAL EXAM GENERAL: The patient is awake, confused. spoke gibberish, then speech was clear HEAD: Normal with no signs of trauma. EYES: PERRL, extraocular movements intact, sclera anicteric, conjunctiva clear. No ptosis. ENT: Ears normal, nares patent, oropharynx clear without exudates NECK: Trachea midline, full range of motion, supple. LUNGS: left base with mild fine crackles. right lung clear HEART: Regular rate and rhythm ABDOMEN: Soft, nontender, nondistended, normoactive bowel sounds EXTREMITIES: no edema. right foot drop, right arm contracted (baseline?) NEUROLOGICAL: gibberish speech/alternating with clear speech. PSYCH: Normal mood, normal affect. 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 Dugan: You were admitted to [facility] on 10/09/2019 and will be discharged home today. You were diagnosed with a urinary tract infection and you were treated with IV antibiotics. We will be switching you to oral antibiotics of Ceftin 500mg twice per day for 5 more days. Here are our discharge instructions: Urinary tract infection: We have treated you with IV antibiotics, please continue taking CEFTIN 500mg TWICE per day for 5 more days It is important that you have your urine culture repeated after completing the antibiotics to assure that the infection is completely cleared. FOLLOW UPS: Please follow up with Dr. Vargas by calling his office to make an appointment. MEDICATIONS: Ceftin 500mg TWICE per day for 5 more days. Take with food. Thank you for allowing us to care for you. 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 Code(s): M62.421 - CONTRACTURE OF MUSCLE, RIGHT UPPER ARM (3) Fall Code(s): W19.XXXA - UNSPECIFIED FALL, INITIAL ENCOUNTER (4) Hyponatremia Code(s): E87.1 - HYPO-OSMOLALITY AND HYPONATREMIA (5) Malnutrition Code(s): E46 - UNSPECIFIED PROTEIN-CALORIE MALNUTRITION (6) Prophylactic measure Code(s): Z29.9 - ENCOUNTER FOR PROPHYLACTIC MEASURES, UNSPECIFIED (7) Suspected COVID-19 virus infection Code(s): Z20.828 - CONTACT W AND EXPOSURE TO OTH VIRAL COMMUNICABLE DISEASES (8) UTI (urinary tract infection) Code(s): N39.0 - URINARY TRACT INFECTION, SITE NOT SPECIFIED (9) Creutzfeldt-La disease, unspecified Code(s): A81.00 - CREUTZFELDT-LA DISEASE, UNSPECIFIED (10) DVT prophylaxis Code(s): Z29.9 - ENCOUNTER FOR PROPHYLACTIC MEASURES, UNSPECIFIED This patient is new to me today: No Emergency Visit: Yes ED Registration Date: 10/09/19 Care time: The patient presented to the Emergency Department on the above date and was hospitalized for further evaluation of their emergent condition. Critical Care patient: No - Discharge Referral Referred to [facility] No
[2019-10-14 21:13] VITALS: BP 119/65; PULSE 76; TEMP 98.4
[2019-10-14] MEDS: diphenhydrAMINE HCL 25 MG CAPSULE (FP) PO SCH (21:31)
[2019-10-14] MEDS: SENNOSIDES 8.6MG TABLET (FP) PO SCH (21:31)
== END 2019-10-14 23:00 | disposition home or self-care (01) | DRG 689 ==
LOC: JER 12:51 → JERBED 17:37 → J6WEST-2 10-10 23:14
PROVIDERS: ADMIT Internal Medicine; ATTEND Nurse Practitioner Family
DX: N39.0 Urinary tract infection, site not specified (principal); G93.41 Metabolic encephalopathy; E87.1 Hypo-osmolality and hyponatremia; E46 Unspecified protein-calorie malnutrition; A81.00 Creutzfeldt-Jakob disease, unspecified; F02.81 Dementia in other diseases classified elsewhere, unspecified severity, with behavioral disturbance; G30.9 Alzheimer's disease, unspecified; M62.421 Contracture of muscle, right upper arm; W19.XXXA Unspecified fall, initial encounter; Z68.21 Body mass index [BMI] 21.0-21.9, adult; R41.82 Altered mental status, unspecified; E87.6 Hypokalemia
CPT/HCPCS: 36415; 70450-TC; 71045-TC-FY; 71250-TC; 72125-TC; 72128-TC; 72131-TC; 80048; 80053; 81003; 82550; 82607; 83605; 83735; 84443; 84484; 85025; 85027; 85610; 85730; 87086; 87186; 93005; 93010; 97162-GP; 99285-25; J1644; U0003